=== PATIENT | female | born 1960 | race African-American/Black ===

== ENCOUNTER 2020-07-08 09:21 | Outpatient (REF) | payer OTHER, SELFPAY ==
--- NOTE | ~2020-07-08 | MM_ITS ---
EXAMINATION: MM SCREENING DIGITAL BREAST TOMOSYNTHESIS, BILATERAL CLINICAL INFORMATION: Screening. Asymptomatic. The lifetime risk of breast cancer based on the Tyrer-Cuzick Model is 5%. COMPARISON: Mammography: 07/03/2019, 06/19/2018, 06/03/2017 TECHNIQUE: Digital breast tomosynthesis is performed in both the craniocaudal and mediolateral oblique views along with computer-aided detection (CAD). Synthesized 2D images are generated from the tomosynthesis. FINDINGS: There are scattered areas of fibroglandular density (ACR BI-RADS breast composition Category b). Parenchymal pattern is similar to prior studies. Oval parenchymal asymmetry central mid 9:00 right breast is stable from prior exams. Neither breast shows developing density or interval mass or architectural abnormality. No abnormal calcifications. Skin contours are smooth. MM/MM tomosynthesis screening BI IMPRESSION: No mammographic evidence of malignancy. ASSESSMENT: BI-RADS 2: Benign RECOMMENDATION: Routine annual mammography screening. This patient's information was entered into a reminder system with a target due date for their next mammogram.
== END 2020-07-08 09:22 | disposition home or self-care (01) ==
LOC: HO.MAMMO 09:21
PROVIDERS: PCP Internal Medicine; Visit Provider Internal Medicine
DX: Z12.31 Encounter for screening mammogram for malignant neoplasm of breast (principal)
CPT/HCPCS: 77063; 77067

== ENCOUNTER 2020-11-09 09:34 | Outpatient (REF) | payer OTHER, SELFPAY ==
[2020-11-09 10:06] LABS: MANUAL DIFF FLAG NO
[2020-11-09 10:29] LABS: Basophils Percent Auto 0.2 % (0-2); Hematocrit 39.2 % (37-47); Hemoglobin 12.2 g/dl (12.0-16.0); Imm Gran Abs Auto 0.01 X10*3/uL (0.00-0.03); Imm Gran Pct Auto 0.2 % (0.0-0.4); Lymphocytes Absolute Auto 2.6 X10*3/uL (1.2-4.9); Lymphocytes Percent Auto 50.1 % (20-40); Mean Corpuscular HGB Conc 31.1 g/dl (31.0-35.0); Mean Corpuscular Hemoglobin 26.2 pg (27.0-33.0); Mean Corpuscular Volume 84.1 fL (80-98); Mean Platelet Volume 9.9 fL (9.4-12.3); Monocytes Absolute Auto 0.4 X10*3/uL (0.1-1.2); Monocytes Percent Auto 8.4 % (2-11); Neutrophils Absolute Auto 2.1 X10*3/uL (2.0-8.3); Neutrophils Percent Auto 41.1 % (45-73); Platelet Count 275 X10*3/uL (160-400); Red Blood Count 4.66 X10*6/uL (4.20-5.50); Red Cell Distribution Width 13.8 % (11.0-16.0); White Blood Count 5.1 X10*3/uL (4.8-10.8)
[2020-11-09 10:51] LABS: Alanine Aminotransferase 43 U/L (0-31); Albumin Level 4.6 g/dL (3.5-5.0); Alkaline Phosphatase 129 U/L (39-117); Anion Gap 12 (12-20); Aspartate Amino Transferase 34 U/L (5-31); Bilirubin Total 0.6 mg/dL (0.0-1.0); Blood Urea Nitrogen 13 mg/dL (9-16); Calcium 10.1 mg/dL (8.4-10.2); Carbon Dioxide 27 mmol/L (22-29); Chloride 106 mmol/L (96-108); Cholesterol 238 mg/dL; Estimated Glomerular Filt Rate > 60; Glucose Random 89 mg/dL (60-115); HDL Cholesterol 80 mg/dL; LDL Cholesterol Calculated 146 mg/dl; Potassium 4.4 mmol/L (3.3-5.1); Sodium 141 mmol/L (135-145); Total Protein 7.8 g/dL (6.5-8.0); Triglycerides 63 mg/dL
[2020-11-09 11:13] LABS: Thyroid Stimulating Hormone 1.38 uIU/mL (0.32-4.0)
[2020-11-09 12:12] LABS: Vitamin D 25-OH Total 30.8 ng/mL (>30)
[2020-11-09 17:46] LABS: Folate 19.3 ng/mL (> or = 4.0); Vitamin B12 985 pg/mL (200-900)
== END 2020-11-09 09:35 | disposition home or self-care (01) ==
LOC: HO.LAB 09:34
PROVIDERS: PCP Internal Medicine; Visit Provider Internal Medicine
DX: E78.00 Pure hypercholesterolemia, unspecified (principal)
CPT/HCPCS: 36415; 80053; 80061; 82306; 82607; 82746; 84439; 84443; 85025

== ENCOUNTER 2020-11-30 10:16 | Outpatient (REF) | payer OTHER, SELFPAY ==
--- NOTE | ~2020-11-30 | US_ITS ---
EXAMINATION: US ABDOMEN COMPLETE CLINICAL INFORMATION: Other specified abnormal findings of blood chemistry. COMPARISON: None TECHNIQUE: Real-time imaging of the abdominal viscera. FINDINGS: PANCREAS: Visualized portions of pancreas are normal in appearance. ABDOMINAL AORTA: The proximal, mid, and distal segments are normal in caliber. INFERIOR VENA CAVA: Visualized portions are normal. LIVER: Normal. The liver is normal in size. The liver contour is normal. Parenchymal echogenicity is normal. No focal hepatic lesion. There is no intrahepatic biliary duct dilatation seen. GALLBLADDER: Normal. The gallbladder is physiologically distended without evidence of stones, sludge, polyps, wall thickening or pericholecystic fluid. Negative sonographic Barlow's sign. COMMON BILE DUCT: Normal in caliber measuring 0.5 cm in diameter. RIGHT KIDNEY: Normal. No hydronephrosis. No renal calculi or focal parenchymal lesions. The kidney measures 9.9 cm in maximum dimension. LEFT KIDNEY: Normal. No hydronephrosis. No renal calculi or focal parenchymal lesions. The kidney measures 8.8 cm in maximum dimension. SPLEEN: Normal. The spleen measures 8.2 cm in maximum dimension. FREE FLUID: None. US/US abdomen complete IMPRESSION: Unremarkable sonographic imaging of the abdomen.
== END 2020-11-30 10:17 | disposition home or self-care (01) ==
LOC: HO.US 10:16
PROVIDERS: Visit Provider Internal Medicine
DX: R79.89 Other specified abnormal findings of blood chemistry (principal); R94.5 Abnormal results of liver function studies
CPT/HCPCS: 76700

== ENCOUNTER 2021-07-13 12:28 | Outpatient (REF) | payer OTHER, SELFPAY ==
--- NOTE | ~2021-07-13 | MM_ITS ---
EXAMINATION: MM SCREENING DIGITAL BREAST TOMOSYNTHESIS, BILATERAL CLINICAL INFORMATION: Screening. Asymptomatic. The lifetime risk of breast cancer based on the Tyrer-Cuzick Model is 7.5%. COMPARISON: Mammography: July 08, 2020 and studies dating back to March 02, 2014 TECHNIQUE: Digital breast tomosynthesis is performed in both the craniocaudal and mediolateral oblique views along with computer-aided detection (CAD). Synthesized 2D images are generated from the tomosynthesis. FINDINGS: There are scattered areas of fibroglandular density (ACR BI-RADS breast composition Category b). There are no significant masses, abnormal calcifications, or other abnormalities. MM/MM tomosynthesis screening BI IMPRESSION: There are no significant changes from prior study. ASSESSMENT: BI-RADS 1: Negative RECOMMENDATION: Routine annual mammography screening. This patient's information was entered into a reminder system with a target due date for their next mammogram.
== END 2021-07-13 12:29 | disposition home or self-care (01) ==
LOC: HO.MAMMO 12:28
PROVIDERS: PCP Internal Medicine; Visit Provider Internal Medicine
DX: Z12.31 Encounter for screening mammogram for malignant neoplasm of breast (principal)
CPT/HCPCS: 77063; 77067

== ENCOUNTER 2022-01-17 09:51 | Outpatient (REF) | payer OTHER, SELFPAY ==
[2022-01-17 10:05] LABS: MANUAL DIFF FLAG NO
[2022-01-17 10:18] LABS: Basophils Percent Auto 0.2 % (0-2); Imm Gran Abs Auto 0.01 X10*3/uL (0.00-0.03); Imm Gran Pct Auto 0.2 % (0.0-0.4); Lymphocytes Absolute Auto 2.4 X10*3/uL (1.2-4.9); Lymphocytes Percent Auto 46.5 % (20-40); Mean Corpuscular HGB Conc 31.6 g/dl (31.0-35.0); Mean Corpuscular Volume 82.3 fL (80.0-98.0); Mean Platelet Volume 9.7 fL (9.4-12.3); Monocytes Absolute Auto 0.5 X10*3/uL (0.1-1.2); Monocytes Percent Auto 8.6 % (2-11); Neutrophils Absolute Auto 2.3 x10*3/uL (2.0-8.3); Neutrophils Percent Auto 44.5 % (45-73); Platelet Count 288 X10*3/uL (160-400); Red Blood Count 4.62 X10*6/uL (4.20-5.50); Red Cell Distribution Width 14.2 % (11.0-16.0); White Blood Count 5.3 X10*3/uL (4.8-10.8)
[2022-01-17 10:48] LABS: Alanine Aminotransferase 35 U/L (0-31); Albumin Level 4.6 g/dL (3.5-5.0); Alkaline Phosphatase 124 U/L (39-117); Anion Gap 17 (12-20); Aspartate Amino Transferase 29 U/L (5-31); Bilirubin Total 0.6 mg/dL (0.0-1.0); Blood Urea Nitrogen 19 mg/dL (9-16); Calcium 9.7 mg/dL (8.4-10.2); Carbon Dioxide 25 mmol/L (22-29); Chloride 104 mmol/L (96-108); Cholesterol 227 mg/dL; Estimated Glomerular Filt Rate > 60; Glucose Random 94 mg/dL (60-115); HDL Cholesterol 75 mg/dL; LDL Cholesterol Calculated 138 mg/dl; Potassium 4.4 mmol/L (3.3-5.1); Sodium 142 mmol/L (135-145); Total Protein 7.7 g/dL (6.5-8.0); Triglycerides 70 mg/dL
[2022-01-17 11:11] LABS: Free T4 (Free Thyroxine) 1.25 ng/dL (0.71-1.85); Thyroid Stimulating Hormone 1.12 uIU/mL (0.32-4.0); Vitamin D 25-OH Total 40.9 ng/mL (>30)
[2022-01-17 11:12] LABS: Folate 19.4 ng/mL (> or = 4.0); Vitamin B12 741 pg/mL (200-900)
== END 2022-01-17 09:52 | disposition home or self-care (01) ==
LOC: HO.LAB 09:51
PROVIDERS: PCP Internal Medicine; Visit Provider Internal Medicine
DX: E78.00 Pure hypercholesterolemia, unspecified (principal)
CPT/HCPCS: 36415; 80053; 80061; 82306; 82607; 82746; 84439; 84443; 85025

== ENCOUNTER 2022-04-06 11:59 | Emergency (ER) | payer OTHER, SELFPAY ==
--- NOTE | ~2022-04-06 | CT_ITS ---
EXAMINATION: CT ABDOMEN AND PELVIS WITHOUT CONTRAST CLINICAL INFORMATION: Left back, flank, and left lower quadrant abdominal pain COMPARISON: None TECHNIQUE: Multidetector volumetric imaging was performed from the superior aspect of the liver through the pubic symphysis. Sagittal and coronal reformatted images were obtained on the technologist's workstation. This CT examination was performed using dose optimization techniques as appropriate, variously including the following: *Automated exposure control *Adjustment of mA and/or kV according to patient size (this includes techniques or standardized protocols for targeted exams where dose is matched to indication/reason for exam; i.e. extremities or head) *Use of iterative reconstruction technique DLP: 475 mGy-cm FINDINGS: LUNG BASES: Minimal bibasilar subsegmental atelectasis. LIVER, GALLBLADDER, AND BILIARY TREE: The liver is normal in size, shape, and attenuation. No focal hepatic lesion or biliary ductal dilatation is present. The gallbladder is unremarkable with no evidence of radiopaque gallstones, gallbladder wall thickening, or obvious pericholecystic inflammatory changes. PANCREAS: Unremarkable. SPLEEN: Unremarkable. ADRENAL GLANDS: Unremarkable. KIDNEYS AND URETERS: The kidneys are normal in size, shape, and attenuation. No hydronephrosis, hydroureter, or calculi seen. No perinephric stranding. BLADDER: Unremarkable. GASTROINTESTINAL TRACT: The small and large bowel are unremarkable. The appendix is unremarkable. No free air or ascites. ABDOMINAL WALL: No significant hernia is appreciated. LYMPH NODES: No lymphadenopathy. VASCULAR: Unremarkable. PELVIC VISCERA: The patient appears to be posthysterectomy. Trace free pelvic fluid. OSSEOUS STRUCTURES: No acute fracture or suspicious osseous lesion. Mild degenerative disc disease at L5-S1. Lower lumbar facet arthrosis. CT/CT abdomen pelvis wo IV con IMPRESSION: 1. No acute intra-abdominal process identified. 2. Trace free pelvic fluid.
--- NOTE | ~2022-04-06 | CT_ITS ---
EXAMINATION: CT HEAD WITHOUT CONTRAST CLINICAL INFORMATION: New onset headache. COMPARISON: CT angiogram of the neck 11/19/2018. TECHNIQUE: Contiguous axial imaging was performed from the skull base to vertex without intravenous administration of contrast. This CT examination was performed using dose optimization techniques as appropriate, variously including the following: *Automated exposure control *Adjustment of mA and/or kV according to patient size (this includes techniques or standardized protocols for targeted exams where dose is matched to indication/reason for exam; i.e. extremities or head) *Use of iterative reconstruction technique DLP: 607 mGy-cm FINDINGS: There is no acute intracranial hemorrhage or abnormal extra-axial collection. No intracranial mass effect or midline shift. Lateral and third ventricles are normal. No hydrocephalus. Holbrook-white matter differentiation is preserved and there is no evidence of acute territorial infarct. The calvarium and skull base are intact. Mastoid air cells and middle ear cavities are well-aerated. No active paranasal sinus disease. CT/CT head/brain wo IV con IMPRESSION: Normal CT scan of the head. No evidence of acute territorial infarct or hemorrhage. No intracranial mass effect or hydrocephalus.
[2022-04-06 12:12] VITALS: BP 129/89; PULSE 79; RESP 18; TEMP 36.6; O2SAT 99; BMI 27.6
--- NOTE | 2022-04-06 12:17 | ED_ITS ---
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 Injury <PAGE Jin - Last Filed: 04/06/22 12:25> Time Seen by Provider: 04/06/22 13:39 <PAGE Jin - Last Filed: 04/06/22 12:25> History of Present Illness HPI Narrative: patient with 2 complaints 1st complaint is right-sided low back pain worse with movement with no dysuria no numbness no weakness no tingling no radiation of pain Second complaint is a gradual onset headache that is behind her eyes in front of her head that has been going on for for 5 days, there is no nausea no vomiting no vision changes no dizziness no fainting no feeling faint no stiff neck no fever <PAGE Weiss - Last Filed: 04/06/22 15:59> Related Data Home Medications: Home Medications Medication Instructions Recorded Confirmed ascorbic acid (vitamin C) 500 mg mg PO 02/08/20 02/23/22 capsule cholecalciferol (vitamin D3) 25 25 mcg PO DAILY 02/08/20 02/23/22 mcg (1,000 unit) capsule cyanocobalamin (vitamin B-12) 1,000 mcg PO DAILY 02/08/20 02/23/22 1,000 mcg capsule multivitamin 1 tab PO DAILY 02/08/20 02/23/22 multivitamin with minerals 1 tab PO BEDTIME 11/04/20 02/23/22 (Hair,Skin and Nails tablet) Previous Rx's Medication Instructions Recorded polyethylene glycol 3350 17 gram 17 g PO DAILY 30 days #30 ea 11/06/21 oral powder packet (Miralax) bisacodyl 5 mg tablet,delayed 10 mg PO ONCE 1 day #2 tabs 01/31/22 release (Dulcolax (bisacodyl)) polyethylene glycol 3350 17 238 g PO ONCE #238 grams 01/31/22 gram/dose oral powder (Miralax) fexofenadine 180 mg tablet 180 mg PO DAILY #90 tabs 02/23/22 fluticasone propionate 50 2 spray intranasal DAILY #16 grams 02/23/22 mcg/actuation nasal spray,suspension acetaminophen 500 mg tablet 1,000 mg PO QID PRN pain #30 tabs 04/06/22 cyclobenzaprine 5 mg tablet 5 mg PO TID PRN muscle spasm #10 04/06/22 tabs naproxen 500 mg tablet (Naprosyn) 500 mg PO BID PRN pain #14 tabs 04/06/22 oxycodone 5 mg tablet 5 mg PO Q6H PRN pain #10 tabs 04/06/22 <PAGE Jin - Last Filed: 04/06/22 12:25> Allergies/Adverse Reactions: Allergies Allergy/AdvReac Type Severity Reaction Status Date / Time latex Allergy Unknown unknown Verified 02/23/22 11:39 seasonal Allergy Unknown Unknown Uncoded 11/06/21 12:59 <PAGE Jin - Last Filed: 04/06/22 12:25> Review of Systems Review of Systems: positive for back pain and headache Negatives are no fever no chills no dizziness no weakness no fainting no feeling faint no vision changes no nausea or vomiting no confusion no stiff neck no sore throat no difficulty breathing or swallowing no chest pain no abdominal pain no nausea vomiting or diarrhea no dysuria no frequency no numbness weakness or tingling no radiation of the back pain, no trouble walking no skin rash <PAGE Weiss - Last Filed: 04/06/22 15:59> Yes all other systems are reviewed and are negative <PAGE Weiss - Last Filed: 04/06/22 15:59> [facility] Past Medical History Source: nursing notes reviewed <PAGE Weiss - Last Filed: 04/06/22 15:59> Medical History: Medical History (Updated 04/06/22 @ 15:53 by PAGE Weiss) Allergic rhinitis Carotid aneurysm, left Hypercholesterolemia Obstructive sleep apnea Thoracic aortic ectasia Uterine fibroid <PAGE Jin - Last Filed: 04/06/22 12:25> Surgical History: Surgical History History of shoulder surgery History of tubal ligation S/P [id number] (total abdominal hysterectomy and bilateral salpingo-oophorectomy) <PAGE Jin Last Filed: 04/06/22 12:25> Family History Family History: Family History Father Diabetes Hypertension Throat cancer Mother Diabetes Hypertension Stroke Sister History of ETOH abuse Kidney disease <PAGE Jin - Last Filed: 04/06/22 12:25> Social History Social History: Social History Housing: Apartment Alcohol intake: current Alcohol intake frequency: a few times a month Patient Tobacco Use Status: Former Tobacco user Tobacco use type: Cigarette Years Smoked: stopped 2011 Smoked in Last 30 Days: No e-Cigarette/Vaping Use: Never Used Second Hand Smoke Exposure: No Advance Directives: No Advance Directives Information Provided: Yes service: No Current occupational status: employed Cognitive needs: No Hearing needs: No Vision needs: Yes <PAGE Jin - Last Filed: 04/06/22 12:25> Physical Exam Vital Signs: Vital Signs: Last Vital Signs Temp 98.7 F 04/06/22 14:26 Pulse 71 04/06/22 14:26 Resp 20 04/06/22 14:26 BP 146/98 H 04/06/22 14:26 Pulse Ox 99 04/06/22 14:26 O2 Del Method 04/06/22 14:26 BMI result Body Mass Index 27.6 <PAGE Jin - Last Filed: 04/06/22 12:25> Vital Signs: Last Vital Signs Temp 98.7 F 04/06/22 14:26 Pulse 71 04/06/22 14:26 Resp 20 04/06/22 14:26 BP 146/98 H 04/06/22 14:26 Pulse Ox 99 04/06/22 14:26 O2 Del Method 04/06/22 14:26 BMI result Body Mass Index 27.6 <PAGE Weiss - Last Filed: 04/06/22 15:59> general appearance no acute distress Head is normocephalic atraumatic The ears are clear The eyes pupils equal round reactive light extraocular motions are intact no redness no discharge no photophobia The pharynx is clear with moist mucous membranes no redness swelling or exudate Neck is supple Chest clear to auscultation bilateral Abdomen is soft and nontender Heart no murmur The back had reproducible right lower lumbar tenderness, pain was reproduced with movement, there is no CVA tenderness, the skin was normal no rash wound or redness, no focal bony tenderness Extremities full range of motion x4 Gait and balance were normal Neuro cranial nerves 2-12 intact as tested, patient is A&O x3, patient interaction both comprehension and expression are normal, motor is 5/5 x4, sens ation intact and symmetrical <PAGE Weiss - Last Filed: 04/06/22 15:59> Course Course Course Narrative: E-12:17PM - 61yoF presenting to the ED c/o left-sided back/left flank/left lower quadrant abdominal pain for the past few days worse today. Reports that she also had urinary sediment that appeared brown in color. She denies any fevers, dysuria, hematuria, diarrhea constipation or any other symptoms complaints or concerns at this time. Plan: Labs, UA, CT scan abdomen pelvis with IV contrast ordered at this time to evaluate possible kidney stone versus UTI. Patient is stable she will be sent back to the waiting room to be evaluated in the ED. <PAGE Jin - Last Filed: 04/06/22 12:25> RME-12:17PM - 61yoF presenting to the ED c/o left-sided back/left flank/left lower quadrant abdominal pain for the past few days worse today. Reports that she also had urinary sediment that appeared brown in color. She denies any fevers, dysuria, hematuria, diarrhea constipation or any other symptoms complaints or concerns at this time. Plan: Labs, UA, CT scan abdomen pelvis with IV contrast ordered at this time to evaluate possible kidney stone versus UTI. Patient is stable she will be sent back to the waiting room to be evaluated in the ED. CT of the head was done because of her new onset headache, CT was normal and patient has no accompanying neurologic deficit and in the ER pain was very mild CT of abdomen and pelvis was done to be sure there was no kidney stone or mass and there were no acute findings on the CT abdomen and pelvis done without contrast Urinalysis did not show signs of an infection and patient has no dysuria or frequency Labs were otherwise unremarkable Plan discussed with patient is a few days off work, analgesics and muscle relax er for the back and will follow with her doctor as needed <PAGE Weiss - Last Filed: 04/06/22 15:59> Medical Decision Making Lab Data MDM Lab Attestation statement: I reviewed the patient's lab results. <PAGE Weiss - Last Filed: 04/06/22 15:59> Result Diagrams: : 04/06/22 12:20 04/06/22 12:20 <PAGE Jin - Last Filed: 04/06/22 12:25> Labs: Lab Results 04/06/22 04/06/22 04/06/22 Range/Units 12:20 12:20 12:20 WBC 7.5 (4.8-10.8) X10*3/uL RBC 4.63 (4.20-5.50) X10*6/uL Hgb 11.9 L (12.0-16.0) g/dl Hct 37.4 (37.0-47.0) % MCV 80.8 (80.0-98.0) fL MCH 25.7 L (27.0-33.0) pg MCHC 31.8 (31.0-35.0) g/dl RDW 13.9 (11.0-16.0) % Plt Count 288 (160-400) X10*3/uL MPV 9.9 (9.4-12.3) fL Immature Gran % (Auto) 0.3 (0.0-0.4) % Neut % (Auto) 55.6 (45-73) % Lymph % (Auto) 37.0 (20-40) % Reeves % (Auto) 7.0 (2-11) % Eos % (Auto) 0.0 (0-4) % Baso % (Auto) 0.1 (0-2) % Lymph # (Auto) 2.8 (1.2-4.9) X10*3/uL Reeves # (Auto) 0.5 (0.1-1.2) X10*3/uL Eos # (Auto) 0.0 (0.0-0.4) X10*3/uL Baso # (Auto) 0.0 (0.0-0.2) X10*3/uL Abs Immat Gran (auto) 0.02 (0.00-0.03) X10*3/uL Absolute Neuts (auto) 4.2 (2.0-8.3) x10*3/uL Absolute Nucleated RBC 0.000 (0.0-0.012) X10*3/uL Nucleated RBC % (auto) 0.0 (0.0-0.2) /100WBC PT 11.8 (10.0-13.1) SEC INR 1.0 (0.9-1.1) Sodium 138 (135-145) mmol/L Potassium 3.8 (3.3-5.1) mmol/L Chloride 105 (96-108) mmol/L Carbon Dioxide 22 (22-29) mmol/L Anion Gap 15 (12-20) BUN 12 (9-16) mg/dL Creatinine 0.79 (0.5-1.4) mg/dL Estim Creat Clear Calc 68.7 Estimated GFR > 60 Random Glucose 89 (60-115) mg/dL Calcium 9.9 (8.4-10.2) mg/dL Magnesium 1.9 (1.6-2.6) mg/dL Total Bilirubin 0.7 (0.0-1.0) mg/dL AST 32 H (5-31) U/L ALT 35 H (0-31) U/L Alkaline Phosphatase 129 H (39-117) U/L Total Protein 7.5 (6.5-8.0) g/dL Albumin 4.5 (3.5-5.0) g/dL Urine Color Urine Appearance Urine pH (5.0-9.0) Ur Specific Poplar (1.005-1.025) Urine Protein (Neg-Trace) mg/dL Urine Glucose (UA) (Negative) mg/dL Urine Ketones (Negative) mg/dL Urine Blood (Negative) Urine Nitrite (Negative) Ur Leukocyte Esterase (Negative) Urine RBC (0-2) /HPF Urine WBC (0-5) /HPF Ur Squamous Epith Cells (0-2) /HPF Urine Bacteria (None Seen) Hyaline Casts (0-2) /LPF 04/06/ Range/Units 15:19 WBC (4.8-10.8) X10*3/uL RBC (4.20-5.50) X10*6/uL Hgb (12.0-16.0) g/dl Hct (37.0-47.0) % MCV (80.0-98.0) fL MCH (27.0-33.0) pg MCHC (31.0-35.0) g/dl RDW (11.0-16.0) % Plt Count (160-400) X10*3/uL MPV (9.4-12.3) fL Immature Gran % (Auto) (0.0-0.4) % Neut % (Auto) (45-73) % Lymph % (Auto) (20-40) % Reeves % (Auto) (2-11) % Eos % (Auto) (0-4) % Baso % (Auto) (0-2) % Lymph # (Auto) (1.2-4.9) X10*3/uL Reeves # (Auto) (0.1-1.2) X10*3/uL Eos # (Auto) (0.0-0.4) X10*3/uL Baso # (Auto) (0.0-0.2) X10*3/uL Abs Immat Gran (auto) (0.00-0.03) X10*3/uL Absolute Neuts (auto) (2.0-8.3) x10*3/uL Absolute Nucleated RBC (0.0-0.012) X10*3/uL Nucleated RBC % (auto) (0.0-0.2) /100WBC PT (10.0-13.1) SEC INR (0.9-1.1) Sodium (135-145) mmol/L Potassium (3.3-5.1) mmol/L Chloride (96-108) mmol/L Carbon Dioxide (22-29) mmol/L Anion Gap (12-20) BUN (9-16) mg/dL Creatinine (0.5-1.4) mg/dL Estim Creat Clear Calc Estimated GFR Random Glucose (60-115) mg/dL Calcium (8.4-10.2) mg/dL Magnesium (1.6-2.6) mg/dL Total Bilirubin (0.0-1.0) mg/dL AST (5-31) U/L ALT (0-31) U/L Alkaline Phosphatase (39-117) U/L Total Protein (6.5-8.0) g/dL Albumin (3.5-5.0) g/dL Urine Color Yellow Urine Appearance Clear Urine pH 5.0 (5.0-9.0) Ur Specific Poplar 1.020 (1.005-1.025) Urine Protein Negative (Neg-Trace) mg/dL Urine Glucose (UA) Negative (Negative) mg/dL Urine Ketones 15 (Negative) mg/dL Urine Blood Trace H (Negative) Urine Nitrite Negative (Negative) Ur Leukocyte Esterase Negative (Negative) Urine RBC 0-2 (0-2) /HPF Urine WBC 0-5 (0-5) /HPF Ur Squamous Epith Cells 6-10 (0-2) /HPF Urine Bacteria 1+ (None Seen) Hyaline Casts 0-2 (0-2) /LPF <PAGE Jin - Last Filed: 04/06/22 12:25> Lab Results 04/06/22 04/06/22 04/06/22 Range/Units 12:20 12:20 12:20 WBC 7.5 (4.8-10.8) X10*3/uL RBC 4.63 (4.20-5.50) X10*6/uL Hgb 11.9 L (12.0-16.0) g/dl Hct 37.4 (37.0-47.0) % MCV 80.8 (80.0-98.0) fL MCH 25.7 L (27.0-33.0) pg MCHC 31.8 (31.0-35.0) g/dl RDW 13.9 (11.0-16.0) % Plt Count 288 (160-400) X10*3/uL MPV 9.9 (9.4-12.3) fL Immature Gran % (Auto) 0.3 (0.0-0.4) % Neut % (Auto) 55.6 (45-73) % Lymph % (Auto) 37.0 (20-40) % Reeves % (Auto) 7.0 (2-11) % Eos % (Auto) 0.0 (0-4) % Baso % (Auto) 0.1 (0-2) % Lymph # (Auto) 2.8 (1.2-4.9) X10*3/uL Reeves # (Auto) 0.5 (0.1-1.2) X10*3/uL Eos # (Auto) 0.0 (0.0-0.4) X10*3/uL Baso # (Auto) 0.0 (0.0-0.2) X10*3/uL Abs Immat Gran (auto) 0.02 (0.00-0.03) X10*3/uL Absolute Neuts (auto) 4.2 (2.0-8.3) x10*3/uL Absolute Nucleated RBC 0.000 (0.0-0.012) X10*3/uL Nucleated RBC % (auto) 0.0 (0.0-0.2) /100WBC PT 11.8 (10.0-13.1) SEC INR 1.0 (0.9-1.1) Sodium 138 (135-145) mmol/L Potassium 3.8 (3.3-5.1) mmol/L Chloride 105 (96-108) mmol/L Carbon Dioxide 22 (22-29) mmol/L Anion Gap 15 (12-20) BUN 12 (9-16) mg/dL Creatinine 0.79 (0.5-1.4) mg/dL Estim Creat Clear Calc 68.7 Estimated GFR > 60 Random Glucose 89 (60-115) mg/dL Calcium 9.9 (8.4-10.2) mg/dL Magnesium 1.9 (1.6-2.6) mg/dL Total Bilirubin 0.7 (0.0-1.0) mg/dL AST 32 H (5-31) U/L ALT 35 H (0-31) U/L Alkaline Phosphatase 129 H (39-117) U/L Total Protein 7.5 (6.5-8.0) g/dL Albumin 4.5 (3.5-5.0) g/dL Urine Color Urine Appearance Urine pH (5.0-9.0) Ur Specific Poplar (1.005-1.025) Urine Protein (Neg-Trace) mg/dL Urine Glucose (UA) (Negative) mg/dL Urine Ketones (Negative) mg/dL Urine Blood (Negative) Urine Nitrite (Negative) Ur Leukocyte Esterase (Negative) Urine RBC (0-2) /HPF Urine WBC (0-5) /HPF Ur Squamous Epith Cells (0-2) /HPF Urine Bacteria (None Seen) Hyaline Casts (0-2) /LPF 12/16/22 Range/Units 15:19 WBC (4.8-10.8) X10*3/uL RBC (4.20-5.50) X10*6/uL Hgb (12.0-16.0) g/dl Hct (37.0-47.0) % MCV (80.0-98.0) fL MCH (27.0-33.0) pg MCHC (31.0-35.0) g/dl RDW (11.0-16.0) % Plt Count (160-400) X10*3/uL MPV (9.4-12.3) fL Immature Gran % (Auto) (0.0-0.4) % Neut % (Auto) (45-73) % Lymph % (Auto) (20-40) % Reeves % (Auto) (2-11) % Eos % (Auto) (0-4) % Baso % (Auto) (0-2) % Lymph # (Auto) (1.2-4.9) X10*3/uL Reeves # (Auto) (0.1-1.2) X10*3/uL Eos # (Auto) (0.0-0.4) X10*3/uL Baso # (Auto) (0.0-0.2) X10*3/uL Abs Immat Gran (auto) (0.00-0.03) X10*3/uL Absolute Neuts (auto) (2.0-8.3) x10*3/uL Absolute Nucleated RBC (0.0-0.012) X10*3/uL Nucleated RBC % (auto) (0.0-0.2) /100WBC PT (10.0-13.1) SEC INR (0.9-1.1) Sodium (135-145) mmol/L Potassium (3.3-5.1) mmol/L Chloride (96-108) mmol/L Carbon Dioxide (22-29) mmol/L Anion Gap (12-20) BUN (9-16) mg/dL Creatinine (0.5-1.4) mg/dL Estim Creat Clear Calc Estimated GFR Random Glucose (60-115) mg/dL Calcium (8.4-10.2) mg/dL Magnesium (1.6-2.6) mg/dL Total Bilirubin (0.0-1.0) mg/dL AST (5-31) U/L ALT (0-31) U/L Alkaline Phosphatase (39-117) U/L Total Protein (6.5-8.0) g/dL Albumin (3.5-5.0) g/dL Urine Color Yellow Urine Appearance Clear Urine pH 5.0 (5.0-9.0) Ur Specific Poplar 1.020 (1.005-1.025) Urine Protein Negative (Neg-Trace) mg/dL Urine Glucose (UA) Negative (Negative) mg/dL Urine Ketones 15 (Negative) mg/dL Urine Blood Trace H (Negative) Urine Nitrite Negative (Negative) Ur Leukocyte Esterase Negative (Negative) Urine RBC 0-2 (0-2) /HPF Urine WBC 0-5 (0-5) /HPF Ur Squamous Epith Cells 6-10 (0-2) /HPF Urine Bacteria 1+ (None Seen) Hyaline Casts 0-2 (0-2) /LPF <PAGE Weiss - Last Filed: 04/06/22 15:59> Discharge Plan Discharge Clinical Impression: Back pain, Headache <PAGE Jin - Last Filed: 04/06/22 12:25> Patient Disposition: Home, Self-Care <PAGE Jin - Last Filed: 04/06/22 12:25> Additional Instructions: our workup today did not find any dangerous condition CT exam of her head was normal no evidence of any mass or bleeding or tumor So for the headache it they continue follow with primary doctor, you could use Tylenol or Motrin as needed The workup for your back pain included a CT scan to make sure there are no kidney stones or other pathology and the scan was normal no sign of anything dangerous Urine test was normal Other labs did not show any acute abnormality Your exam is consistent with a strain in her lower back so we are writing for some pain medicine and muscle relaxer as well as a work note Follow with your doctor for possible physical therapy and further evaluation if symptoms continue Return to the ER any time any worse condition or any concerns <PAGE Jin - Last Filed: 04/06/22 12:25> Prescriptions: New naproxen [Naprosyn] 500 mg tablet 500 mg PO BID PRN (Reason: pain) Qty: 14 0RF acetaminophen 500 mg tablet 1,000 mg PO QID PRN (Reason: pain) Qty: 30 0RF cyclobenzaprine 5 mg tablet 5 mg PO TID PRN (Reason: muscle spasm) Qty: 10 0RF oxycodone 5 mg tablet 5 mg PO Q6H PRN (Reason: pain) Qty: 10 0RF Rx Instructions: Partial Fill upon patient request. No Action cholecalciferol (vitamin D3) 25 mcg (1,000 unit) capsule 25 mcg PO DAILY cyanocobalamin (vitamin B-12) 1,000 mcg capsule 1,000 mcg PO DAILY multivitamin Tablet 1 tab PO DAILY ascorbic acid (vitamin C) 500 mg capsule PO multivitamin with minerals [Hair,Skin and Nails] Tablet 1 tab PO BEDTIME polyethylene glycol 3350 [Miralax] 17 gram powder in packet 17 g PO DAILY 30 Days Qty: 30 2RF fexofenadine 180 mg tablet 180 mg PO DAILY Qty: 90 3RF fluticasone propionate 50 mcg/actuation spray,suspension 2 spray intranasal DAILY Qty: 16 3RF bisacodyl [Dulcolax (bisacodyl)] 5 mg tablet,delayed release (DR/EC) 10 mg PO ONCE 1 Days Qty: 2 0RF Rx Instructions: take 2 tabs at noon the day before your colonoscopy polyethylene glycol 3350 [Miralax] 17 gram/dose powder 238 g PO ONCE Qty: 238 0RF Rx Instructions: As directed by gastroenterology department at [facility] <PAGE Jin - Last Filed: 04/06/22 12:25> Stand Alone Forms: Work/School Release <PAGE Jin - Last Filed: 04/06/22 12:25>
[2022-04-06 12:31] LABS: MANUAL DIFF FLAG NO
[2022-04-06 12:32] LABS: Basophils Percent Auto 0.1 % (0-2); Hematocrit 37.4 % (37.0-47.0); Hemoglobin 11.9 g/dl (12.0-16.0); Imm Gran Abs Auto 0.02 X10*3/uL (0.00-0.03); Imm Gran Pct Auto 0.3 % (0.0-0.4); Lymphocytes Absolute Auto 2.8 X10*3/uL (1.2-4.9); Mean Corpuscular HGB Conc 31.8 g/dl (31.0-35.0); Mean Corpuscular Hemoglobin 25.7 pg (27.0-33.0); Mean Corpuscular Volume 80.8 fL (80.0-98.0); Mean Platelet Volume 9.9 fL (9.4-12.3); Monocytes Absolute Auto 0.5 X10*3/uL (0.1-1.2); Neutrophils Absolute Auto 4.2 x10*3/uL (2.0-8.3); Neutrophils Percent Auto 55.6 % (45-73); Platelet Count 288 X10*3/uL (160-400); Red Blood Count 4.63 X10*6/uL (4.20-5.50); Red Cell Distribution Width 13.9 % (11.0-16.0); White Blood Count 7.5 X10*3/uL (4.8-10.8)
[2022-04-06 12:42] LABS: Prothrombin Time 11.8 SEC (10.0-13.1)
[2022-04-06 12:51] LABS: Alanine Aminotransferase 35 U/L (0-31); Albumin Level 4.5 g/dL (3.5-5.0); Alkaline Phosphatase 129 U/L (39-117); Anion Gap 15 (12-20); Aspartate Amino Transferase 32 U/L (5-31); Bilirubin Total 0.7 mg/dL (0.0-1.0); Blood Urea Nitrogen 12 mg/dL (9-16); Calcium 9.9 mg/dL (8.4-10.2); Carbon Dioxide 22 mmol/L (22-29); Chloride 105 mmol/L (96-108); Creatinine Clr Calc Pharmacy 68.7; Estimated Glomerular Filt Rate > 60; Glucose Random 89 mg/dL (60-115); Magnesium 1.9 mg/dL (1.6-2.6); Potassium 3.8 mmol/L (3.3-5.1); Sodium 138 mmol/L (135-145); Total Protein 7.5 g/dL (6.5-8.0)
--- NOTE | 2022-04-06 13:59 | PC.NURSE ---
Pt off floor to ct.
[2022-04-06 14:26] VITALS: BP 146/98; PULSE 71; RESP 20; TEMP 37.1; O2SAT 99
[2022-04-06 15:32] LABS: Appearance Urine Clear; Color Urine Yellow; Glucose Urine UA Negative (Negative); Leukocyte Esterase Urine Negative (Negative); Nitrite Urine Negative (Negative); UMIC TRIGGER UACC YES; Urine Blood Trace (Negative); Urine Ketones 15 mg/dL (Negative); Urine Protein Negative (Neg-Trace)
[2022-04-06 15:35] LABS: Bacteria Urine 1+ (None Seen); Hyaline Casts Urine 0-2 /LPF (0-2); RBC Urine 0-2 /HPF (0-2); WBC Urine 0-5 /HPF (0-5)
--- NOTE | 2022-04-06 15:41 | PC.NURSE ---
PA to bedside for reeval, pt cleared for dc home.
== END 2022-04-06 16:06 | disposition home or self-care (01) ==
PROVIDERS: Physician Assistant Medical; Emergency Provider Student in an Organized Health Care Education/Training Program; PCP Internal Medicine
DX: M54.50 Low back pain, unspecified (principal); R51.9 Headache, unspecified
CPT/HCPCS: 36415; 70450; 74176; 80053; 81001; 83735; 85025; 85610; 99284

== ENCOUNTER 2022-07-19 10:30 | Outpatient (REF) | payer OTHER, SELFPAY ==
--- NOTE | ~2022-07-19 | MM_ITS ---
EXAMINATION: MM SCREENING DIGITAL BREAST TOMOSYNTHESIS, BILATERAL CLINICAL INFORMATION: Screening. Asymptomatic. The lifetime risk of breast cancer based on the Tyrer-Cuzick Model is 4.3%. COMPARISON: Mammography: July 13, 2021 and studies dating back to June 03, 2017 TECHNIQUE: Digital breast tomosynthesis is performed in both the craniocaudal and mediolateral oblique views along with computer-aided detection (CAD). Synthesized 2D images are generated from the tomosynthesis. FINDINGS: There are scattered areas of fibroglandular density (ACR BI-RADS breast composition Category b). There are no significant masses, abnormal calcifications, or other abnormalities. MM/MM tomosynthesis screening BI IMPRESSION: No significant changes ASSESSMENT: BI-RADS 1: Negative RECOMMENDATION: Routine annual mammography screening. This patient's information was entered into a reminder system with a target due date for their next mammogram.
== END 2022-07-19 10:31 | disposition home or self-care (01) ==
LOC: HO.MAMMO 10:30
PROVIDERS: Visit Provider Internal Medicine
DX: Z12.31 Encounter for screening mammogram for malignant neoplasm of breast (principal)
CPT/HCPCS: 77063; 77067

== ENCOUNTER 2022-11-01 07:32 | Day surgery (SDC) | payer OTHER, SELFPAY ==
[2022-10-30 14:19] VITALS: BMI 27.6
--- NOTE | 2022-11-01 08:38 | MHC.SHP ---
Pre-Procedural Eval Section A Date of Service: 11/01/22 Section B Chief Complaint: screening Details of Present Illness: PMH: Allergic rhinitis Carotid aneurysm, left Hypercholesterolemia Obstructive sleep apnea Thoracic aortic ectasia Uterine fibroid Surgical History: History of shoulder surgery History of tubal ligation S/P ROBERTO-BSO (total abdominal hysterectomy and bilateral salpingo-oophorectomy) Present Medications: see Short Stay Collaborative assessment Allergies: Allergies Allergy/AdvReac Type Severity Reaction Status Date / Time latex Allergy Unknown unknown Verified 02/23/22 11:39 seasonal Allergy Unknown Unknown Uncoded 11/06/21 12:59 Review of Systems Review of Systems Comment: Ten point ROS negative Exam Exam Comment: Gen appear: No acute distress HEENT: no icterus Chest: No overt resp distress Abd: soft, nontender, nondistended Psych: Stable affect, answering questions appropriately Neuro: A/Ox3 noted to move all extremities spontaneously Ext: no peripheral edema Plan Diagnosis/Plan: Unchanged I have reviewed the history and physical and performed a pertinent physical examination on my patient. No changes have occurred unless specified. Time Spent With Patient Time: Total time managing care of this patient today ____ minutes.
[2022-11-01 09:25] VITALS: BP 127/86; PULSE 67; RESP 15; TEMP 36.3; O2SAT 98
--- NOTE | 2022-11-01 09:40 | ECG_ITS ---
Test Reason : t wave inversion Blood Pressure : / mmHG Vent. Rate : 063 BPM Atrial Rate : 063 BPM P-R Int : 218 ms QRS Dur : 098 ms QT Int : 424 ms P-R-T Axes : 016 -34 -50 degrees QTc Int : 433 ms Sinus rhythm with 1st degree A-V block Left axis deviation Moderate voltage criteria for LVH, may be normal variant ( R in aVL , Hamlin product ) T wave abnormality, consider anterior ischemia Abnormal ECG No previous ECGs available Referred By: Seymour Goodwin Electronically Signed By:PIPER MAGAÑA MD
[2022-11-01] MEDS: Lactated Ringers 1,000 ML 100 ML IVCONT (09:50)
--- NOTE | 2022-11-01 09:52 | HO.ANESPROP2 ---
HPI - Anesthesia Eval Consult details Narrative: for colonoscopy [facility] Active Problems Active Problems: All Active Problems (Updated 11/01/22 @ 09:03 by Alexandra Todd RN) Annual physical exam (Acute) LFTs abnormal (Acute) Well woman exam (Acute) Overweight (BMI 25.0-29.9) (Acute) Constipation (Acute) Cough (Acute) Sleep apnea (Acute) Encounter for screening for malignant neoplasm of colon (Acute) Hypercholesterolemia (Acute) Allergic rhinitis (Acute) Obstructive sleep apnea (Acute) Past Medical History Medical History Allergic rhinitis Carotid aneurysm, left Hypercholesterolemia Obstructive sleep apnea Thoracic aortic ectasia Uterine fibroid Family History Family History Father Diabetes Hypertension Throat cancer Mother Diabetes Hypertension Stroke Sister History of ETOH abuse Kidney disease Family history of problems with anesthesia: No Surgical History Surgical History History of shoulder surgery History of tubal ligation Hx of colonoscopy S/P ROBERTO-BSO (total abdominal hysterectomy and bilateral salpingo-oophorectomy) History of Problems with Anesthesia: No Social History Social History Housing: Apartment Alcohol intake: current Alcohol intake frequency: a few times a month Patient Tobacco Use Status: Former Tobacco user Quit Date: 20 yrs ago Tobacco use type: Cigarette Years Smoked: stopped 2010 e-Cigarette/Vaping Use: Never Used Second Hand Smoke Exposure: No Use of substances other than those prescribed or required for medical reasons: No Are you DNR?: No Advance Directives: No Advance Directives Information Provided: Yes service: No Current occupational status: employed Cognitive needs: No Hearing needs: No Vision needs: Yes Meds Allergies Allergy/AdvReac Type Severity Reaction Status Date / Time latex Allergy Unknown unknown Verified 11/01/22 09:04 seasonal Allergy Unknown Unknown Uncoded 11/06/21 12:59 Active Medications: Current Medications Albuterol Sulfate (Albuterol Sulfate (0.083%) 2.5 Mg/3 Ml Vial.Neb) 2.5 mg INHALE ONCE PRN PRN Reason: Shortness of Breath/Wheezing Lactated Ringer's (Lr) 1,000 mls @ 100 mls/hr IVCONT .Q10H FAISAL Sodium Biphosphate/Sodium Phosphate (Sodium Phosphate,[place]-Dibasic 133 Ml Enema) 133 ml MO ONCE FAISAL Home Medications Medication Instructions Recorded Confirmed Last Taken Type ascorbic acid (vitamin C) 500 mg mg PO 02/08/20 02/23/22 Unknown History capsule cholecalciferol (vitamin D3) 25 25 mcg PO DAILY 02/08/20 02/23/22 Unknown History mcg (1,000 unit) capsule cyanocobalamin (vitamin B-12) 1,000 mcg PO DAILY 02/08/20 02/23/22 Unknown History 1,000 mcg capsule Exam Exam Date and Time: November 01, 2022 0952 Height,Weight and Vital Signs: Height 5 ft 2 in Weight 68.492 kg Last Vital Signs Temp 97.3 F 11/01/22 09:25 Pulse 67 11/01/22 09:25 Resp 15 11/01/22 09:25 BP 127/86 11/01/22 09:25 Pulse Ox 98 11/01/22 09:25 O2 Del Method Room Air 11/01/22 09:25 Airway Mallampati Class: II TM Dist: >3cm Neck ROM: Full Heart: rrr Lungs: cta Assessment and Plan Assessment Anesthesia Assessment: Anesthesia Plan Discussed Final Anesthetic Review Family History of Problems with Anesthesia: No History of Problems with Anesthesia: No NPO: Yes ASA Class: II Final Preanesthetic Review: No Changes in Pt Med Stat, Meds/Allgs Chart Reviewed, Consent Obtained/Reviewed and Anes Risks/Benef Reviewed Patient Risk: Low Procedure Risk: Low Anesthetic Plan Anesthetic Plan: MAC: Disposition: Standard PACU
--- NOTE | 2022-11-01 10:05 | PC.NURSE ---
t wave inversion noted on rythym. anes made aware and eval'd at bedside. ekg done. medical hx reviewed with anes and pt along with ekg and ok'd to proceed. pt asymptomatic
--- NOTE | 2022-11-01 10:54 | P.OP_ITS ---
Operative Note Operative Note Date of Service: 11/01/22 Narrative: Procedure: Colonoscopy Indication: Screening Endoscopist: Lucy Rivera MD Anesthesia Provider: Jerald Bonner MD Anesthesia type: MAC Instrument: Olympus [id number]-H190L Consent: Indication, risks vs benefits, and alternatives were discussed with the patient who gave written informed consent to proceed. EKG, pulse, pulse oximetry and blood pressure were monitored throughout the procedure. Please see anesthesia flowsheet. Procedure: The patient was brought to the procedure room and placed in the left lateral decubitus position. IV medications were administered by the anesthesia provider in attendance. A digital rectal exam was performed which was normal. A distal attachment cap was affixed to the tip of the scope and the colonoscope was then inserted through the anus and advanced through the colon to the cecum at 75 cm,and terminal ileum. Mucosa was carefully examined under high definition white light as the instrument was slowly withdrawn in a retrograde panoramic fashion. Retroflexion was performed in rectum. The procedure was not difficult. There were no immediate obvious complications. The quality of the prep was BBPS: 2+3+3 = adequate Withdrawal time 12 minutes. Limitations: No limitations. Findings: Mucosa: Normal to cecum and terminal ileum. Protruding lesions: * 1 sessile polyp of size 4 mm in sigmoid colon. Cold snare polypectomy was performed. The polyp was completely removed and retrieved. * Medium internal hemorrhoids without stigmata of recent bleeding. Impression: 1. Normal colon and terminal ileum mucosa 2. Total of 1 polyp removed from sigmoid colon. 3. Internal hemorrhoids Recommendations: - Follow path results. - Repeat colonoscopy in 7-10 years if polyp is an adenoma.
[2022-11-01 11:36] VITALS: BP 120/76; PULSE 75; RESP 18; TEMP 37; O2SAT 94
[2022-11-01 11:51] VITALS: BP 124/82; PULSE 76; RESP 20; TEMP 36.7; O2SAT 99
== END 2022-11-01 12:10 | disposition home or self-care (01) ==
PROVIDERS: PCP Internal Medicine; Visit Provider Internal Medicine
PROC: 0DJD8ZZ Inspection of Lower Intestinal Tract, Via Natural or Artificial Opening Endoscopic (ICD-10-PCS; CPT 45378; principal; 2022-11-01 10:40)
DX: Z12.11 Encounter for screening for malignant neoplasm of colon (principal); K63.5 Polyp of colon; K64.8 Other hemorrhoids; J30.2 Other seasonal allergic rhinitis; Z87.891 Personal history of nicotine dependence; Z91.040 Latex allergy status; E78.00 Pure hypercholesterolemia, unspecified; I72.0 Aneurysm of carotid artery; G47.33 Obstructive sleep apnea (adult) (pediatric); Z79.899 Other long term (current) drug therapy; Z98.890 Other specified postprocedural states
CPT/HCPCS: 45385; 88305; 93005

== ENCOUNTER → 2022-11-01 07:32 | Outpatient (BNV) | payer OTHER, SELFPAY | PROVIDERS: PCP Internal Medicine; Visit Provider Internal Medicine | DX: Z12.11 Encounter for screening for malignant neoplasm of colon (principal); D12.5 Benign neoplasm of sigmoid colon; K64.8 Other hemorrhoids | CPT/HCPCS: 45385 ==

== ENCOUNTER → 2022-11-01 09:40 | Outpatient (BNV) | payer OTHER, SELFPAY | PROVIDERS: PCP Internal Medicine; Visit Provider Internal Medicine Cardiovascular Disease | DX: I44.0 Atrioventricular block, first degree (principal) | CPT/HCPCS: 93010 ==

== ENCOUNTER 2022-11-07 10:27 | Outpatient (AMB) | payer OTHER, SELFPAY ==
[2022-11-07 10:44] VITALS: BP 128/72; PULSE 75; O2SAT 99; BMI 26.9
--- NOTE | 2022-11-07 10:44 | A.OFFPC_ITS ---
Vital Signs 11/07/22 10:44 Height 5 ft 2 in Weight 147 lb BMI 26.9 BP 128/72 Blood Pressure Location Lt brachial Position Sitting Pulse 75 Pulse Source Pulse Oximeter Pulse Oximetry (%) 99 Oxygen Delivery Method Room Air Intake Visit Reasons: Annual Exam/ ear infection Allergies latex Allergy (Unknown, Verified 11/07/22 10:45) unknown seasonal Allergy (Unknown, Uncoded 11/07/22 10:45) Unknown Medication List - Last Reconciled 11/07/22 by Canelo Sidhu MD acetaminophen 1,000 mg (2 x 500 mg) PO QID PRN ascorbic acid (vitamin C) mg PO cholecalciferol (vitamin D3) 25 mcg PO DAILY cyanocobalamin (vitamin B-12) 1,000 mcg PO DAILY fexofenadine 180 mg PO DAILY fluticasone propionate 50 mcg/actuation 2 sprays intranasal DAILY Tobacco use date assessed: 11/07/22 Dental Screening Dental Screen Date: 11/07/22 Did you have a dental visit in the last 12 months?: Yes Did you have a dental problem in the last 6 months where you did not have access to dental care?: No Was dental information given to patient?: Patient has dentist HPI Annual Exam/ ear infection HPI Details 61-year-old overweight female with hypercholesterolemia last seen in February 2022 coming in for physical exam. Colonoscopy is up-to-date mammograms up to date [facility] Medical History (Updated 11/07/22 @ 11:16 by Canelo Sidhu MD) Allergic rhinitis Carotid aneurysm, left Hypercholesterolemia Obstructive sleep apnea Sleep apnea Thoracic aortic ectasia Uterine fibroid Surgical History History of shoulder surgery History of tubal ligation Hx of colonoscopy S/P ROBERTO-BSO (total abdominal hysterectomy and bilateral salpingo-oophorectomy) Family History (Updated 11/07/22 @ 10:45 by Nataliya Linton CMA) Father Diabetes Hypertension Throat cancer Mother Diabetes Hypertension Stroke Sister History of ETOH abuse Kidney disease Social History (Updated 11/07/22 @ 11:11 by Canelo Sidhu MD) Housing: Apartment Alcohol intake: current Alcohol intake frequency: a few times a month Patient Tobacco Use Status: Former Tobacco user Quit Date: 20 yrs ago Tobacco use type: Cigarette Years Smoked: stopped 2010 e-Cigarette/Vaping Use: Never Used Second Hand Smoke Exposure: No service: No Current occupational status: employed Cognitive needs: No Hearing needs: No Vision needs: Yes Questionnaire PHQ-9 Over the last 2 weeks, how often have you been bothered by any of the following problems? 1. Little interest or pleasure in doing things: not at all 2. Feeling down, depressed, or hopeless: not at all 3. Trouble falling or staying asleep, or sleeping too much: not at all 4. Feeling tired or having little energy: not at all 5. Poor appetite or overeating: not at all 6. Feeling bad about yourself - or that you are a failure or have let yourself or your family down: not at all 7. Trouble concentrating on things, such as reading the newspaper or watching television: not at all 8. Moving or speaking so slowly that other people could have noticed. Or the opposite - being so fidgety or restless that you have been moving around a lot more than usual: not at all 9. Thoughts that you would be better off or of hurting yourself in some way: not at all Total score: 0 Depression Screening Interpretation: Negative Source: Developed by Drs. Elmer Lim, Laura Otto, Tavo Basurto and colleagues, with an educational radha from [employer]. Thrive Questionnaire Date Thrive assessed: 11/07/22 I am a: Patient What is your living situation today?: I have a steady place to live Within the past 12 months, did the food you bought not last and you didn't have the money to get more?: Never true Within the past 12 months, did you worry whether your food would run out before you got money to buy more?: Never true Do you have trouble paying for medicines?: No Do you have trouble getting transportation to medical appointments?: No Do you have trouble paying your heating and electricity bill?: No Do you have trouble taking care of your child, family member or friend?: No Do you have trouble with day-to-day activities such as bathing, preparing meals, shopping, managing finances, etc.?: No Are you currently unemployed and looking for a job?: No Are you interested in more education?: No Currently or been in a relationship where the following occur: no concerns reported AUDIT C Alcohol Use Questionnaire (AUDIT-C) 1. How often do you have a drink containing alcohol?: 2-3 times a week 2. How many drinks containing alcohol do you have on a typical day when you are drinking?: 1 or 2 3. How often do you have six or more drinks on one occasion?: Never Total Score: 3 MISHEL-7 AMB Questionnaire MISHEL-7 Date MISHEL - 7 assessed: 11/07/22 Feeling nervous, anxious, or on edge: 0 = Not at all Not being able to stop or control worryin = Not at all Worrying too much about different things: 0 = Not at all Trouble relaxin = Not at all Being so restless that it is hard to sit still: 0 = Not at all Becoming easily annoyed or irritable: 0 = Not at all Feeling afraid as if something awful might happen: 0 = Not at all Total MISHEL-7 score (0-4 normal; 5-9 mild; 10-14 moderate; 15-21 severe): 0 Source: Developed by Drs. Elmer Lim, Laura Otto, Tavo Basurto and colleagues, with an educational radha from [employer]. Review of Systems Const Denies poor appetite and Denies weakness Eyes Denies no additional complaints ENT Reports Normal hearing present Card Denies chest pain, Denies syncope, Denies rapid heart rate and Denies dyspnea Resp Denies cough and Denies dyspnea GI Denies change in stool character, Reports constipation, Denies diarrhea, Denies nausea and Denies vomiting Denies urinary frequency, Denies difficulty voiding and Denies dysuria Neuro Reports Normal hearing present, Denies confusion, Denies syncope and Denies weakness Psych Denies confusion Physical exam (Primary Care) Vital Signs: Last Vital Signs Pulse 75 11/07/22 10:44 BP 128/72 11/07/22 10:44 Pulse Ox 99 11/07/22 10:44 Oxygen Delivery Method Room Air 11/07/22 10:44 BMI result Body Mass Index 26.9 Tobacco/Smoking Status: Tobacco use Status Tobacco use date assessed 11/07/22 11/07/22 10:49 Patient Tobacco Use Status Former Tobacco user 11/07/22 10:49 Tobacco use type Cigarette 11/07/22 10:49 e-Cigarette/Vaping Use Never Used 11/07/22 10:49 PHQ-9: PHQ-9 Score PHQ-9: Total score 0 11/07/22 10:49 Depression Screening Interpretation: Negative Thrive Assessment: Date of Thrive Assessment Date Thrive assessed 11/07/22 11/07/22 10:49 Currently or been in a relationship where the following occur: no concerns reported Const General: alert and awake; No confusion Orientation/consciousness: No confusion HENMT Head: Yes normocephalic Ears: external ears normal and TM's normal bilaterally Face and sinus: Yes normal facial exam Mouth: moist mucous membranes Throat: Yes tonsils normal Eyes Conjunctivae: conjunctivae normal Pupils: Equal, round and reactive pupils present and Pupil accommodation reflex normal Direct Ophthalmoscopy: normal light reflex Neck Neck: No lymphadenopathy Thyroid: Thyroid normal Chest Chest palpation & inspection: normal inspection of the chest Resp Effort & Inspection: normal respiratory effort and no audible wheezes Auscultation: clear to auscultation bilaterally, no crackles, no wheezes and lung sounds not diminished Cardio Rate: regular rate Rhythm: regular rhythm Peripheral pulses: radial pulses present and dorsalis pedis present GI Palpation (GI): no masses Auscultation: normal bowel sounds and normoactive bowel sounds Rectal Exam - Female: deferred Skin General skin exam: no rashes or lesions noted Rashes: no rashes Neuro General: deep tendon reflexes 2+ bilaterally and No confusion Cranial nerves: Yes Equal, round and reactive pupils present, Yes Midline tongue present, Yes Normal hearing present and Yes Ability to bilaterally elevate shoulders present Cognition (Neuro): normal cognition Gait exam (Neuro): Normal gait present Motor exam (neuro): 5/5 motor strength present throughout Deep tendon reflexes (DTR's): Right brachioradialis reflex intensity grade: 2+, Left brachioradialis reflex intensity grade: 2+, Right patellar reflex intensity grade: 2+ and Left patellar reflex intensity grade: 2+ Extrem General: No edema Assessment and Plan Assessment & Plan (1) Annual physical exam: Code(s): Z00.00 - Encounter for general adult medical examination without abnormal findings (2) Overweight (BMI 25.0-29.9): Code(s): E66.3 - Overweight Plan: Diet and exercise (3) Hypercholesterolemia: Comment: no meds currently Code(s): E78.00 - Pure hypercholesterolemia, unspecified Plan: Avoid fried foods, chicken skin, eggs, butter margarine, pastries and meat. Be it pork or beef they have a lot of cholesterol LDL goal of less than 130 and triglyceride of less than 150 (4) Obstructive sleep apnea: Comment: March 2018 10 cm fullface mask, cannot tolerate Code(s): G47.33 - Obstructive sleep apnea (adult) (pediatric) (5) Mild anemia: Code(s): D64.9 - Anemia, unspecified Plan: Will continue to monitor (6) Carotid aneurysm, left: Code(s): I72.0 - Aneurysm of carotid artery Plan: CTA requested Orders: Orders CT angio head neck Today I72.0 - Aneurysm of carotid artery Vitamin B12 and Folate Today E78.00 - Pure hypercholesterolemia, unspecified Comprehensive Met. Panel Today E78.00 - Pure hypercholesterolemia, unspecified Lipid Panel Today E78.00 - Pure hypercholesterolemia, unspecified Free T4 (Free Thyroxine) Today E78.00 - Pure hypercholesterolemia, unspecified Thyroid Stimulating Hormone Today E78.00 - Pure hypercholesterolemia, unspecified Vitamin D 25-OH Total Today E78.00 - Pure hypercholesterolemia, unspecified Complete Blood Count Auto Diff Today E78.00 - Pure hypercholesterolemia, unspecified Ferritin Today D64.9 - Anemia, unspecified IRON PROFILE Today D64.9 - Anemia, unspecified Reticulocyte Count Today D64.9 - Anemia, unspecified Referrals Ear/Nose/Throat Referral J30.9 - Allergic rhinitis, unspecified Sleep Medicine Referral G47.33 - Obstructive sleep apnea (adult) (pediatric) Medications: Refilled fexofenadine 180 mg PO DAILY 90 tabs 3RF fluticasone propionate 50 mcg/actuation 2 sprays intranasal DAILY 16 grams 3RF J30.9 - Allergic rhinitis, unspecified cyclobenzaprine 5 mg PO TID PRN 30 tabs 0RF muscle spasm D64.9 - Anemia, unspecified Coding Level of Care Code Est Pt Prev Care 40-64y(28717) Diagnoses Annual physical exam Z00.00 Overweight (BMI 25.0-29.9) E66.3 Hypercholesterolemia E78.00 Obstructive sleep apnea G47.33 Mild anemia D64.9 Carotid aneurysm, left I72.0
== END 2022-11-07 11:41 | disposition home or self-care (01) ==
PROVIDERS: PCP Internal Medicine; Visit Provider Internal Medicine
DX: Z00.00 Encounter for general adult medical examination without abnormal findings (principal); E66.3 Overweight; E78.00 Pure hypercholesterolemia, unspecified; I72.0 Aneurysm of carotid artery; G47.33 Obstructive sleep apnea (adult) (pediatric); D64.9 Anemia, unspecified
CPT/HCPCS: 99396

== ENCOUNTER 2022-11-19 14:25 | Outpatient (AMB) | payer OTHER, SELFPAY ==
[2022-11-19 14:38] VITALS: BP 128/76; PULSE 68; BMI 27.1
--- NOTE | 2022-11-19 14:38 | MHC.OFFVIS ---
Intake Vital Signs 11/19/22 14:38 Height 5 ft 2 in Weight 148 lb 2.41 oz BMI 27.1 BP 128/76 Blood Pressure Location Lt brachial Position Sitting Pulse 68 Intake Visit Reasons: S/p colo-dee dee Intake Note: Shara presents in office as a est.patient for a post-op f/u for colo. pt got it done 11.01.22 PT CC: pt reports having constipation , sore, tender pt denies any other GI Issues. 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 Denies any issues with anesthesia in the past.? History of sleep apnea just recently unable to use her machine as she does not have supplies needed. Patient was encouraged to call sleep medicine to help her order the supplies. Patient was seen by them before. No history infectious diseases in the past or present.? Not on any anticoagulation therapy.? No family or personal history of colon cancer or polyps.? Patient denies melena, hematochezia, unintentional weight loss or ribbon like stools.? Discussed at length the pre-procedure,? prep, diet & medications as well as what to expect prior, during and after the procedure.?? Stressed the importance of good bowel prep. ?Recommended the use of Vaseline or Calmoseptine OTC & baby wipes with bowel movements to promote comfort.? ?Patient verbalizes understanding and agrees to plan of care.? She was given the opportunity to ask questions and all questions answered.? We will see her after the procedure.? Sleep apnea Patient was encouraged to call sleep medicine for supplies. Unable to use her CPAP machine due to not having supplies. Plan Medications New bisacodyl (Dulcolax (bisacodyl)) take 2 tabs at noon the day before your colonoscopy 10 mg (2 x 5 mg) PO ONCE 1 day 2 tabs 0RF Z12.11 polyethylene glycol 3350 (Miralax) As directed by gastroenterology department at [facility] 238 grams PO ONCE 238 grams 0RF Z12.11 COLONOSCOPY Findings: Mucosa: Normal to cecum and terminal ileum. Protruding lesions: 1 sessile polyp of size 4 mm in sigmoid colon. Cold snare polypectomy was performed. The polyp was completely removed and retrieved. Medium internal hemorrhoids without stigmata of recent bleeding. Impression: 1. Normal colon and terminal ileum mucosa 2. Total of 1 polyp removed from sigmoid?colon. 3. Internal hemorrhoids Recommendations: - Follow path results. - Repeat colonoscopy in 7-10 years if polyp is an adenoma. PATHOLOGY RESULTS Diagnosis Colon, sigmoid, polyp, biopsy:? Clinically polypoid colonic mucosa noted; negative for a hyperplastic or neoplastic process. TODAY'S VISIT: Patient is here today for follow-up and to discuss colonoscopy results. Patient denies any ill effects from the prep, anesthesia or procedure itself. However patient does report in the last few days she has been little bit constipated. Patient states that she used to take MiraLax, however her in sure and did not pay for it. Patient states that she was doing well when she was taking it. Patient reports left lower quadrant pain when she is constipated. Sometimes no bowel movements for couple days. Patient denies melena, hematochezia, unintentional weight loss or ribbon like stools. Patient denies any dyspepsia, dysphagia or odynophagia. Patient colonoscopy results discussed with patient. [facility] Medical History Allergic rhinitis Carotid aneurysm, left Hypercholesterolemia Obstructive sleep apnea Sleep apnea Thoracic aortic ectasia Uterine fibroid Surgical History History of shoulder surgery History of tubal ligation Hx of colonoscopy S/P ROBERTO-BSO (total abdominal hysterectomy and bilateral salpingo-oophorectomy) Family History Father Diabetes Hypertension Throat cancer Mother Diabetes Hypertension Stroke Sister History of ETOH abuse Kidney disease Social History Housing: Apartment Alcohol intake: current Alcohol intake frequency: a few times a month Patient Tobacco Use Status: Former Tobacco user Quit Date: 20 yrs ago Tobacco use type: Cigarette Years Smoked: stopped 2010 e-Cigarette/Vaping Use: Never Used Second Hand Smoke Exposure: No service: No Current occupational status: employed Cognitive needs: No Hearing needs: No Vision needs: Yes Review of Systems Const Denies weight gain and Denies weight loss ENT Reports no additional complaints, Denies dysphagia and Denies odynophagia Card Reports no additional complaints Resp Reports no additional complaints GI Reports abdominal pain (LLQ), Denies belching, Denies melena, Reports bloating, Reports constipation, Denies dysphagia, Denies excessive flatus, Denies dyspepsia, Denies heartburn, Denies diarrhea, Denies loose stools, Denies nausea, Denies odynophagia and Denies vomiting Reports no additional complaints Musc Reports no additional complaints Neuro Reports no additional complaints Psych Reports no additional complaints Endo Reports no additional complaints Physical Exam Vital Signs: Last Vital Signs Pulse 68 11/19/22 14:38 BP 128/76 11/19/22 14:38 BMI result Body Mass Index 27.1 Const General: healthy appearing, no acute distress and well developed Nutritional Appearance: well nourished Orientation/consciousness: patient oriented x3 HEENT Head: Yes normal to inspection, Yes normocephalic and Yes atraumatic Face and sinus: Yes normal facial exam Mouth: Normal oral and palatal mucosa present Throat: Yes posterior oropharynx normal, Yes tonsils normal and Yes uvula midline Eyes General: appearance normal, both eyes and all related structures Neck Neck: Yes normal visual inspection, Yes full ROM and Yes trachea midline Thyroid: Thyroid normal Resp Effort & Inspection: normal respiratory effort, able to speak in complete sentences, no tracheal deviation and symmetric chest movement Auscultation: clear to auscultation bilaterally Cardio Rate: regular rate Heart sounds: S1 normal heart sound present and S2 normal heart sound present GI Inspection: Yes normal to inspection and No distended Palpation (GI): Soft to palpation, not firm, nontender and No hepatosplenomegaly present Auscultation: normal bowel sounds General: Yes no CVA tenderness Back/Spine/Pelvis Back: no CVA tenderness Skin General skin exam: elasticity normal, turgor normal and dry skin Neuro General: patient oriented x3 Psych Appearance: grossly normal Mental Status: mental status grossly normal Speech and movement: Normal speech and movement present Affect: normal affect Assessment & Plan Assessment & Plan (1) Constipation: Code(s): K59.00 - Constipation, unspecified Qualifiers: Constipation type: slow transit constipation Qualified Code(s): K59.01 - Slow transit constipation Plan: Patient can continue taking MiraLax. Patient was in courage to increase fluid intake and activity to promote better bowel motility. (2) Status post colonoscopy: Code(s): Z98.890 - Other specified postprocedural states Plan: Polyp showed colonic mucosa. Colonoscopy in 10 years, sooner if clinically necessary. Patient will follow-up with our office on as needed basis. She is agreeable to this plan and verbalizes understanding of instructions. She was given the opportunity to ask questions and all questions answered. Thank you for allowing me to participate in her care Medications: New polyethylene glycol 3350 (Miralax) 17 grams PO DAILY 510 grams 3RF Coding Level of Care Code Est Pt Level 3 (42939) Diagnoses Constipation K59.01 Constipation type: slow transit constipation Status post colonoscopy Z98.890 Time Spent (min) 25 Comment 15 minutes spent with patient and additional 10 minutes spent reviewing her records
== END 2022-11-19 16:22 | disposition home or self-care (01) ==
PROVIDERS: Visit Provider Nurse Practitioner Family
DX: K59.01 Slow transit constipation (principal); Z98.890 Other specified postprocedural states
CPT/HCPCS: 99213

== ENCOUNTER → 2022-11-19 14:25 | Outpatient (BNVA) | payer OTHER, SELFPAY | PROVIDERS: Visit Provider Nurse Practitioner Family ==

== ENCOUNTER 2022-12-05 10:18 | Outpatient (REF) | payer OTHER, SELFPAY ==
[2022-12-05 10:39] LABS: MANUAL DIFF FLAG NO
[2022-12-05 11:08] LABS: Basophils Percent Auto 0.2 % (0-2); Hematocrit 39.4 % (37.0-47.0); Hemoglobin 12.4 g/dl (12.0-16.0); Imm Gran Abs Auto 0.01 X10*3/uL (0.00-0.03); Imm Gran Pct Auto 0.2 % (0.0-0.4); Immature Retic Fraction 10.1 % (3.0-15.9); Lymphocytes Absolute Auto 2.5 X10*3/uL (1.2-4.9); Mean Corpuscular HGB Conc 31.5 g/dl (31.0-35.0); Mean Corpuscular Hemoglobin 26.1 pg (27.0-33.0); Mean Corpuscular Volume 82.9 fL (80.0-98.0); Monocytes Absolute Auto 0.5 X10*3/uL (0.1-1.2); Monocytes Percent Auto 8.9 % (2-11); Neutrophils Absolute Auto 2.2 x10*3/uL (2.0-8.3); Neutrophils Percent Auto 41.7 % (45-73); Platelet Count 272 X10*3/uL (160-400); Red Blood Count 4.75 X10*6/uL (4.20-5.50); Red Cell Distribution Width 13.6 % (11.0-16.0); Retic HGB Equivalent 31.2 pg (30.0-35.0); Reticulocyte Percent 1.4 % (0.5-1.8); Reticulocytes Absolute 0.067 X10*6/uL (0.026-0.095); White Blood Count 5.2 X10*3/uL (4.8-10.8)
[2022-12-05 12:18] LABS: Alanine Aminotransferase 26 U/L (0-31); Albumin Level 4.6 g/dL (3.5-5.0); Alkaline Phosphatase 128 U/L (39-117); Anion Gap 13 (12-20); Aspartate Amino Transferase 24 U/L (5-31); Bilirubin Total 0.6 mg/dL (0.0-1.0); Blood Urea Nitrogen 19 mg/dL (9-16); Calcium 10.2 mg/dL (8.4-10.2); Carbon Dioxide 27 mmol/L (22-29); Chloride 105 mmol/L (96-108); Cholesterol 207 mg/dL; Estimated Glomerular Filt Rate 58; Glucose Random 84 mg/dL (60-115); HDL Cholesterol 79 mg/dL; Iron 79 mcg/dL (30-160); LDL Cholesterol Calculated 112 mg/dl; Percent Iron Saturation 26 % (15-50); Potassium 4.6 mmol/L (3.3-5.1); Sodium 140 mmol/L (135-145); Total Iron Binding Capacity 305 mcg/dL (228-428); Total Protein 8.1 g/dL (6.5-8.0); Triglycerides 82 mg/dL; Unsaturated Iron Binding 226 ug/dL
[2022-12-05 12:19] LABS: Folate 14.6 ng/mL (> or = 4.0); Vitamin B12 912 pg/mL (200-900)
[2022-12-05 12:22] LABS: Ferritin 149 ng/mL (10-250); Free T4 (Free Thyroxine) 0.89 ng/dL (0.71-1.85); Thyroid Stimulating Hormone 1.12 uIU/mL (0.32-4.0); Vitamin D 25-OH Total 40.5 ng/mL (>30)
== END 2022-12-05 10:19 | disposition home or self-care (01) ==
LOC: HO.LAB 10:18
PROVIDERS: PCP Internal Medicine; Visit Provider Internal Medicine
DX: E78.00 Pure hypercholesterolemia, unspecified (principal); D64.9 Anemia, unspecified
CPT/HCPCS: 36415; 80053; 80061; 82306; 82607; 82728; 82746; 83540; 84439; 84443; 85025; 85045

== ENCOUNTER 2022-12-21 07:44 | Outpatient (REF) | payer OTHER, SELFPAY ==
--- NOTE | ~2022-12-21 | CT_ITS ---
EXAMINATION: CT ANGIOGRAM HEAD CT ANGIOGRAM NECK CLINICAL INFORMATION: Reason for Exam I72.0 - Aneurysm of carotid artery COMPARISON: CT head without contrast 04/06/2022, CTA head and neck 11/16/2019 TECHNIQUE: Initial noncontrast junior legal secretary imaging of the head and neck was performed. Noncontrast head CT was also performed. Test bolus sequences followed by intravenous administration 70 mL of Omnipaque 350. Helical imaging was performed in the axial plane from the aortic arch to the skull vertex. Delayed postcontrast imaging of the head was also performed. The data was processed at the soil technologist's workstation for generation of MIP sequences. Angled MIPs and volume rendered reformatted images were also generated at an offline 3D workstation. Stenoses are assessed in accordance with NASCET criteria unless otherwise indicated. DLP: 2246 mGy-cm This CT examination was performed using dose optimization techniques as appropriate, variously including the following: *Automated exposure control. *Adjustment of mA and/or kV according to patient size (this includes techniques or standardized protocols for targeted exams where dose is matched to indication/reason for exam; i.e. extremities or head). *Use of iterative reconstruction technique. FINDINGS: CT Head: There is no evidence of acute intracranial hemorrhage or edematous territorial infarction. There is no abnormal attenuation within the brain parenchyma. Holbrook-white matter differentiation is preserved. The ventricles are normal in size and configuration. No evidence for obstructive hydrocephalus. No abnormal mass effect or midline shift. No extra-axial fluid collections. No pathologic intra-axial enhancement or regional oligemia. No acute soft tissue or osseous abnormalities. The mastoid air cells and paranasal sinuses are clear. CT Neck: There is heterogeneous enhancement of the thyroid gland with suggestion of a hypoenhancing nodule in the left lobe measuring up to 2.3 cm. The remaining cervical soft tissues are within normal limits. Mild degenerative changes of the cervical spine. CT Upper Chest: There are some dependent groundglass opacities in the lung apices. The upper mediastinum is within normal limits. Neck CTA: Aortic Arch: Normal contour and caliber. Classic 3 vessel branching pattern of the aortic arch. Great Vessel Origins: No significant stenosis of the branch origins. Right Common Carotid Artery: No focal stenosis or occlusion. Cervical Right Internal Carotid Artery: Normal opacification without focal stenosis or occlusion. Left Common Carotid Artery: No focal stenosis or occlusion. Cervical Left Internal Carotid Artery: Normal opacification without focal stenosis or occlusion. Cervical Right Vertebral Artery: No focal stenosis or occlusion. Cervical Left Vertebral Artery: No focal stenosis or occlusion. Brain CTA: Intracranial Internal Carotid Arteries: No focal stenosis or occlusion. Stable size and morphology of a 5 mm laterally directed aneurysm involving the cavernous left ICA. Stable 1 mm posteriorly projecting aneurysm versus infundibula involving the right carotid terminus (series 9 image 170). Right Anterior Cerebral Artery: Normal A1 segment. Normal opacification of the distal MCKINLEY segments. Left Anterior Cerebral Artery: Normal A1 segment. Normal opacification of the distal MCKINLEY segments. Anterior Communicating Artery: Normal. Right Middle Cerebral Artery: Normal M1 segment of the MCA without focal stenosis or occlusion. Normal arborization of the distal segments. Left Middle Cerebral Artery: Normal M1 segment of the MCA without focal stenosis or occlusion. Normal arborization of the distal segments. Right Vertebral Artery: Normal V4 segment. Left Vertebral Artery: Normal V4 segment. Basilar Artery: Normal without focal stenosis or occlusion. Normal appearance of the proximal superior cerebellar arteries. Right Posterior Cerebral Artery: Normal P1 segment. Normal opacification of the distal TECH ED/WOODSHOP TEACHER segments. Left Posterior Cerebral Artery: Normal P1 segment. Normal opacification of the distal TECH ED/WOODSHOP TEACHER segments. Normal opacification of the superior sagittal, straight, transverse, and sigmoid sinuses. CT/CT angio head neck IMPRESSION: 1. No acute intracranial abnormality including hemorrhage, mass effect, hydrocephalus, or acute territorial edematous infarction. 2. Stable 5 mm aneurysm involving the cavernous left ICA and stable 1 mm aneurysm versus infundibula involving the right carotid terminus. Please note that CTA of the head is sufficient to reevaluate these aneurysms on future follow-up imaging. 3. No arterial high-grade stenosis or large vessel occlusion in the head or neck. 4. Heterogeneous enhancement of the thyroid gland with suggestion of a hypoenhancing nodule in the left lobe measuring up to 2.3 cm. Recommend further evaluation with thyroid ultrasound.
[2022-12-21] MEDS: iohexoL 350 MG/ML 100 ML INFUS..BTL IV (09:12)
== END 2022-12-21 07:45 | disposition home or self-care (01) ==
LOC: HO.CT 07:44
PROVIDERS: PCP Internal Medicine; Visit Provider Internal Medicine
DX: I72.0 Aneurysm of carotid artery (principal)
CPT/HCPCS: 70496; 70498; Q9967

== ENCOUNTER 2023-01-14 14:36 | Outpatient (REF) | payer OTHER, SELFPAY ==
--- NOTE | ~2023-01-14 | US_ITS ---
EXAMINATION: US THYROID CLINICAL INFORMATION: Nontoxic single thyroid nodule. COMPARISON: CT angiogram head/neck 12/21/2022. TECHNIQUE: Linear transducer cordova-scale and color Doppler examination with attention to the region of the thyroid. FINDINGS: SIZE: Measurements of the thyroid lobes and nodules are given in sagittal, anteroposterior and transverse dimensions respectively. Right Thyroid Lobe: 4.6 x 1.5 x 1.5 cm, volume 5.4 mL. Parenchyma: The gland echotexture is heterogeneous. Thyroid vascularity is increased. Left Thyroid Lobe: 3.9 x 1.4 x 1.5 cm, volume 4.3 mL. Parenchyma: The gland echotexture is heterogeneous. Thyroid vascularity is increased. Isthmus: 0.3 cm in maximum AP dimension. Estimated total number of nodules greater than or equal to 1 cm: 3. Professor Of Kinesiology nodules are described as follows: 1. Location: Right superior. Size: 2.6 x 1.7 x 1.1 cm, volume 2.40 mL. Nodule characteristics: Composition: Solid (2). Echogenicity: Hypoechoic (2). Shape: Taller than wide (3). Margins: Lobulated (2). Echogenic Foci: None (0). ACR TI-RADS total points: 9 ACR TI-RADS category: 5 2. Location: Right inferior. Size: 1.2 x 0.6 x 0.8 cm, volume 0.29 mL. Nodule characteristics: Composition: Solid (2). Echogenicity: Hypoechoic (2). Shape: Not taller than wide (0). Margins: Smooth (0). Echogenic Foci: None (0). ACR TI-RADS total points: 4 ACR TI-RADS category: 4 3. Location: Left mid/superior. Size: 3.5 x 1.0 x 2.6 cm, volume 4.66 mL. Nodule characteristics: Composition: Solid (2). Echogenicity: Hypoechoic (2). Shape: Not taller than wide (0). Margins: Lobulated (2). Echogenic Foci: None (0). ACR TI-RADS total points: 6 ACR TI-RADS category: 4 NODES: Multiple bilateral lymph nodes are noted the largest on the right side measuring 0.4 cm in short axis with loss of height hilum. The largest on the left side measuring 0.6 cm in short axis with loss of fatty hilum. US/US thyroid IMPRESSION: 1. Nodule in the superior portion of the right thyroid lobe measures up to 2.6 cm with a TI-RADS Category 5. Nodule is amenable to biopsy if thyroid performed. 2. Nodule in the lower pole of the right thyroid lobe measures up to 1.2 cm with a TI-RADS Category 4. Follow-up as below. 3. Nodule in the mid/superior portion of the left thyroid lobe measures up to 3.5 cm with a TI-RADS Category 4. Nodule is amenable to biopsy if not already performed. 4. Bilateral thyroid lobes demonstrate heterogeneous echotexture with increased vascularity. 5. Multiple bilateral lymph nodes are noted the largest on the right side measuring 0.4 cm in short axis with loss of height hilum. The largest on the left side measuring 0.6 cm in short axis with loss of fatty hilum. ACR TI-RADS RECOMMENDATION REFERENCE: Ultrasound-guided fine-needle aspiration, followup ultrasound, no further follow up. * TR4 (4-6 points): FNA if more than or equal to 1.5 cm in maximum dimension, followup ultrasound in 1, 2, 3 and 5 years if 1 to 1.4 cm in maximum dimension. * TR5 (more than or equal to 7 points): FNA if more than or equal to 1 cm in maximum dimension, followup ultrasound every year for 5 years if 0.5 to 0.9 cm in maximum dimension. * TR4 or TR5 nodules that are below the size threshold for followup receive no follow up.
== END 2023-01-14 14:37 | disposition home or self-care (01) ==
LOC: HO.US 14:36
PROVIDERS: PCP Internal Medicine; Visit Provider Internal Medicine
DX: E04.1 Nontoxic single thyroid nodule (principal)
CPT/HCPCS: 76536

== ENCOUNTER 2023-01-29 12:28 | Outpatient (AMB) | payer OTHER, SELFPAY ==
--- NOTE | 2023-01-29 12:57 | A.OFFVIS_ITS ---
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 Patient states I own a machine I haven't used it in two years. Allergies latex Allergy (Unknown, Verified 02/18/23 12:56) unknown seasonal Allergy (Unknown, Uncoded 02/18/23 12:56) Unknown HPI HPI Comments History of Present Illness Details 62 y/o female patient presents for new i n-person visit to manage DARY on CPAP. Pt was diagnosed with DARY in 2017 and started CPAP therapy. However, she has not have supplies since 2018 and stopped using CPAP. She reports snoring, gasping arousals, non refreshing sleep and daytime sleepiness. She gained at least 20 lb since the last sleep study. Sleep questionnaire: Have you ever been diagnosed with a sleep disorder? Yes, DARY. Have you ever had a sleep study in the past? Yes, home sleep and in lab sleep. Have you ever been treated for a sleep disorder? Yes, CPAP. Do you take medications for a sleep disorder? No. Do you snore? Yes. Do you wake up gasping at night? Yes. Do you have episodes of apneas? Yes. If yes, are they witnessed? Yes. Do you have episodes of nocturnal chest pain or dyspnea? Yes, sometimes. Do you have difficulty initiating sleep? No. Do you have difficulty maintaining sleep? Yes, wakes up a lot. Do you wake up tired? Yes. Do you have headaches upon awakening? Yes, sometimes. Do you wake up with dry mouth or throat? Yes. Do you have GERD? Yes. Do you have nocturia? Yes. Do you have nocturnal leg cramps? Yes. Do you have symptoms of restless legs? No. Do you act out your dreams? Yes, sometimes kicking. Sleep hygiene questionnaire: What is your usual sleep routine? Usual bedtime is at 10:30 am; Usual wake up time is at 2 pm. Do you take naps? 6 pm to 10 pm Is your sleep environment cool, dark, and quiet? Yes. Do you exercise? Walking. Do you take caffeine or other stimulants? Coffee. Do you use electronics in bed? Watching TV. What is your work schedule? 11 pm to 9 am. Hypersomnolence questionnaire: Do you have daytime tiredness or fatigue? Yes. Do you easily fall asleep when inactive? Yes, sometimes. Have you ever had episodes of sudden weakness? No. Have you ever had episodes of sudden weakness associated with strong emotions? No. PFS Medical History (Updated 03/04/23 @ 12:54 by Prasanna Mercado CNP) Sleep apnea Uterine fibroid Hypercholesterolemia Allergic rhinitis Carotid aneurysm, left Thoracic aortic ectasia Obstructive sleep apnea Surgical History Hx of colonoscopy S/P ROBERTO-BSO (total abdominal hysterectomy and bilateral salpingo-oophorectomy) History of shoulder surgery History of tubal ligation Family History Father Diabetes Hypertension Throat cancer Mother Diabetes Hypertension Stroke Sister History of ETOH abuse Kidney disease Social History Housing: Apartment Alcohol intake: current Alcohol intake frequency: a few times a month Patient Tobacco Use Status: Former Tobacco user Quit Date: 20 yrs ago Tobacco use type: Cigarette Years Smoked: stopped 2010 e-Cigarette/Vaping Use: Never Used Second Hand Smoke Exposure: No service: No Current occupational status: employed Cognitive needs: No Hearing needs: No Vision needs: Yes Review of Systems Const All systems reviewed & are unremarkable except as noted in HPI and below ENT Reports Normal hearing present Neuro Reports Normal hearing present Physical Exam Vital Signs: Last Vital Signs Pulse 54 01/29/23 12:59 BP 130/82 01/29/23 12:59 Pulse Ox 100 01/29/23 12:59 Oxygen Delivery Method Room Air 01/29/23 12:59 BMI result Body Mass Index 27.2 Const General: cooperative Nutritional Appearance: overweight Orientation/consciousness: patient oriented x3 Neck Neck: Yes full ROM and Yes supple Resp Effort & Inspection: normal respiratory effort and able to speak in complete sentences Neuro General: patient oriented x3 and gait normal Cranial nerves: Yes Bilaterally intact EOM present, Yes Normal facial strength present, Yes Midline tongue present, Yes Symmetric palate elevation present, Yes Normal hearing present, Yes Ability to bilaterally rotate head present and Yes Ability to bilaterally elevate shoulders present Cognition (Neuro): normal cognition Gait exam (Neuro): Normal gait present Motor exam (neuro): 5/5 motor strength present throughout, Pronator motor function not present and no tremor noted Psych Appearance: grossly normal Mental Status: mental status grossly normal Speech and movement: Normal speech and movement present Affect: normal affect Attitude: cooperative Assessment & Plan Assessment & Plan (1) Obstructive sleep apnea: Comment: March 2018 10 cm. Code(s): G47.33 - Obstructive sleep apnea (adult) (pediatric) Plan Will consider to have a repeat sleep study. New CPAP supply order prescription given to patient. Coding Level of Care Code New Pt Level 3 (90210) Diagnoses Obstructive sleep apnea G47.33
[2023-01-29 12:59] VITALS: BP 130/82; PULSE 54; O2SAT 100; BMI 27.2
== END 2023-01-29 13:39 | disposition home or self-care (01) ==
PROVIDERS: PCP Internal Medicine; Visit Provider Nurse Practitioner Family
DX: G47.33 Obstructive sleep apnea (adult) (pediatric) (principal)
CPT/HCPCS: 99203

== ENCOUNTER → 2023-01-29 12:28 | Outpatient (BNVA) | payer OTHER, SELFPAY | PROVIDERS: PCP Internal Medicine; Visit Provider Nurse Practitioner Family ==

== ENCOUNTER 2023-02-18 12:37 | Outpatient (AMB) | payer OTHER, SELFPAY ==
--- NOTE | 2023-02-18 12:52 | A.OFFPC_ITS ---
Vital Signs 02/18/23 12:53 Height 5 ft 2 in Weight 150 lb 8 oz BMI 27.5 BP 132/70 Blood Pressure Location Lt brachial Position Sitting Pulse 56 Pulse Source Pulse Oximeter Pulse Oximetry (%) 100 Oxygen Delivery Method Room Air Intake Visit Reasons: carotid aneuryms, Media Relations Specialist Required: No Allergies latex Allergy (Unknown, Verified 02/18/23 12:56) unknown seasonal Allergy (Unknown, Uncoded 02/18/23 12:56) Unknown Tobacco use date assessed: 02/18/23 HPI carotid aneuryms, HPI Details 62-year-old overweight female with hyper cholesterolemia mild anemia left carotid aneurysm with obstructive sleep apnea coming in for follow-up. Patient was last seen in October 2022.. Sees neurology for repeat sleep study. December 2022 had ultrasound of the thyroid showing 2.6 cm right thyroid nodule another right thyroid nodule 1.2 cm, left thyroid nodule 3.[address] aNo acute intracranial abnormality including hemorrhage, mass effect, hydrocephalus, or acute territorial edematous infarction. 2. Stable 5 mm aneurysm involving the c avernous left ICA and stable 1 mm aneurysm versus infundibula involving the right carotid terminus. Please note that CTA of the head is sufficient to reevaluate these aneurysms on future follow-up imaging. 3. No arterial high-grade stenosis or l arge vessel occlusion in the head or neck. 4. Heterogeneous enhancement of the thy roid gland with suggestion of a hypoenhancing nodule in the left lobe measuring up to 2.3 cm. Recommend further evaluation with thyroid ultrasound. Patient did follow-up with Gastroenterology with normal: In ileum had a polyp advised repeated 7-10 years of colonoscopy Allergy shots now [facility] Medical History (Updated 01/15/23 @ 18:02 by Canelo Sidhu MD) Sleep apnea Uterine fibroid Hypercholesterolemia Allergic rhinitis Carotid aneurysm, left Thoracic aortic ectasia Obstructive sleep apnea Surgical History Hx of colonoscopy S/P ROBERTO-BSO (total abdominal hysterectomy and bilateral salpingo-oophorectomy) History of shoulder surgery History of tubal ligation Family History Father Diabetes Hypertension Throat cancer Mother Diabetes Hypertension Stroke Sister History of ETOH abuse Kidney disease Social History Housing: Apartment Alcohol intake: current Alcohol intake frequency: a few times a month Patient Tobacco Use Status: Former Tobacco user Quit Date: 20 yrs ago Tobacco use type: Cigarette Years Smoked: stopped 2010 e-Cigarette/Vaping Use: Never Used Second Hand Smoke Exposure: No service: No Current occupational status: employed Cognitive needs: No Hearing needs: No Vision needs: Yes Questionnaire Thrive Questionnaire Date Thrive assessed: 11/07/22 AUDIT C Alcohol Use Questionnaire (AUDIT-C) 1. How often do you have a drink containing alcohol?: 2-3 times a week 2. How many drinks containing alcohol do you have on a typical day when you are drinking?: 1 or 2 3. How often do you have six or more drinks on one occasion?: Never Total Score: 3 MISHEL-7 AMB Questionnaire MISHEL-7 Date MISHEL - 7 assessed: 11/07/22 Source: Developed by Drs. Elmer Lim, Laura Otto, Tavo Basurto and colleagues, with an educational radha from [employer]. Physical exam (Primary Care) Vital Signs: Last Vital Signs Pulse 56 02/18/23 12:53 BP 132/70 02/18/23 12:53 Pulse Ox 100 02/18/23 12:53 Oxygen Delivery Method Room Air 02/18/23 12:53 BMI result Body Mass Index 27.5 Tobacco/Smoking Status: Tobacco use Status Tobacco use date assessed 02/18/23 02/18/23 12:53 Patient Tobacco Use Status Former Tobacco user 02/18/23 12:53 Tobacco use type Cigarette 02/18/23 12:53 e-Cigarette/Vaping Use Never Used 02/18/23 12:53 Thrive Assessment: Date of Thrive Assessment Date Thrive assessed 11/07/22 02/18/23 12:53 Const General: alert; No acute distress Eyes Conjunctivae: conjunctivae normal Resp Auscultation: clear to auscultation bilaterally Cardio Rate: regular rate Rhythm: regular rhythm GI Inspection: Yes normal to inspection Extrem General: Yes normal to inspection and No edema Assessment and Plan Assessment & Plan (1) Thyroid nodule: Comment: December 2022Nodule in the superior portion of the right thyroid lobe measures up to 2.6 cm with a TI-RADS Category 5. Nodule is amenable to biopsy if thyroid performed. 2. Nodule in the lower pole of the right thyroid lobe measures up to 1.2 cm with a TI-RADS Category 4. Follow-up as below. 3. Nodule in the mid/superior portion of the left thyroid lobe measures up to 3.5 cm with a TI-RADS Category 4. Nodule is amenable to biopsy if not already performed. 4. Bilateral thyroid lobes demonstrate heterogeneous echotexture with increased vascularity. 5. Multiple bilateral lymph nodes are noted the largest on the right side measuring 0.4 cm in short axis with loss of height hilum. The largest on the left side measuring 0.6 cm in short axis with loss of fatty hilum. Code(s): E04.1 - Nontoxic single thyroid nodule Plan: Patient has been referred to Endocrinology [facility] (2) Carotid aneurysm, left: Comment: December 21 2022Stable 5 mm aneurysm involving the cavernous left ICA and stable 1 mm aneurysm versus infundibula involving the right carotid terminus. Please note that CTA of the head is sufficient to reevaluate these aneurysms on future follow-up imaging. 3. No arterial high-grade stenosis or large vessel occlusion in the head or neck. 4. Heterogeneous enhancement of the thyroid gland with suggestion of a hypoenhancing nodule in the left lobe measuring up to 2.3 cm. Recommend further evaluation with thyroid ultrasound. Code(s): I72.0 - Aneurysm of carotid artery Plan: Stable on December 2022 CTA (3) Obstructive sleep apnea: Comment: March 2018 10 cm fullface mask, cannot tolerate Code(s): G47.33 - Obstructive sleep apnea (adult) (pediatric) Plan: Patient has seen Neurology and will repeat sleep study- Patient did find the machine . will get in touch with the neurology (4) Overweight (BMI 25.0-29.9): Code(s): E66.3 - Overweight Plan: Diet and exercise Coding Level of Care Code Est Pt Level 4 (73683) Diagnoses Thyroid nodule E04.1 Carotid aneurysm, left I72.0 Obstructive sleep apnea G47.33 Overweight (BMI 25.0-29.9) E66.3
[2023-02-18 12:53] VITALS: BP 132/70; PULSE 56; O2SAT 100; BMI 27.5
== END 2023-02-18 13:48 | disposition home or self-care (01) ==
PROVIDERS: PCP Internal Medicine; Visit Provider Internal Medicine
DX: E04.1 Nontoxic single thyroid nodule (principal); I72.0 Aneurysm of carotid artery; G47.33 Obstructive sleep apnea (adult) (pediatric); E66.3 Overweight
CPT/HCPCS: 99214

== ENCOUNTER 2023-05-02 10:21 | Outpatient (AMB) | payer OTHER, SELFPAY ==
--- NOTE | 2023-05-02 10:46 | MHC.OFFVIS ---
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 No complaints. Last Pap/HPV was many years ago, the patient is status post hysterectomy for benign disease Last Mammogram was BI-RADS 1 in 07/12 Last Colonoscopy was in 11/11 [facility] Medical History Sleep apnea Uterine fibroid Hypercholesterolemia Allergic rhinitis Carotid aneurysm, left Thoracic aortic ectasia Obstructive sleep apnea Surgical History Hx of colonoscopy S/P ROBERTO-BSO (total abdominal hysterectomy and bilateral salpingo-oophorectomy) History of shoulder surgery History of tubal ligation Family History Father Diabetes Hypertension Throat cancer Mother Diabetes Hypertension Stroke Sister History of ETOH abuse Kidney disease Social History Housing: Apartment Alcohol intake: current Alcohol intake frequency: a few times a month Patient Tobacco Use Status: Former Tobacco user Quit Date: 20 yrs ago Tobacco use type: Cigarette Years Smoked: stopped 2010 e-Cigarette/Vaping Use: Never Used Second Hand Smoke Exposure: No service: No Current occupational status: employed 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 Sexually active: Yes Sexual orientation: Straight/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 Gender identity: Female Cognitive needs: No Hearing needs: No Vision needs: Yes Female Reproductive History Menstrual Menopause type: surgical Total pregnancies: 3 Full term: 1 Number of Living Children: 1 Ab spontaneous: 1 Date of last pap smear: 01/29/13 Date of Mammogram: 07/19/22 Review of Systems Const All systems reviewed & are unremarkable except as noted in HPI and below Card Reports as per HPI and Reports no additional complaints Resp Reports as per HPI and Reports no additional complaints GI Reports as per HPI and Reports no additional complaints Reports as per HPI Physical Exam Vital Signs: BMI result Body Mass Index 27.4 Const General: cooperative, healthy appearing and comfortable General: Yes bladder normal to palpation External Female Exam: No lesion Speculum Exam - Vagina: normal appearance of the vagina, normal vaginal discharge and not erythematous Speculum Exam - Cervix: Cervix absent Bimanual exam- vagina & uterus: bladder normal to palpation and uterus absent Bimanual Exam- Adnexa, other: Other (No masses detected) Assessment & Plan Assessment & Plan (1) Well woman exam: Code(s): Z01.419 - Encounter for gynecological examination (general) (routine) without abnormal findings Plan: Co testing not indicated. Counseled the patient about the recommended dietary allowance of 1200 mg of Calcium & 600 IU of vitamin D. Mammogram ordered. The patient was instructed to perform monthly self-breast exams and schedule annual exam in a year. All questions answered and the patient verbalized understanding. Orders: Orders MM tomosynthesis screening BI Today Z12.31 - Encounter for screening mammogram for malignant neoplasm of breast Coding Level of Care Code Est Pt Prev Care 40-64y(79036) Diagnoses Well woman exam Z01.419
[2023-05-02 10:47] VITALS: BP 110/62; BMI 27.4
== END 2023-05-02 11:10 | disposition home or self-care (01) ==
LOC: HO.HWS 10:21
PROVIDERS: PCP Internal Medicine; Visit Provider Obstetrics & Gynecology
DX: Z01.419 Encounter for gynecological examination (general) (routine) without abnormal findings (principal)
CPT/HCPCS: 99396

== ENCOUNTER → 2023-05-02 10:21 | Outpatient (BNVA) | payer OTHER, SELFPAY | PROVIDERS: PCP Internal Medicine; Visit Provider Obstetrics & Gynecology ==

== ENCOUNTER 2023-05-31 11:25 | Outpatient (AMB) | payer OTHER, SELFPAY ==
--- NOTE | 2023-05-31 11:43 | MHC.PC.OV ---
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 Required: No Accompanied by: Self / Same As Patient Allergies latex Allergy (Unknown, Verified 05/31/23 11:54) unknown seasonal Allergy (Unknown, Uncoded 05/31/23 11:54) Unknown Medication List - Last Reconciled 05/31/23 by Canelo Sidhu MD acetaminophen 1,000 mg (2 x 500 mg) PO QID PRN ascorbic acid (vitamin C) mg PO cholecalciferol (vitamin D3) 25 mcg PO DAILY cyanocobalamin (vitamin B-12) 1,000 mcg PO DAILY cyclobenzaprine 5 mg PO TID PRN diphenhydramine HCl (Banophen) 50 mg PO Q4-6H PRN fexofenadine 180 mg PO DAILY fluticasone propionate 50 mcg/actuation 2 sprays intranasal DAILY polyethylene glycol 3350 (Miralax) 17 grams PO DAILY Tobacco use date assessed: 05/31/23 Dental Screening Dental Screen Date: 05/31/23 Did you have a dental visit in the last 12 months?: Yes Did you have a dental problem in the last 6 months where you did not have access to dental care?: No Was dental information given to patient?: Patient has dentist HPI DARY, thyroid nodule HPI Details 62-year-old overweight female with a history of thyroid nodule left carotid aneurysm obstructive sleep apnea coming in for follow-up. Last seen in January 2023. Patient is up-to-date with colonoscopy October 2022 mammogram June 2022. Review of the notes in March had an ultrasound of the head and neck showing marked heterogeneity of the thyroid tissue without discrete nodules patient did see endocrinology and would there was plans on biopsy. Patient also has obstructive sleep apnea and has seen Neurology and advised repeat sleep study. mild raynauds [facility] Medical History Sleep apnea Uterine fibroid Hypercholesterolemia Allergic rhinitis Carotid aneurysm, left Thoracic aortic ectasia Obstructive sleep apnea Surgical History Hx of colonoscopy S/P ROBERTO-BSO (total abdominal hysterectomy and bilateral salpingo-oophorectomy) History of shoulder surgery History of tubal ligation Family History Father Diabetes Hypertension Throat cancer Mother Diabetes Hypertension Stroke Sister History of ETOH abuse Kidney disease Social History Housing: Apartment Alcohol intake: current Alcohol intake frequency: a few times a month Patient Tobacco Use Status: Former Tobacco user Quit Date: 20 yrs ago Tobacco use type: Cigarette Years Smoked: stopped 2010 e-Cigarette/Vaping Use: Never Used Second Hand Smoke Exposure: No service: No Current occupational status: employed 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 1. Little interest or pleasure in doing things: not at all 2. Feeling down, depressed, or hopeless: not at all 3. Trouble falling or staying asleep, or sleeping too much: not at all 4. Feeling tired or having little energy: not at all 5. Poor appetite or overeating: not at all 6. Feeling bad about yourself - or that you are a failure or have let yourself or your family down: not at all 7. Trouble concentrating on things, such as reading the newspaper or watching television: not at all 8. Moving or speaking so slowly that other people could have noticed. Or the opposite - being so fidgety or restless that you have been moving around a lot more than usual: not at all 9. Thoughts that you would be better off or of hurting yourself in some way: not at all Total score: 0 Depression Screening Interpretation: Negative Depression Screening Done: Yes 62984 - PHQ-9 Billing: Yes Source: Developed by Drs. Elmer Lim, Laura Otto, Tavo Basurto and colleagues, with an educational radha from [employer]. Thrive Questionnaire Date Thrive assessed: 05/31/23 I am a: Patient What is your living situation today?: I have a steady place to live Within the past 12 months, did the food you bought not last and you didn't have the money to get more?: Never true Within the past 12 months, did you worry whether your food would run out before you got money to buy more?: Never true Do you have trouble paying for medicines?: No Do you have trouble getting transportation to medical appointments?: No Do you have trouble paying your heating and electricity bill?: No Do you have trouble taking care of your child, family member or friend?: No Do you have trouble with day-to-day activities such as bathing, preparing meals, shopping, managing finances, etc.?: No Are you currently unemployed and looking for a job?: No Are you interested in more education?: No Please select the resources that you would like help with: None Currently or been in a relationship where the following occur: no concerns reported THRIVE Score: 0 AUDIT C Alcohol Use Questionnaire (AUDIT-C) 1. How often do you have a drink containing alcohol?: 2-3 times a week 2. How many drinks containing alcohol do you have on a typical day when you are drinking?: 1 or 2 3. How often do you have six or more drinks on one occasion?: Never Total Score: 3 MISHEL-7 AMB Questionnaire MISHEL-7 Date MISHEL - 7 assessed: 05/31/23 Feeling nervous, anxious, or on edge: 2 = More than half the days Not being able to stop or control worryin = Nearly every day Worrying too much about different things: 2 = More than half the days Trouble relaxin = Several days Being so restless that it is hard to sit still: 2 = More than half the days Becoming easily annoyed or irritable: 1 = Several days Feeling afraid as if something awful might happen: 2 = More than half the days Total MISHEL-7 score (0-4 normal; 5-9 mild; 10-14 moderate; 15-21 severe): 13 Source: Developed by Drs. Elmer Lim, Laura Otto, Taov Basurto and colleagues, with an educational radha from [employer] MISHEL-7 Assessment Billing MISHEL-7 Assessment Tool: MISHEL-7 Assessment 95143 Physical exam (Primary Care) Vital Signs: Last Vital Signs Pulse 75 05/31/23 11:47 BP 132/92 H 05/31/23 11:47 Pulse Ox 98 05/31/23 11:47 Oxygen Delivery Method Room Air 05/31/23 11:47 BMI result Body Mass Index 27.3 Tobacco/Smoking Status: Tobacco use Status Tobacco use date assessed 05/31/23 05/31/23 11:54 Patient Tobacco Use Status Former Tobacco user 05/31/23 11:44 Tobacco use type Cigarette 05/31/23 11:44 e-Cigarette/Vaping Use Never Used 05/31/23 11:44 PHQ-9: PHQ-9 Score PHQ-9: Total score 0 05/31/23 12:13 Depression Screening Interpretation: Negative Thrive Assessment: Date of Thrive Assessment Date Thrive assessed 05/31/23 05/31/23 11:54 Currently or been in a relationship where the following occur: no concerns reported Const General: alert; No acute distress Eyes Conjunctivae: conjunctivae normal Resp Auscultation: clear to auscultation bilaterally Cardio Rate: regular rate Rhythm: regular rhythm GI Inspection: Yes normal to inspection Extrem General: Yes normal to inspection and No edema Assessment and Plan Assessment & Plan (1) Thyroid nodule: Comment: December 2022Nodule in the superior portion of the right thyroid lobe measures up to 2.6 cm with a TI-RADS Category 5. Nodule is amenable to biopsy if thyroid performed. 2. Nodule in the lower pole of the right thyroid lobe measures up to 1.2 cm with a TI-RADS Category 4. Follow-up as below. 3. Nodule in the mid/superior portion of the left thyroid lobe measures up to 3.5 cm with a TI-RADS Category 4. Nodule is amenable to biopsy if not already performed. 4. Bilateral thyroid lobes demonstrate heterogeneous echotexture with increased vascularity. 5. Multiple bilateral lymph nodes are noted the largest on the right side measuring 0.4 cm in short axis with loss of height hilum. The largest on the left side measuring 0.6 cm in short axis with loss of fatty hilum. Code(s): E04.1 - Nontoxic single thyroid nodule Plan: Patient had a repeat ultrasound in March revealing no nodules. June 2023 (2) Carotid aneurysm, left: Comment: December 21 2022Stable 5 mm aneurysm involving the cavernous left ICA and stable 1 mm aneurysm versus infundibula involving the right carotid terminus. Please note that CTA of the head is sufficient to reevaluate these aneurysms on future follow-up imaging. 3. No arterial high-grade stenosis or large vessel occlusion in the head or neck. 4. Heterogeneous enhancement of the thyroid gland with suggestion of a hypoenhancing nodule in the left lobe measuring up to 2.3 cm. Recommend further evaluation with thyroid ultrasound. Code(s): I72.0 - Aneurysm of carotid artery Plan: Continue to follow-up and has been stable. (3) Overweight (BMI 25.0-29.9): Code(s): E66.3 - Overweight Plan: Diet and exercise (4) Hypercholesterolemia: Comment: no meds currently Code(s): E78.00 - Pure hypercholesterolemia, unspecified Plan: Avoid fried foods, chicken skin, eggs, butter margarine, pastries and meat. Be it pork or beef they have a lot of cholesterol LDL goal of less than 130 and triglyceride of less than 150 November 2022 last blood work (5) Obstructive sleep apnea: Comment: March 2018 10 cm. Code(s): G47.33 - Obstructive sleep apnea (adult) (pediatric) Plan: Patient has seen Neurology in advised plan to repeat sleep study (6) Allergic rhinitis: Code(s): J30.9 - Allergic rhinitis, unspecified (7) Blood pressure elevated without history of HTN: Code(s): R03.0 - Elevated blood-pressure reading, without diagnosis of hypertension Plan: monitor BP and record and ff up (8) Generalized anxiety disorder: Code(s): F41.1 - Generalized anxiety disorder Plan: decline referral for now and med. (9) Desensitization to allergy shot: Comment: Dr. Blanco Code(s): Z51.6 - Encounter for desensitization to allergens Medications: Refilled fexofenadine 180 mg PO DAILY 90 tabs 3RF cyclobenzaprine 5 mg PO TID PRN 60 tabs 0RF muscle spasm D64.9 - Anemia, unspecified polyethylene glycol 3350 (Miralax) 17 grams PO DAILY 510 grams 3RF Coding Level of Care Code Est Pt Level 4 (12544) Diagnoses Thyroid nodule E04.1 Carotid aneurysm, left I72.0 Overweight (BMI 25.0-29.9) E66.3 Hypercholesterolemia E78.00 Obstructive sleep apnea G47.33 Allergic rhinitis J30.9 Blood pressure elevated without history of HTN R03.0 Generalized anxiety disorder F41.1 Desensitization to allergy shot Z51.6 Additional Codes MISHEL-7 Assessment Billing - MISHEL-7 Assessment Tool: MISHEL-7 Assessment [id number] ([id number])
[2023-05-31 11:47] VITALS: BP 132/92; PULSE 75; O2SAT 98; BMI 27.3
== END 2023-05-31 12:30 | disposition home or self-care (01) ==
PROVIDERS: PCP Internal Medicine; Visit Provider Internal Medicine
DX: E04.1 Nontoxic single thyroid nodule (principal); I72.0 Aneurysm of carotid artery; E66.3 Overweight; E78.00 Pure hypercholesterolemia, unspecified; G47.33 Obstructive sleep apnea (adult) (pediatric); J30.9 Allergic rhinitis, unspecified; R03.0 Elevated blood-pressure reading, without diagnosis of hypertension; F41.1 Generalized anxiety disorder; Z51.6 Encounter for desensitization to allergens
CPT/HCPCS: 99214

== ENCOUNTER 2023-07-18 14:50 | Outpatient (AMB) | payer OTHER, SELFPAY ==
[2023-07-18 14:52] VITALS: BP 130/80; PULSE 60; O2SAT 100; BMI 27.7
--- NOTE | 2023-07-18 14:52 | MHC.OFFVIS ---
Intake Vital Signs 07/18/23 14:52 Height 5 ft 2 in Weight 151 lb 8 oz BMI 27.7 BP 130/80 Blood Pressure Location Lt brachial Position Sitting Pulse 60 Pulse Source Pulse Oximeter Pulse Oximetry (%) 100 Oxygen Delivery Method Room Air Intake Visit Reasons: follow up DARY - Confirmed Intake Note: Feeling very sleepy. Sash Maker Required: No Accompanied by: Friend Allergies latex Allergy (Unknown, Verified 07/18/23 14:56) unknown seasonal Allergy (Unknown, Uncoded 05/31/23 11:54) Unknown HPI HPI Comments History of Present Illness Details 62 y/o female patient presents for follow up of DARY on CPAP. Pt was diagnosed with DARY in 2017 and started CPAP therapy. However, she has not have supplies since 2018 and stopped using CPAP. Her home care company is [facility] [facility]. New CPAP supply order sent to [facility]. She was told that she needs to use CPAP 6 months, nightly, more than 4hrs, and then her insurance will cover for the CPAP supplies. She reports snoring, gasping arousals, non refreshing sleep and daytime sleepiness. She gained at least 20 lb since the last sleep study. [facility] Medical History Sleep apnea Uterine fibroid Hypercholesterolemia Allergic rhinitis Carotid aneurysm, left Thoracic aortic ectasia Obstructive sleep apnea Surgical History Hx of colonoscopy S/P ROBERTO-BSO (total abdominal hysterectomy and bilateral salpingo-oophorectomy) History of shoulder surgery History of tubal ligation Family History Father Diabetes Hypertension Throat cancer Mother Diabetes Hypertension Stroke Sister History of ETOH abuse Kidney disease Social History Housing: Apartment Alcohol intake: current Alcohol intake frequency: a few times a month Patient Tobacco Use Status: Former Tobacco user Quit Date: 20 yrs ago Tobacco use type: Cigarette Years Smoked: stopped 2010 e-Cigarette/Vaping Use: Never Used Second Hand Smoke Exposure: No service: No Current occupational status: employed 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 Gender identity: Female Cognitive needs: No Hearing needs: No Vision needs: Yes Review of Systems Const All systems reviewed & are unremarkable except as noted in HPI and below ENT Reports Normal hearing present Neuro Reports Normal hearing present Physical Exam Vital Signs: Last Vital Signs Pulse 60 07/18/23 14:52 BP 130/80 07/18/23 14:52 Pulse Ox 100 07/18/23 14:52 Oxygen Delivery Method Room Air 07/18/23 14:52 BMI result Body Mass Index 27.7 Const General: cooperative Nutritional Appearance: overweight Orientation/consciousness: patient oriented x3 Neck Neck: Yes full ROM and Yes supple Resp Effort & Inspection: normal respiratory effort and able to speak in complete sentences Neuro General: patient oriented x3 and gait normal Cranial nerves: Yes Bilaterally intact EOM present, Yes Normal facial strength present, Yes Midline tongue present, Yes Symmetric palate elevation present, Yes Normal hearing present, Yes Ability to bilaterally rotate head present and Yes Ability to bilaterally elevate shoulders present Cognition (Neuro): normal cognition Gait exam (Neuro): Normal gait present Motor exam (neuro): 5/5 motor strength present throughout, Pronator motor function not present and no tremor noted Psych Appearance: grossly normal Mental Status: mental status grossly normal Speech and movement: Normal speech and movement present Affect: normal affect Attitude: cooperative Assessment & Plan Assessment & Plan (1) Obstructive sleep apnea: Code(s): G47.33 - Obstructive sleep apnea (adult) (pediatric) Plan Pt is willing to buy CPAP supplies for the next 5 months. CPAP supply information given to patient. Stressed CPAP compliance, use CPAP nightly and more than 4 hrs. Coding Level of Care Code Est Pt Level 3 (97148) Diagnoses Obstructive sleep apnea G47.33
== END 2023-07-18 15:18 | disposition home or self-care (01) ==
PROVIDERS: PCP Internal Medicine; Visit Provider Nurse Practitioner Family
DX: G47.33 Obstructive sleep apnea (adult) (pediatric) (principal)
CPT/HCPCS: 99213

== ENCOUNTER → 2023-07-18 14:50 | Outpatient (BNVA) | payer OTHER, SELFPAY | PROVIDERS: PCP Internal Medicine; Visit Provider Nurse Practitioner Family ==

== ENCOUNTER 2023-08-05 14:45 | Outpatient (AMB) | payer OTHER, SELFPAY ==
--- NOTE | 2023-08-05 14:46 | MHC.PC.OV ---
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 Last complete blood work was November 2022. . [facility] Medical History Sleep apnea Uterine fibroid Hypercholesterolemia Allergic rhinitis Carotid aneurysm, left Thoracic aortic ectasia Obstructive sleep apnea Surgical History Hx of colonoscopy S/P ROBERTO-BSO (total abdominal hysterectomy and bilateral salpingo-oophorectomy) History of shoulder surgery History of tubal ligation Family History Father Diabetes Hypertension Throat cancer Mother Diabetes Hypertension Stroke Sister History of ETOH abuse Kidney disease Social History Housing: Apartment Alcohol intake: current Alcohol intake frequency: a few times a month Patient Tobacco Use Status: Former Tobacco user Quit Date: 20 yrs ago Tobacco use type: Cigarette Years Smoked: stopped 2010 e-Cigarette/Vaping Use: Never Used Second Hand Smoke Exposure: No service: No Current occupational status: employed 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 Gender identity: Female Cognitive needs: No Hearing needs: No Vision needs: Yes Questionnaire Thrive Questionnaire Date Thrive assessed: 08/05/23 I am a: Patient What is your living situation today?: I have a steady place to live Within the past 12 months, did the food you bought not last and you didn't have the money to get more?: Never true Within the past 12 months, did you worry whether your food would run out before you got money to buy more?: Never true Do you have trouble paying for medicines?: No Do you have trouble getting transportation to medical appointments?: No Do you have trouble paying your heating and electricity bill?: No Do you have trouble taking care of your child, family member or friend?: No Do you have trouble with day-to-day activities such as bathing, preparing meals, shopping, managing finances, etc.?: No Are you currently unemployed and looking for a job?: No Are you interested in more education?: No Please select the resources that you would like help with: None Currently or been in a relationship where the following occur: no concerns reported THRIVE Score: 0 AUDIT C Alcohol Use Questionnaire (AUDIT-C) 1. How often do you have a drink containing alcohol?: 2-3 times a week 2. How many drinks containing alcohol do you have on a typical day when you are drinking?: 1 or 2 3. How often do you have six or more drinks on one occasion?: Never Total Score: 3 MISHEL-7 AMB Questionnaire MISHEL-7 Date MISHEL - 7 assessed: 05/31/23 Source: Developed by Drs. Elmer Lim, Laura Otto, Tavo Basurto and colleagues, with an educational radha from [employer]. Physical exam (Primary Care) Vital Signs: Last Vital Signs Pulse 67 08/05/23 14:47 BP 120/80 08/05/23 16:16 Pulse Ox 99 08/05/23 14:47 Oxygen Delivery Method Room Air 08/05/23 14:47 BMI result Body Mass Index 27.1 Tobacco/Smoking Status: Tobacco use Status Tobacco use date assessed 08/05/23 08/05/23 14:48 Patient Tobacco Use Status Former Tobacco user 08/05/23 14:48 Tobacco use type Cigarette 08/05/23 14:48 e-Cigarette/Vaping Use Never Used 08/05/23 14:48 Thrive Assessment: Date of Thrive Assessment Date Thrive assessed 08/05/23 08/05/23 14:48 Currently or been in a relationship where the following occur: no concerns reported Const General: alert; No acute distress Eyes Conjunctivae: conjunctivae normal Resp Auscultation: clear to auscultation bilaterally Cardio Rate: regular rate Rhythm: regular rhythm GI Inspection: Yes normal to inspection Extrem General: Yes normal to inspection and No edema Assessment and Plan Assessment & Plan (1) Blood pressure elevated without history of HTN: Code(s): R03.0 - Elevated blood-pressure reading, without diagnosis of hypertension Plan: Blood pressure check is normal, continue to monitor (2) Obstructive sleep apnea: Code(s): G47.33 - Obstructive sleep apnea (adult) (pediatric) Plan: Continue to use the CPAP more than 4 hours a night and benefits from this. (3) Hypercholesterolemia: Comment: no meds currently Code(s): E78.00 - Pure hypercholesterolemia, unspecified Plan: Avoid fried foods, chicken skin, eggs, butter margarine, pastries and meat. Be it pork or beef they have a lot of cholesterol and November blood work reveals normal results. (4) Constipation: Code(s): K59.00 - Constipation, unspecified Qualifiers: Constipation type: slow transit constipation Qualified Code(s): K59.01 - Slow transit constipation Plan: Three rules for constipation 1. Diet need to have a high fiber diet less of meat 2. Increase oral fluids 3. Exercise on MiraLax p.r.n. Orders: Orders Comprehensive Met. Panel 3 Months R03.0 - Elevated blood-pressure reading, without diagnosis of hypertension Lipid Panel 3 Months E78.00 - Pure hypercholesterolemia, unspecified, R03.0 - Elevated blood-pressure reading, without diagnosis of hypertension Complete Blood Count Auto Diff 3 Months R03.0 - Elevated blood-pressure reading, without diagnosis of hypertension Thyroid Stimulating Hormone 3 Months R03.0 - Elevated blood-pressure reading, without diagnosis of hypertension Free T4 (Free Thyroxine) 3 Months R03.0 - Elevated blood-pressure reading, without diagnosis of hypertension Vitamin B12 and Folate 3 Months R03.0 - Elevated blood-pressure reading, without diagnosis of hypertension Medications: Refilled fluticasone propionate 50 mcg/actuation 2 sprays intranasal DAILY 16 grams 3RF J30.9 - Allergic rhinitis, unspecified Coding Level of Care Code Est Pt Level 4 (76497) Diagnoses Blood pressure elevated without history of HTN R03.0 Obstructive sleep apnea G47.33 Hypercholesterolemia E78.00 Slow transit constipation K59.01 Constipation type: slow transit constipation
[2023-08-05 14:47] VITALS: BP 112/82; PULSE 67; O2SAT 99; BMI 27.1
[2023-08-05 16:16] VITALS: BP 120/80
== END 2023-08-05 16:23 | disposition home or self-care (01) ==
PROVIDERS: PCP Internal Medicine; Visit Provider Internal Medicine
DX: R03.0 Elevated blood-pressure reading, without diagnosis of hypertension (principal); G47.33 Obstructive sleep apnea (adult) (pediatric); E78.00 Pure hypercholesterolemia, unspecified; K59.01 Slow transit constipation
CPT/HCPCS: 99214

== ENCOUNTER 2023-08-14 10:53 | Outpatient (REF) | payer OTHER, SELFPAY ==
--- NOTE | ~2023-08-14 | MM_ITS ---
EXAMINATION: MM SCREENING DIGITAL BREAST TOMOSYNTHESIS, BILATERAL CLINICAL INFORMATION: Screening. Asymptomatic. COMPARISON: Mammography: 07/19/2022, 07/13/2021, 07/08/2020, 07/03/2019, and dating back to 2017. TECHNIQUE: Digital breast tomosynthesis is performed in both the craniocaudal and mediolateral oblique views along with computer-aided detection (CAD). Synthesized 2D images are generated from the tomosynthesis. FINDINGS: There are scattered areas of fibroglandular density (ACR BI-RADS breast composition Category b). There are no suspicious masses, suspicious grouped calcifications, or areas of architectural distortion in either breast. Oval low-density circumscribed asymmetry approximately 8:00 mid right breast is unchanged. The parenchymal pattern is stable from prior exams. No suspicious skin or axillary abnormality. MM/MM tomosynthesis screening BI IMPRESSION: No mammographic evidence of malignancy. No significant interval change. ASSESSMENT: BI-RADS BI-RADS 2 - Benign Findings RECOMMENDATION: Routine annual mammography screening. 1 year F/U This examination should not preclude the clinical evaluation of a suspicious palpable abnormality. This patient's information was entered into a reminder system with a target due date for their next mammogram.
== END 2023-08-14 10:54 | disposition home or self-care (01) ==
LOC: HO.MAMMO 10:53
PROVIDERS: PCP Internal Medicine; Visit Provider Internal Medicine
DX: Z12.31 Encounter for screening mammogram for malignant neoplasm of breast (principal)
CPT/HCPCS: 77063; 77067

== ENCOUNTER → 2023-08-14 11:30 | Outpatient (BNV) | payer OTHER, SELFPAY | PROVIDERS: PCP Internal Medicine; Visit Provider Radiology Diagnostic Radiology | DX: Z12.31 Encounter for screening mammogram for malignant neoplasm of breast (principal) | CPT/HCPCS: 77063; 77067 ==

== ENCOUNTER 2023-10-28 11:21 | Outpatient (REF) | payer OTHER, SELFPAY ==
[2023-10-28 11:43] LABS: MANUAL DIFF FLAG NO
[2023-10-28 12:00] LABS: Basophils Percent Auto 0.3 % (0-2); Eosinophils Percent Auto 0.3 % (0-4); Hematocrit 36.8 % (37.0-47.0); Hemoglobin 11.5 g/dl (12.0-16.0); Imm Gran Abs Auto 0.01 X10*3/uL (0.00-0.03); Imm Gran Pct Auto 0.2 % (0.0-0.4); Lymphocytes Absolute Auto 2.7 X10*3/uL (1.2-4.9); Lymphocytes Percent Auto 42.5 % (20-40); Mean Corpuscular HGB Conc 31.3 g/dl (31.0-35.0); Mean Corpuscular Hemoglobin 26.4 pg (27.0-33.0); Mean Corpuscular Volume 84.4 fL (80.0-98.0); Mean Platelet Volume 9.9 fL (9.4-12.3); Monocytes Absolute Auto 0.5 X10*3/uL (0.1-1.2); Monocytes Percent Auto 8.2 % (2-11); Neutrophils Percent Auto 48.5 % (45-73); Platelet Count 259 X10*3/uL (160-400); Red Blood Count 4.36 X10*6/uL (4.20-5.50); Red Cell Distribution Width 13.5 % (11.0-16.0); White Blood Count 6.2 X10*3/uL (4.8-10.8)
[2023-10-28 12:41] LABS: Alanine Aminotransferase 28 U/L (0-31); Albumin Level 4.4 g/dL (3.5-5.0); Alkaline Phosphatase 118 U/L (39-117); Anion Gap 11 (12-20); Aspartate Amino Transferase 23 U/L (5-31); Bilirubin Total 0.6 mg/dL (0.0-1.0); Blood Urea Nitrogen 15 mg/dL (9-16); Calcium 9.9 mg/dL (8.4-10.2); Carbon Dioxide 28 mmol/L (22-29); Chloride 108 mmol/L (96-108); Cholesterol 197 mg/dL (<200); Estimated Glomerular Filt Rate > 60; Glucose Random 83 mg/dL (60-115); HDL Cholesterol 66 mg/dL (>40); LDL Cholesterol Calculated 114 mg/dL (<100); Potassium 3.9 mmol/L (3.3-5.1); Sodium 143 mmol/L (135-145); Total Protein 7.5 g/dL (6.5-8.0); Triglycerides 85 mg/dL (<150)
[2023-10-28 12:58] LABS: Free T4 (Free Thyroxine) 0.79 ng/dL (0.71-1.85)
[2023-10-28 13:09] LABS: Folate 14.4 ng/mL (> or = 4.0); Vitamin B12 741 pg/mL (200-900)
== END 2023-10-28 11:22 | disposition home or self-care (01) ==
LOC: HO.LAB 11:21
PROVIDERS: PCP Internal Medicine; Visit Provider Internal Medicine
DX: E78.00 Pure hypercholesterolemia, unspecified (principal); R03.0 Elevated blood-pressure reading, without diagnosis of hypertension
CPT/HCPCS: 36415; 80053; 80061; 82607; 82746; 84439; 84443; 85025

== ENCOUNTER 2023-11-12 10:56 | Outpatient (AMB) | payer OTHER, SELFPAY ==
[2023-11-12 11:01] VITALS: BP 122/70; PULSE 80; O2SAT 98; BMI 27.2
--- NOTE | 2023-11-12 11:01 | A.OFFPC_ITS ---
Vital Signs 11/12/23 11:01 Height 5 ft 2 in Weight 149 lb BMI 27.2 BP 122/70 Blood Pressure Location Lt brachial Position Sitting Pulse 80 Pulse Source Pulse Oximeter Pulse Oximetry (%) 98 Oxygen Delivery Method Room Air Intake Visit Reasons: pe Allergies latex Allergy (Unknown, Verified 11/12/23 11:03) unknown seasonal Allergy (Unknown, Uncoded 11/12/23 11:03) Unknown Medication List - Last Reconciled 11/12/23 by Canelo Sidhu MD acetaminophen 1,000 mg (2 x 500 mg) PO QID PRN ascorbic acid (vitamin C) mg PO cholecalciferol (vitamin D3) 25 mcg PO DAILY cyanocobalamin (vitamin B-12) 1,000 mcg PO DAILY cyclobenzaprine 5 mg PO TID PRN diphenhydramine HCl (Banophen) 50 mg PO Q4-6H PRN fexofenadine 180 mg PO DAILY fluticasone propionate 50 mcg/actuation 2 sprays intranasal DAILY multivitamin 1 tab PO DAILY polyethylene glycol 3350 (Miralax) 17 grams PO DAILY Tobacco use date assessed: 08/05/23 Dental Screening Dental Screen Date: 05/31/23 HPI pe HPI Details 62-year-old overweight female with a his tory of obstructive sleep apnea hypercholesterolemia last seen in July 2023 noted to have an elevated blood pressure patient is here for physical exam. Patient's colonoscopy is up-to-date 11/08/2022 mammogram is due. 2 weeks ago no trauma pain on the R posterio gluteal area radiating to the lateral R knee area and alsoheard pop and pain on the medial thigh also to groin- she popped it back [facility] Medical History Sleep apnea Uterine fibroid Hypercholesterolemia Allergic rhinitis Carotid aneurysm, left Thoracic aortic ectasia Obstructive sleep apnea Surgical History Hx of colonoscopy S/P ROBERTO-BSO (total abdominal hysterectomy and bilateral salpingo-oophorectomy) History of shoulder surgery History of tubal ligation Family History Father Diabetes Hypertension Throat cancer Mother Diabetes Hypertension Stroke Sister History of ETOH abuse Kidney disease Social History (Updated 11/12/23 @ 11:55 by Canelo Sidhu MD) Housing: Apartment Alcohol intake: current Alcohol intake frequency: a few times a month Comment: 3 drink 2x a month Patient Tobacco Use Status: Former Tobacco user Tobacco use type: Cigarette Years Smoked: stopped 2010 e-Cigarette/Vaping Use: Never Used Second Hand Smoke Exposure: No service: No Current occupational status: employed 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 1. Little interest or pleasure in doing things: not at all 2. Feeling down, depressed, or hopeless: not at all 3. Trouble falling or staying asleep, or sleeping too much: not at all 4. Feeling tired or having little energy: not at all 5. Poor appetite or overeating: not at all 6. Feeling bad about yourself - or that you are a failure or have let yourself or your family down: not at all 7. Trouble concentrating on things, such as reading the newspaper or watching television: not at all 8. Moving or speaking so slowly that other people could have noticed. Or the opposite - being so fidgety or restless that you have been moving around a lot more than usual: not at all 9. Thoughts that you would be better off or of hurting yourself in some way: not at all Total score: 0 Depression Screening Interpretation: Negative Depression Screening Done: Yes 53525 - PHQ-9 Billing: Yes Source: Developed by Drs. Elmer Lim, Laura Otto, Tavo Basurto and colleagues, with an educational radha from [employer]. Thrive Questionnaire Date Thrive assessed: 08/05/23 AUDIT C Alcohol Use Questionnaire (AUDIT-C) 1. How often do you have a drink containing alcohol?: 2-3 times a week 2. How many drinks containing alcohol do you have on a typical day when you are drinking?: 1 or 2 3. How often do you have six or more drinks on one occasion?: Never Total Score: 3 MISHEL-7 AMB Questionnaire MISHEL-7 Date MISHEL - 7 assessed: 05/31/23 Source: Developed by Drs. Elmer Lim, Laura Otto, Tavo Basurto and colleagues, with an educational radha from [employer]. Review of Systems Const Denies poor appetite and Denies weakness Eyes Denies no additional complaints ENT Reports Normal hearing present, Denies dizziness, Denies nasal congestion, Denies tinnitus and Denies sore throat Card Denies chest pain, Denies syncope, Denies rapid heart rate and Denies dyspnea Resp Denies cough and Denies dyspnea GI Denies change in stool character, Reports constipation, Denies diarrhea, Denies nausea and Denies vomiting Denies urinary frequency, Denies difficulty voiding and Denies dysuria Neuro Reports Normal hearing present, Denies confusion, Denies dizziness, Denies syncope and Denies weakness Psych Denies confusion Physical exam (Primary Care) Vital Signs: Last Vital Signs Pulse 80 11/12/23 11:01 BP 122/70 11/12/23 11:01 Pulse Ox 98 11/12/23 11:01 Oxygen Delivery Method Room Air 11/12/23 11:01 BMI result Body Mass Index 27.2 Tobacco/Smoking Status: Tobacco use Status Tobacco use date assessed 08/05/23 11/12/23 11:03 Patient Tobacco Use Status Former Tobacco user 11/12/23 11:03 Tobacco use type Cigarette 11/12/23 11:03 e-Cigarette/Vaping Use Never Used 11/12/23 11:03 PHQ-9: PHQ-9 Score PHQ-9: Total score 0 11/12/23 11:38 Depression Screening Interpretation: Negative Thrive Assessment: Date of Thrive Assessment Date Thrive assessed 08/05/23 11/12/23 11:03 Const General: alert and awake; No confusion Orientation/consciousness: No confusion HENMT Head: Yes normocephalic Ears: external ears normal and TM's normal bilaterally Face and sinus: Yes normal facial exam Mouth: moist mucous membranes Throat: Yes tonsils normal Eyes Conjunctivae: conjunctivae normal Pupils: Equal, round and reactive pupils present and Pupil accommodation reflex normal Direct Ophthalmoscopy: normal light reflex Neck Neck: No lymphadenopathy Thyroid: Thyroid normal Chest Chest palpation & inspection: normal inspection of the chest Resp Effort & Inspection: normal respiratory effort and no audible wheezes Auscultation: clear to auscultation bilaterally, no crackles, no wheezes and lung sounds not diminished Cardio Rate: regular rate Rhythm: regular rhythm Peripheral pulses: radial pulses present and dorsalis pedis present GI Other: guaiac negative Palpation (GI): no masses Auscultation: normal bowel sounds and normoactive bowel sounds Skin General skin exam: no rashes or lesions noted Rashes: no rashes Neuro General: deep tendon reflexes 2+ bilaterally and No confusion Cranial nerves: Yes Equal, round and reactive pupils present, Yes Midline tongue present, Yes Normal hearing present and Yes Ability to bilaterally elevate shoulders present Cognition (Neuro): normal cognition Gait exam (Neuro): Normal gait present Motor exam (neuro): 5/5 motor strength present throughout Deep tendon reflexes (DTR's): Right brachioradialis reflex intensity grade: 2+, Left brachioradialis reflex intensity grade: 2+, Right patellar reflex intensity grade: 2+ and Left patellar reflex intensity grade: 2+ Extrem General: No edema Assessment and Plan Assessment & Plan (1) Annual physical exam: Code(s): Z00.00 - Encounter for general adult medical examination without abnormal findings Plan: Patient is advised to eat healthy, keep well hydrated, keep active and have adequate sleep. (2) Obstructive sleep apnea: Code(s): G47.33 - Obstructive sleep apnea (adult) (pediatric) Plan: Continue to use the CPAP more than 4 hours a night and benefits from (3) Mild anemia: Code(s): D64.9 - Anemia, unspecified Plan: Will monitor and retest (4) Generalized anxiety disorder: Comment: decline counselling Code(s): F41.1 - Generalized anxiety disorder Plan: decline counselling for now (5) Right sided sciatica: Code(s): M54.31 - Sciatica, right side Plan: decline muscle relaxant, would like to take tylenol. decline PT Orders: Orders Complete Blood Count Auto Diff Today D64.9 - Anemia, unspecified Ferritin Today D64.9 - Anemia, unspecified Reticulocyte Count Today D64.9 - Anemia, unspecified IRON PROFILE Today D64.9 - Anemia, unspecified Coding Level of Care Code Est Pt Prev Care 40-64y(64232) Diagnoses Annual physical exam Z00.00 Obstructive sleep apnea G47.33 Mild anemia D64.9 Generalized anxiety disorder F41.1 Right sided sciatica M54.31
== END 2023-11-12 12:18 | disposition home or self-care (01) ==
PROVIDERS: PCP Internal Medicine; Visit Provider Internal Medicine
DX: Z00.00 Encounter for general adult medical examination without abnormal findings (principal); G47.33 Obstructive sleep apnea (adult) (pediatric); D64.9 Anemia, unspecified; F41.1 Generalized anxiety disorder; M54.31 Sciatica, right side
CPT/HCPCS: 99396

== ENCOUNTER 2023-11-19 11:32 | Outpatient (REF) | payer OTHER, SELFPAY ==
[2023-11-19 11:52] LABS: MANUAL DIFF FLAG NO
[2023-11-19 12:31] LABS: Basophils Percent Auto 0.2 % (0-2); Eosinophils Percent Auto 0.3 % (0-4); Hematocrit 38.1 % (37.0-47.0); Hemoglobin 12.2 g/dl (12.0-16.0); Imm Gran Abs Auto 0.01 X10*3/uL (0.00-0.03); Imm Gran Pct Auto 0.2 % (0.0-0.4); Immature Retic Fraction 13.8 % (3.0-15.9); Lymphocytes Absolute Auto 2.8 X10*3/uL (1.2-4.9); Lymphocytes Percent Auto 43.3 % (20-40); Mean Corpuscular Hemoglobin 26.8 pg (27.0-33.0); Mean Corpuscular Volume 83.7 fL (80.0-98.0); Mean Platelet Volume 9.6 fL (9.4-12.3); Monocytes Absolute Auto 0.5 X10*3/uL (0.1-1.2); Neutrophils Absolute Auto 3.1 x10*3/uL (2.0-8.3); Platelet Count 300 X10*3/uL (160-400); Red Blood Count 4.55 X10*6/uL (4.20-5.50); Red Cell Distribution Width 13.7 % (11.0-16.0); Retic HGB Equivalent 30.3 pg (30.0-35.0); Reticulocyte Percent 1.5 % (0.5-1.8); White Blood Count 6.4 X10*3/uL (4.8-10.8)
[2023-11-19 13:08] LABS: Iron 53 mcg/dL (30-160); Percent Iron Saturation 19 % (15-50); Total Iron Binding Capacity 279 mcg/dL (228-428); Unsaturated Iron Binding 226 ug/dL
[2023-11-19 13:25] LABS: Ferritin 141 ng/mL (10-250)
== END 2023-11-19 11:33 | disposition home or self-care (01) ==
LOC: HO.LAB 11:32
PROVIDERS: PCP Internal Medicine; Visit Provider Internal Medicine
DX: D64.9 Anemia, unspecified (principal)
CPT/HCPCS: 36415; 82728; 83540; 85025; 85045

== ENCOUNTER 2024-01-16 14:40 | Outpatient (AMB) | payer OTHER, SELFPAY ==
--- NOTE | 2024-01-16 15:11 | MHC.OFFVIS ---
Vital Signs 01/16/24 15:13 Height 5 ft 2 in Weight 151 lb 6 oz BMI 27.7 Intake Visit Reasons: 6 mo f/u Intake Note: Patient presents for 6 month follow up. Allergies latex Allergy (Unknown, Verified 11/12/23 11:03) unknown seasonal Allergy (Unknown, Uncoded 11/12/23 11:03) Unknown HPI Comments Details: 63-yr-old female presents for follow-up visit of sleep apnea. Pt denies any significant interval medical history changes. Pt has not rec'd supplies from her resp company. She has been buying the supplies on her own. She is still noticing sleepiness. She wonder if her PAP settings should be adjsuted. Recent labs, per pt, were reassuring. States TSH has been WNL. 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 Pt does bring her CPAP to work w/ her. She is allowed to sleep up to 5 hrs a night while working- but may be interrupted if a client needs help. When she gets home, she will do her activities, and then try to sleep again.. Compliance Report Usage 12/17/2023 - 01/15/2024 Usage days 26/30 days (87%) >= 4 hours 20 days (67%) < 4 hours 6 days (20%) Usage hours 138 hours 30 minutes Average usage (total days) 4 hours 37 minutes Average usage (days used) 5 hours 20 minutes Median usage (days used) 5 hours 1 minutes Total used hours (value since last reset - 01/15/2024) 2,427 hours AirSense 10 AutoSet For Her Serial number [id number] Mode CPAP Set pressure 10 cmH2O EPR Fulltime EPR level 3 Therapy Leaks - L/min Median: 0.0 95th percentile: 4.1 Maximum: 7.9 Events per hour AI: 1.7 HI: 0.4 AHI: 2.1 PFSH Medical History (Updated 01/16/24 @ 17:28 by ELENA Greenwood) Vitamin D deficiency Uterine fibroid Hypercholesterolemia Allergic rhinitis Carotid aneurysm, left Thoracic aortic ectasia Obstructive sleep apnea Surgical History Hx of colonoscopy S/P ROBERTO-BSO (total abdominal hysterectomy and bilateral salpingo-oophorectomy) History of shoulder surgery History of tubal ligation Family History Father Diabetes Hypertension Throat cancer Mother Diabetes Hypertension Stroke Sister History of ETOH abuse Kidney disease Social History Housing: Apartment Alcohol intake: current Alcohol intake frequency: a few times a month Comment: 3 drink 2x a month Patient Tobacco Use Status: Former Tobacco user Tobacco use type: Cigarette Years Smoked: stopped 2010 e-Cigarette/Vaping Use: Never Used Second Hand Smoke Exposure: No service: No Current occupational status: employed 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 Gender identity: Female Cognitive needs: No Hearing needs: No Vision needs: Yes Review of Systems Const All systems reviewed & are unremarkable except as noted in HPI and below Physical Exam Vital Signs: BMI result Body Mass Index 27.7 Const General: no acute distress Orientation/consciousness: patient oriented x3 HEENT Other: Mallampati stage Resp Effort & Inspection: normal respiratory effort and able to speak in complete sentences Auscultation: clear to auscultation bilaterally Cardio Rate: regular rate Rhythm: regular rhythm Neuro General: patient oriented x3 Psych Mental Status: mental status grossly normal Speech and movement: Clear speech present Attitude: cooperative Results Reviewed Results Reviewed: PAP compliance report- see HPI Assessment & Plan Assessment & Plan (1) Obstructive sleep apnea: Code(s): G47.33 - Obstructive sleep apnea (adult) (pediatric) Category: Medical (2) Fatigue: Code(s): R53.83 - Other fatigue Category: Medical Plan Encouraged pt to increase sleep hrs to at least 7-9hrs per 24 hrs. She may try melatonin prior to sleeping during the day time. Will recheck her vitamin D level. I do not believe her PAP settings need to be adjusted at this time, as her residual AHIs are <3/hr. Information shared on sleep hygiene education resources, specifically encouraged pt to review shift work sleep d/o information. Continue CPAP 10 cmH2O w/ EPR level 3 nightly > 4 hours, as pt has good reduction in AHI. Clean CPAP machine and supplies routinely. Change CPAP supplies routinely- will f/u w/ resp company on why pt has not received supplies. Pt to contact us or respiratory company with any questions or concerns. Orders: Orders Vitamin D 25-OH (D2 and D3) Today E55.9 - Vitamin D deficiency, unspecified Coding Level of Care Code Est Pt Level 4 (72223) Diagnoses Obstructive sleep apnea G47.33 Fatigue R53.83
[2024-01-16 15:13] VITALS: BMI 27.7
== END 2024-01-16 15:52 | disposition home or self-care (01) ==
PROVIDERS: PCP Internal Medicine; Visit Provider Nurse Practitioner Family
DX: G47.33 Obstructive sleep apnea (adult) (pediatric) (principal); R53.83 Other fatigue
CPT/HCPCS: 99214

== ENCOUNTER → 2024-01-16 14:40 | Outpatient (BNVA) | payer OTHER, SELFPAY | PROVIDERS: PCP Internal Medicine; Visit Provider Nurse Practitioner Family ==

== ENCOUNTER 2024-01-27 13:24 | Outpatient (REF) | payer OTHER, SELFPAY ==
--- NOTE | ~2024-01-27 | MR_ITS ---
EXAMINATION: MR BRAIN WITHOUT AND WITH CONTRAST CLINICAL INFORMATION: Sudden onset hearing loss COMPARISON: CT scan, CT angiogram of brain on 12/21/2022 TECHNIQUE: Multiplanar, multisequence MRI of the brain was obtained before and after the intravenous administration of 7 mL Gadavist. EXAMINATION: MRI brain and internal auditory meatus. INDICATION: Vertigo, asymmetric sensorineural hearing loss, evaluate acoustic neuroma. TECHNIQUE: Examination was performed in a high field strength MRI scanner. Multiplanar multisequence MR imaging of the brain was performed without IV contrast enhancement. High-resolution axial T2 weighted images, axial and coronal T1 weighted images of bilateral internal auditory meati were obtained. Post contrast axial T1 weighted images of the brain; axial and coronal T1 weighted images of bilateral internal auditory meati were obtained after IV injection of 10 mL Gadavist. FINDINGS: Ventricles, sulci and cisterns are normal. Several tiny nonenhancing T2 hyperintense focal lesions are seen in upper bilateral frontal subcortical and deep white matters. No focal brainstem or cerebellar lesions with abnormal signal can be seen. Diffusion weighted images show no abnormal regional decrease in diffusion. Contrast enhanced images show normal enhancement of major intra cerebral blood vessels. No enhancing focal cerebral, brainstem or cerebellar lesions can be seen. High-resolution images show normal symmetric bilateral seventh/eighth nerve complexes. Bilateral cochleae and semicircular canals are also normal. Post contrast images show no abnormal asymmetric enhancement or mass lesions in bilateral seventh/eighth nerve complexes or inner ear labyrinth. The pituitary gland is normal. Optic chiasm is not displaced. Cerebellar tonsils position is normal. MR/MR head/brain wo/w con IMPRESSION: 1. Bilateral upper frontal tiny T2 hyperintense lesions could be compatible with ischemic white matter disease due to microangiopathy. 2. No focal enhancing cerebral lesion or acute infarction is seen. 3. No evidence of vestibular neuritis or acoustic neuroma. Electronically signed by: Brenton Corral MD 03/10/2024 11:[address] [facility]
[2024-01-27] MEDS: gadobutroL 7.5 ML VIAL IVPUSH (14:52)
== END 2024-01-27 13:25 | disposition home or self-care (01) ==
LOC: HO.MRI 13:24
PROVIDERS: PCP Internal Medicine; Visit Provider Otolaryngology
DX: H91.22 Sudden idiopathic hearing loss, left ear (principal)
CPT/HCPCS: 70553; A9585

== ENCOUNTER 2024-03-02 13:56 | Outpatient (AMB) | payer OTHER, SELFPAY ==
[2024-03-02 14:16] VITALS: BP 118/76; PULSE 83; TEMP 36.7; O2SAT 98; BMI 26.8
--- NOTE | 2024-03-02 14:16 | MHC.PC.OV ---
Vital Signs 03/02/24 14:16 Height 5 ft 2 in Weight 146 lb 8 oz BMI 26.8 BP 118/76 Blood Pressure Location Lt brachial Position Sitting Pulse 83 Pulse Source Pulse Oximeter Temp 98.0 F Temp Source Oral Pulse Oximetry (%) 98 Oxygen Delivery Method Room Air Intake Visit Reasons: ear pain/ blocked ears Allergies latex Allergy (Unknown, Verified 03/02/24 14:16) unknown seasonal Allergy (Unknown, Uncoded 03/02/24 14:16) Unknown Tobacco use date assessed: 03/02/24 Dental Screening Dental Screen Date: 03/02/24 Did you have a dental visit in the last 12 months?: Yes Did you have a dental problem in the last 6 months where you did not have access to dental care?: No Was dental information given to patient?: Patient has dentist HPI ear pain/ blocked ears HPI Details 63-year-old overweight female with obstructive sleep apnea mild anemia generalized anxiety disorder coming in for an acute problem. Last seen in October 2023 for physical exam. Patient's last colonoscopy 2022 mammogram is up-to-date. Patient had sudden hearing loss and an MRI requested results are still pending. Patient also has been follow-up with Neurology January 15 continue to use the CPAP and patient was advised/encouraged to increase sleep hours. Patient complained of ears being blocked with maxillary and frontal pain in the face patient also complains of left shoulder spasms. Does not complain of shortness of breath basilar but has a productive cough of thick whitish sputum. No fevers. [facility] Medical History Vitamin D deficiency Uterine fibroid Hypercholesterolemia Allergic rhinitis Carotid aneurysm, left Thoracic aortic ectasia Obstructive sleep apnea Surgical History Hx of colonoscopy S/P ROBERTO-BSO (total abdominal hysterectomy and bilateral salpingo-oophorectomy) History of shoulder surgery History of tubal ligation Family History Father Diabetes Hypertension Throat cancer Mother Diabetes Hypertension Stroke Sister History of ETOH abuse Kidney disease Social History Housing: Apartment Alcohol intake: current Alcohol intake frequency: a few times a month Comment: 3 drink 2x a month Patient Tobacco Use Status: Former Tobacco user Tobacco use type: Cigarette Years Smoked: stopped 2010 e-Cigarette/Vaping Use: Never Used Second Hand Smoke Exposure: No service: No Current occupational status: employed 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 1. Little interest or pleasure in doing things: not at all 2. Feeling down, depressed, or hopeless: not at all 3. Trouble falling or staying asleep, or sleeping too much: not at all 4. Feeling tired or having little energy: not at all 5. Poor appetite or overeating: not at all 6. Feeling bad about yourself - or that you are a failure or have let yourself or your family down: not at all 7. Trouble concentrating on things, such as reading the newspaper or watching television: not at all 8. Moving or speaking so slowly that other people could have noticed. Or the opposite - being so fidgety or restless that you have been moving around a lot more than usual: not at all 9. Thoughts that you would be better off or of hurting yourself in some way: not at all Total score: 0 Depression Screening Interpretation: Negative Depression Screening Done: Yes Source: Developed by Drs. Elmer Lim, Laura Otto, Tavo Basurto and colleagues, with an educational radha from [employer]. Thrive Questionnaire Date Thrive assessed: 08/05/23 I am a: Patient What is your living situation today?: I have a steady place to live Within the past 12 months, did the food you bought not last and you didn't have the money to get more?: Never true Within the past 12 months, did you worry whether your food would run out before you got money to buy more?: Never true Do you have trouble paying for medicines?: No Do you have trouble getting transportation to medical appointments?: No Do you have trouble paying your heating and electricity bill?: No Do you have trouble taking care of your child, family member or friend?: No Do you have trouble with day-to-day activities such as bathing, preparing meals, shopping, managing finances, etc.?: No Are you currently unemployed and looking for a job?: No Are you interested in more education?: No Please select the resources that you would like help with: None THRIVE Score: 0 AUDIT C Alcohol Use Questionnaire (AUDIT-C) 1. How often do you have a drink containing alcohol?: 2-3 times a week 2. How many drinks containing alcohol do you have on a typical day when you are drinking?: 1 or 2 3. How often do you have six or more drinks on one occasion?: Never Total Score: 3 MISHEL-7 AMB Questionnaire MISHEL-7 Date MISHEL - 7 assessed: 05/31/23 Feeling nervous, anxious, or on edge: 2 = More than half the days Not being able to stop or control worryin = Nearly every day Worrying too much about different things: 2 = More than half the days Trouble relaxin = Several days Being so restless that it is hard to sit still: 2 = More than half the days Becoming easily annoyed or irritable: 1 = Several days Feeling afraid as if something awful might happen: 2 = More than half the days Total MISHEL-7 score (0-4 normal; 5-9 mild; 10-14 moderate; 15-21 severe): 13 Source: Developed by Drs. Elmer Lim, Laura Otto, Tavo Basurto and colleagues, with an educational radha from [employer]. Physical exam (Primary Care) Vital Signs: Last Vital Signs Temp 98.0 F 03/02/24 14:16 Pulse 83 03/02/24 14:16 BP 118/76 03/02/24 14:16 Pulse Ox 98 03/02/24 14:16 Oxygen Delivery Method Room Air 03/02/24 14:16 BMI result Body Mass Index 26.8 Tobacco/Smoking Status: Tobacco use Status Tobacco use date assessed 03/02/24 03/02/24 14:19 Patient Tobacco Use Status Former Tobacco user 03/02/24 14:19 Tobacco use type Cigarette 03/02/24 14:19 e-Cigarette/Vaping Use Never Used 03/02/24 14:19 PHQ-9: PHQ-9 Score PHQ-9: Total score 0 03/02/24 14:45 Depression Screening Interpretation: Negative Thrive Assessment: Date of Thrive Assessment Date Thrive assessed 08/05/23 03/02/24 14:19 Const General: alert; No acute distress Eyes Conjunctivae: conjunctivae normal Resp Auscultation: clear to auscultation bilaterally Cardio Rate: regular rate Rhythm: regular rhythm GI Inspection: Yes normal to inspection Extrem General: Yes normal to inspection and No edema Coding Level of Care Code Est Pt Level 3 (80789) Diagnoses Acute non-recurrent maxillary sinusitis J01.00 Sinusitis location: maxillary Chronicity: acute Recurrence: non-recurrent Trapezius muscle spasm M62.838 Assessment & Plan Assessment & Plan (1) Sinusitis: Code(s): J32.9 - Chronic sinusitis, unspecified Category: Medical Qualifiers: Sinusitis location: maxillary Chronicity: acute Recurrence: non-recurrent Qualified Code(s): J01.00 - Acute maxillary sinusitis, unspecified Plan: Patient IS PRESCRIBED antibiotics. Keep well hydrated with 6-8 glasses water. Call if there is persistence. (2) Trapezius muscle spasm: Code(s): M62.838 - Other muscle spasm Category: Medical Plan: Heat and physical therapy recommended. Will treat conservatively as per patient. Medications: New azithromycin (Zithromax) For 250 mg dose pack: take 500 mg today (day 1), then 250 mg for 4 days (days 2-5) PO 6 tabs 0RF J32.9 - Chronic sinusitis, unspecified
== END 2024-03-02 15:07 | disposition home or self-care (01) ==
PROVIDERS: PCP Internal Medicine; Visit Provider Internal Medicine
DX: J01.00 Acute maxillary sinusitis, unspecified (principal); M62.838 Other muscle spasm

== ENCOUNTER → 2024-03-02 13:56 | Outpatient (BNVA) | payer OTHER, SELFPAY | PROVIDERS: PCP Internal Medicine; Visit Provider Internal Medicine ==

== ENCOUNTER 2024-05-14 11:30 | Outpatient (AMB) | payer OTHER, SELFPAY ==
--- NOTE | 2024-05-14 11:32 | A.OFFPC_ITS ---
Vital Signs 05/14/24 11:37 Height 5 ft 2 in Weight 148 lb BMI 27.1 BP 122/76 Blood Pressure Location Lt brachial Position Sitting Pulse 89 Pulse Source Pulse Oximeter Pulse Oximetry (%) 96 Oxygen Delivery Method Room Air Intake Visit Reasons: 6 Month F/U Intake Note: Patient did have COVID 2 weeks ago. Still having lingering symptoms Allergies latex Allergy (Unknown, Verified 05/14/24 11:37) unknown seasonal Allergy (Unknown, Uncoded 05/14/24 11:37) Unknown Tobacco use date assessed: 05/14/24 Dental Screening Dental Screen Date: 05/14/24 Did you have a dental visit in the last 12 months?: Yes Did you have a dental problem in the last 6 months where you did not have access to dental care?: No Was dental information given to patient?: Patient has dentist HPI 6 Month F/U HPI Details The patient is a 63-year-old female presenting with [id number] headache and sinus congestion. She reports testing positive for COVID-19 two weeks prior, around April 27, but returned to work following a mild course, notably without fever or sore throat. Post-recovery, she experiences persistent headaches and occasionally sweat. Additionally, she reports ongoing sinus congestion with postnasal drip, which contributes to her headache, particularly when bending down. Her nasal symptoms have been managed with a nasal spray and unspecified oral medications. Furthermore, the patient mentions a recent decrease in clothing fit, suggestive of weight loss, and acknowledges vision issues, noting a need for glasses which she is attempting to resolve with her insurance. Her medical history includes being up to date on most vaccinations, excluding the shingles vaccine, which she plans to receive. She states her overall health, apart from the current issues, as being good, with prior bloodwork and cholesterol levels within normal ranges. [facility] Medical History Vitamin D deficiency Uterine fibroid Hypercholesterolemia Allergic rhinitis Carotid aneurysm, left Thoracic aortic ectasia Obstructive sleep apnea Surgical History Hx of colonoscopy S/P ROBERTO-BSO (total abdominal hysterectomy and bilateral salpingo-oophorectomy) History of shoulder surgery History of tubal ligation Family History Father Diabetes Hypertension Throat cancer Mother Diabetes Hypertension Stroke Sister History of ETOH abuse Kidney disease Social History Housing: Apartment Alcohol intake: current Alcohol intake frequency: a few times a month Comment: 3 drink 2x a month Patient Tobacco Use Status: Former Tobacco user Tobacco use type: Cigarette Years Smoked: stopped 2010 e-Cigarette/Vaping Use: Never Used Second Hand Smoke Exposure: No service: No Current occupational status: employed 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 1. Little interest or pleasure in doing things: not at all 2. Feeling down, depressed, or hopeless: not at all 3. Trouble falling or staying asleep, or sleeping too much: not at all 4. Feeling tired or having little energy: not at all 5. Poor appetite or overeating: not at all 6. Feeling bad about yourself - or that you are a failure or have let yourself or your family down: not at all 7. Trouble concentrating on things, such as reading the newspaper or watching television: not at all 8. Moving or speaking so slowly that other people could have noticed. Or the opposite - being so fidgety or restless that you have been moving around a lot more than usual: not at all 9. Thoughts that you would be better off or of hurting yourself in some way: not at all Total score: 0 Depression Screening Interpretation: Negative Depression Screening Done: Yes Source: Developed by Drs. Elmer Lim, Laura Otto, Tavo Basurto and colleagues, with an educational radha from [employer]. Thrive Questionnaire Date Thrive assessed: 05/14/24 I am a: Patient What is your living situation today?: I have a steady place to live Within the past 12 months, did the food you bought not last and you didn't have the money to get more?: Never true Within the past 12 months, did you worry whether your food would run out before you got money to buy more?: Never true Do you have trouble paying for medicines?: No Do you have trouble getting transportation to medical appointments?: No Do you have trouble paying your heating and electricity bill?: No Do you have trouble taking care of your child, family member or friend?: No Do you have trouble with day-to-day activities such as bathing, preparing meals, shopping, managing finances, etc.?: No Are you currently unemployed and looking for a job?: No Are you interested in more education?: No Please select the resources that you would like help with: None Currently or been in a relationship where the following occur: No concerns reported THRIVE Score: 0 AUDIT C Alcohol Use Questionnaire (AUDIT-C) 3. How often do you have six or more drinks on one occasion?: Monthly Total Score: 2 MISHEL-7 AMB Questionnaire MISHEL-7 Date MISHEL - 7 assessed: 05/14/24 Feeling nervous, anxious, or on edge: 2 = More than half the days Not being able to stop or control worryin = Nearly every day Worrying too much about different things: 2 = More than half the days Trouble relaxin = Several days Being so restless that it is hard to sit still: 2 = More than half the days Becoming easily annoyed or irritable: 1 = Several days Feeling afraid as if something awful might happen: 2 = More than half the days Total MISHEL-7 score (0-4 normal; 5-9 mild; 10-14 moderate; 15-21 severe): 13 Source: Developed by Drs. Elmer Lim, Laura Otto, Tavo Basurto and colleagues, with an educational radha from [employer]. Physical exam (Primary Care) Vital Signs: Last Vital Signs Pulse 89 05/14/24 11:37 BP 122/76 05/14/24 11:37 Pulse Ox 96 05/14/24 11:37 Oxygen Delivery Method Room Air 05/14/24 11:37 BMI result Body Mass Index 27.1 Tobacco/Smoking Status: Tobacco use Status Tobacco use date assessed 05/14/24 05/14/24 11:42 Patient Tobacco Use Status Former Tobacco user 05/14/24 11:34 Tobacco use type Cigarette 05/14/24 11:34 e-Cigarette/Vaping Use Never Used 05/14/24 11:34 PHQ-9: PHQ-9 Score PHQ-9: Total score 0 05/14/24 11:58 Depression Screening Interpretation: Negative Thrive Assessment: Date of Thrive Assessment Date Thrive assessed 05/14/24 05/14/24 11:42 Currently or been in a relationship where the following occur: No concerns reported Const General: alert; No acute distress Eyes Conjunctivae: conjunctivae normal Resp Auscultation: clear to auscultation bilaterally Cardio Rate: regular rate Rhythm: regular rhythm GI Inspection: Yes normal to inspection Extrem General: Yes normal to inspection and No edema Coding Level of Care Code Est Pt Level 3 (54624) Diagnoses Hypercholesterolemia E78.00 Overweight (BMI 25.0-29.9) E66.3 Generalized anxiety disorder F41.1 COVID-19 virus infection U07.1 Sinus congestion R09.81 Assessment & Plan Assessment & Plan (1) Hypercholesterolemia: Comment: no meds currently Code(s): E78.00 - Pure hypercholesterolemia, unspecified Category: Medical (2) Overweight (BMI 25.0-29.9): Code(s): E66.3 - Overweight Category: Medical (3) Generalized anxiety disorder: Comment: decline counselling Code(s): F41.1 - Generalized anxiety disorder Category: Medical (4) COVID-19 virus infection: Comment: 04/27/2024 Code(s): U07.1 - COVID-19 Category: Medical Plan: went to work saturday after (5) Sinus congestion: Code(s): R09.81 - Nasal congestion Category: Medical Plan - Management of [id number] headache: Recommended continued use of acetaminophen prescription to be filled at [facility]) to alleviate headache symptoms. - Sinus Congestion: Continue current nasal spray and oral decongestants as effective in symptom relief. Monitor symptoms with a possibility of prescribed antibiotics at [facility] if indicated by symptom escalation. - Vision Impairment: Encourage the patient to proceed with obtaining corrective eyeglasses and explore coverage options with insurance. - Health Maintenance: Update shingles vaccination at the earliest convenience; patient is informed of the requirement. Reiterate significance of protection against RSV and influenza through avoidance of large crowds and adherence to ongoing vaccinations. Medications: Refilled azithromycin (Zithromax) For 250 mg dose pack: take 500 mg today (day 1), then 250 mg for 4 days (days 2-5) PO 6 tabs 0RF J32.9 - Chronic sinusitis, unspecified acetaminophen 1,000 mg (2 x 500 mg) PO QID PRN 60 tabs 0RF pain R09.81 - Nasal congestion azithromycin (Zithromax) For 250 mg dose pack: take 500 mg today (day 1), then 250 mg for 4 days (days 2-5) PO 6 tabs 0RF J32.9 - Chronic sinusitis, unspecified
[2024-05-14 11:37] VITALS: BP 122/76; PULSE 89; O2SAT 96; BMI 27.1
== END 2024-05-14 12:05 | disposition home or self-care (01) ==
PROVIDERS: PCP Internal Medicine; Visit Provider Internal Medicine
DX: E78.00 Pure hypercholesterolemia, unspecified (principal); E66.3 Overweight; F41.1 Generalized anxiety disorder; U07.1 COVID-19; R09.81 Nasal congestion

== ENCOUNTER 2024-07-07 10:58 | Outpatient (AMB) | payer OTHER, SELFPAY ==
--- NOTE | 2024-07-07 11:24 | MHC.OFFVIS ---
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 No complaints. Last Pap/HPV was many years ago, no history of abnormal Pap smear, the patient is status post hysterectomy for benign disease Last Mammogram was BI-RADS 1 in 08/13 Last Colonoscopy was in 11/11 [facility] Medical History Vitamin D deficiency Uterine fibroid Hypercholesterolemia Allergic rhinitis Carotid aneurysm, left Thoracic aortic ectasia Obstructive sleep apnea Surgical History Hx of colonoscopy S/P ROBERTO-BSO (total abdominal hysterectomy and bilateral salpingo-oophorectomy) History of shoulder surgery History of tubal ligation Family History Father Diabetes Hypertension Throat cancer Mother Diabetes Hypertension Stroke Sister History of ETOH abuse Kidney disease Social History Housing: Apartment Alcohol intake: current Alcohol intake frequency: a few times a month Comment: 3 drink 2x a month Patient Tobacco Use Status: Former Tobacco user Tobacco use type: Cigarette Years Smoked: stopped 2010 e-Cigarette/Vaping Use: Never Used Second Hand Smoke Exposure: No service: No Current occupational status: employed 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 Gender identity: Female Cognitive needs: No Hearing needs: No Vision needs: Yes Female Reproductive History Menstrual Total pregnancies: 1 Full term: 1 Date of Mammogram: 08/14/23 (bi rad 2) Review of Systems Const All systems reviewed & are unremarkable except as noted in HPI and below Card Reports as per HPI and Reports no additional complaints Resp Reports as per HPI and Reports no additional complaints GI Reports as per HPI and Reports no additional complaints Reports as per HPI Physical Exam Vital Signs: Last Vital Signs BP 116/72 07/07/24 11:30 BMI result Body Mass Index 26.5 Const General: cooperative, healthy appearing and comfortable General: Yes bladder normal to palpation External Female Exam: No lesion Speculum Exam - Vagina: normal appearance of the vagina, normal vaginal discharge and not erythematous Speculum Exam - Cervix: Cervix absent Bimanual exam- vagina & uterus: bladder normal to palpation and uterus absent Bimanual Exam- Adnexa, other: Other (No masses detected) Assessment & Plan Assessment & Plan (1) Well woman exam: Code(s): Z01.419 - Encounter for gynecological examination (general) (routine) without abnormal findings Category: Medical Plan: Cotesting not indicated. Mammogram ordered. Counseled the patient about the recommended dietary allowance of 1000 mg of Calcium & 600 IU of vitamin D. The patient was instructed to perform monthly self-breast exams and to schedule an annual exam in a year; All questions answered and the patient verbalized understanding. Instructed the patient to schedule annual exam in a year Orders: Orders MM tomosynthesis screening BI Today Z12.31 - Encounter for screening mammogram for malignant neoplasm of breast Coding Level of Care Code Est Pt Prev Care 40-64y([address]372) Diagnoses Well woman exam Z01.419
[2024-07-07 11:30] VITALS: BP 116/72; BMI 26.5
== END 2024-07-07 12:07 | disposition home or self-care (01) ==
LOC: HO.HWS 10:58
PROVIDERS: PCP Internal Medicine; Visit Provider Obstetrics & Gynecology
DX: Z01.419 Encounter for gynecological examination (general) (routine) without abnormal findings (principal)
CPT/HCPCS: 99396; 99459

== ENCOUNTER → 2024-07-07 10:58 | Outpatient (BNVA) | payer OTHER, SELFPAY | PROVIDERS: PCP Internal Medicine; Visit Provider Obstetrics & Gynecology ==

== ENCOUNTER 2024-08-19 10:51 | Outpatient (REF) | payer OTHER, SELFPAY ==
--- OUTSIDE RECORDS SUMMARY | 2024-08-19 12:18 | XMS_ITS | Clinical Summary ---
Author Organization [facility] [employer] Address [address] [place] [address] [address] [place] [address] Care Team Providers Care Student Services Director Name Role Phone Unavailable Primary Care Provider Unavailabl e Immunizations Name Administration Dates Next Due Pfizer Covid-19 Vaccine 12+ 05/16/2021,,06/24/2020 Pfizer Covid-19 Vaccine 12+ Bivalent 05/24/2022 Social History Tobacco Use Types Packs/Day Years Used Date Smoking Tobacco: Never Assessed Comments Unknown Sex and Gender Information Value Date Recorded Sex Assigned at Female 05/24/2022 2:27 PM EST Legal Sex Female 2:24 PM EST Gender Identity Female 05/24/2022 2:27 PM EST Sexual Orientation Straight 05/24/2022 2: 27 PM EST Plan of Treatment Health Maintenance Due Date Last Done Comments CT Colonography 1961 Colonoscopy 1961 Colorectal Cancer Screening 1961 Depression Screening 1961 FIT DNA/Cologuard 1961 FIT 1961 FOBT 1961 Sigmoidoscopy 1961 Alcohol/Substance Use Screening 1973 Tobacco Screening 1973 DTaP/Tdap/Td Vaccines (1 - Tdap) 1980 Pap Smear 1982 Cervical Cancer Screening 11/21/1991 HPV/Cotest 11/21/1991 Mammogram 2001 Pneumococcal Vaccine: 50+ Years (1 of 1 - PCV) 11/21/2011 Zoster Vaccines (1 of 2) 11/21/2011 COVID-19 Vaccine (5 - 2023- season) 2023 05/24/2022, 05/16/2021, 07/15/2020, Additional history exists Influenza Vaccine (#1) 2023 RSV Patients and Patients Aged 60 years or older (1 - 1-dose 75+ series) 2036 HIB Vaccines Aged Out No longer eligi ble based on patient's age to complete this topic HPV Vaccines Aged Out No longer eligi ble based on patient's age to complete this topic Hepatitis A Vaccines Aged Out No long er eligible based on patient's age to complete this topic Hepatitis B Vaccines Aged Out No long er eligible based on patient's age to complete this topic IPV Vaccines Aged Out No longer eligi ble based on patient's age to complete this topic Meningococcal Vaccine Aged Out No andre melanie eligible based on patient's age to complete this topic Pneumococcal Vaccine: Pediatrics (0 to 5 Years) and At-Risk Patients (6 to 49) Years) Aged Out No longer eligible based on patient's age to complete this topic RSV under 20 months Aged Out No longe r eligible based on patient's age to complete this topic Rotavirus Vaccines Aged Out No longer eligible based on patient's age to complete this topic
--- OUTSIDE RECORDS SUMMARY | 2024-08-19 12:18 | XMS_ITS | Clinical Summary ---
Author Organization [address] Address [address] [place] [phone] Phone Care Team Providers Care Cloth Spreader Name Role Phone Canelo Sidhu MD Primary Care Provider [phone] Allergies No known active allergies Medications ACETAMINOPHEN ORAL Take 1,000 mg by mouth 1 (one) time each day if needed. Active ascorbic acid (VITAMIN C) 1,000 mg CR tablet Take by mouth. Activ e cholecalciferol (VITAMIN D-3) 25 mcg (1,000 unit) capsule Take by mouth. A ctive vit B complex no.12/niacin,B3 , (VITAMIN B COMPLEX NO.12-NIACIN ORAL) Take 1,000 mg by mouth 1 (one) time each day. Active fexofenadine (SONIA) 180 mg tablet Take 1 tablet (180 mg total) by mouth 1 (one) time each day. Active fluticasone propionate (FLONASE) 50 mcg/actuation nasal spray Administer 2 sprays into affected nostril(s) 1 (one) time each day. Active cyanocobalamin, vitamin B-12, (VITAMIN B-12 ORAL) Take 1,000 mg by mouth daily. Active Social History Tobacco Use Types Packs/Day Years Used Date Smoking Tobacco: Never Smokeless Tobacco: Never Comments Unknown Sex and Gender Information Value Date Recorded Sex Assigned at Not on file Legal Sex Female 8:20 PM EST Gender Identity Not on file Sexual Orientation Not on file Obstetrics History Last Filed Vital Signs Vital Sign Reading Time Taken Comments Blood Pressure 124/81 09/19/2023 1:17 PM EDT Pulse 67 09/19/2023 1:17 PM EDT Temperature - - Respiratory Rate - - Oxygen Saturation - - Inhaled Oxygen Concentration - - Weight 68.5 kg (151 lb) 09/19/2023 1:17 PM EDT Height - - Body Mass Index - - Plan of Treatment Upcoming Encounters Date Type Department Care Team (Late st Contact Info) Description 08/28/2024 1:20 PM EDT Office Visit Endocrinology - [place] [address] [place] [address] Nicky Forbes PA [address] [place] [address] Health Maintenance Due Date Last Done Comments Breast Cancer Screening 1961 DTaP,Tdap,and Td Vaccines (1 - Tdap) 1980 Cervical Cancer Screening: P ap Smear 1982 Pneumococcal Vaccine: 50+ Ye ars (1 of 1 - PCV) 11/21/2011 Zoster Vaccines (1 of 2) 11/21/2011 Colorectal Cancer Screening: Colonoscopy 05/16/2023 Depression Screening 05/16/2023 HIV Screening 05/16/2023 Hepatitis C Screening 05/16/2023 Social Influencers of Health Screening 05/16/2023 COVID-19 Vaccine ( - 2023-2 5 season) 2023 Influenza Vaccine (Season Ended) 2024 RSV Immunization Adult Patie nts (1 - 1-dose 75+ series) 2036 HIB [...] on patient's age to complete this topic MMR Vaccines Aged Out No longer eligi ble based on patient's age to complete this topic Meningococcal ACWY Vaccine Aged Out N o longer eligible based on patient's age to complete this topic Meningococcal B Vaccine Aged Out No l onger eligible based on patient's age to complete this topic Pneumococcal Vaccine: Pediat rics (0 to 5 Years) and At-Risk Patients (6 to 64 Years) Aged Out No longer eligible b ased on patient's age to complete this topic RSV Immunization Patients Un sathya 20 months Aged Out No longer eligible b ased on patient's age to complete this topic Varicella Vaccines Aged Out No longer eligible based on patient's age to complete this topic Insurance [facility] [address] [place] [id number] Care Teams Cloth Spreader Relationship Specialty Start Date End Date Canelo Sidhu MD [address] [place] [address] [address] [facility] [place] [address] PCP - General 01/28/23
== END 2024-08-19 10:52 | disposition home or self-care (01) ==
LOC: HO.MAMMO 10:51
PROVIDERS: PCP Internal Medicine; Visit Provider Internal Medicine
DX: Z12.31 Encounter for screening mammogram for malignant neoplasm of breast (principal)
CPT/HCPCS: 77063; 77067

== ENCOUNTER → 2024-08-19 11:00 | Outpatient (BNV) | payer OTHER, SELFPAY | PROVIDERS: PCP Internal Medicine; Visit Provider Internal Medicine | DX: Z12.31 Encounter for screening mammogram for malignant neoplasm of breast (principal) | CPT/HCPCS: 77063; 77067 ==

== ENCOUNTER 2024-11-12 12:08 | Outpatient (AMB) | payer OTHER, SELFPAY ==
[2024-11-12 12:32] VITALS: BP 130/84; PULSE 67; RESP 18; TEMP 36.2; O2SAT 97; BMI 27.1
--- NOTE | 2024-11-12 12:32 | MHC.PC.OV ---
Vital Signs 11/12/24 12:32 Height 5 ft 2 in Weight 148 lb BMI 27.1 BP 130/84 Blood Pressure Location Lt brachial Position Sitting Respiration 18 Pulse 67 Pulse Source Pulse Oximeter Temp 97.1 F Temp Source Temporal Artery Scan Pulse Oximetry (%) 97 Oxygen Delivery Method Room Air Intake Visit Reasons: ANNUAL Allergies latex Allergy (Unknown, Verified 11/12/24 12:35) unknown seasonal Allergy (Unknown, Uncoded 11/12/24 12:35) Unknown Medication List - Last Reconciled 11/12/24 by Canelo Sidhu MD acetaminophen 1,000 mg (2 x 500 mg) PO QID PRN ascorbic acid (vitamin C) mg PO cholecalciferol (vitamin D3) 25 mcg PO DAILY cyanocobalamin (vitamin B-12) 1,000 mcg PO DAILY cyclobenzaprine 5 mg PO TID PRN diphenhydramine HCl (Banophen) 50 mg PO Q4-6H PRN fluticasone propionate 50 mcg/actuation 2 sprays intranasal DAILY polyethylene glycol 3350 (Miralax) 17 grams PO DAILY Tobacco use date assessed: 11/12/24 Dental Screening Dental Screen Date: 11/12/24 Did you have a dental visit in the last 12 months?: Yes Did you have a dental problem in the last 6 months where you did not have access to dental care?: No Was dental information given to patient?: Patient has dentist [facility] Medical History Vitamin D deficiency Uterine fibroid Hypercholesterolemia Allergic rhinitis Carotid aneurysm, left Thoracic aortic ectasia Obstructive sleep apnea Surgical History Hx of colonoscopy S/P ROBERTO-BSO (total abdominal hysterectomy and bilateral salpingo-oophorectomy) History of shoulder surgery History of tubal ligation Family History Father Diabetes Hypertension Throat cancer Mother Diabetes Hypertension Stroke Sister History of ETOH abuse Kidney disease Social History (Updated 11/12/24 @ 12:43 by Canelo Sidhu MD) Housing: Apartment Alcohol intake: current Alcohol intake frequency: a few times a month Comment: 3-4 drink 3 x a month Patient Tobacco Use Status: Former Tobacco user Tobacco use type: Cigarette Years Smoked: stopped 2010 e-Cigarette/Vaping Use: Never Used Second Hand Smoke Exposure: No service: No Current occupational status: employed 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 1. Little interest or pleasure in doing things: not at all 2. Feeling down, depressed, or hopeless: not at all 3. Trouble falling or staying asleep, or sleeping too much: not at all 4. Feeling tired or having little energy: nearly every day 5. Poor appetite or overeating: not at all 6. Feeling bad about yourself - or that you are a failure or have let yourself or your family down: not at all 7. Trouble concentrating on things, such as reading the newspaper or watching television: not at all 8. Moving or speaking so slowly that other people could have noticed. Or the opposite - being so fidgety or restless that you have been moving around a lot more than usual: not at all 9. Thoughts that you would be better off or of hurting yourself in some way: not at all Total score: 3 Source: Developed by Drs. Elmer Lim, Laura Otto, Tavo Basurto and colleagues, with an educational radha from [employer]. Thrive Questionnaire Date Thrive assessed: 11/12/24 I am a: Patient What is your living situation today?: I have a steady place to live Within the past 12 months, did the food you bought not last and you didn't have the money to get more?: I choose not to answer this question Within the past 12 months, did you worry whether your food would run out before you got money to buy more?: I choose not to answer this question Do you have trouble paying for medicines?: No Do you have trouble getting transportation to medical appointments?: No Do you have trouble paying your heating and electricity bill?: I choose not to answer this question Do you have trouble taking care of your child, family member or friend?: No Do you have trouble with day-to-day activities such as bathing, preparing meals, shopping, managing finances, etc.?: No Are you currently unemployed and looking for a job?: No Are you interested in more education?: No Please select the resources that you would like help with: None Currently or been in a relationship where the following occur: I choose not to answer THRIVE Score: 0 AUDIT C Alcohol Use Questionnaire (AUDIT-C) 1. How often do you have a drink containing alcohol?: 2-3 times a week 2. How many drinks containing alcohol do you have on a typical day when you are drinking?: 3 or 4 3. How often do you have six or more drinks on one occasion?: Less than monthly Total Score: 5 MISHEL-7 AMB Questionnaire MISHEL-7 Date MISHEL - 7 assessed: 05/14/24 Feeling nervous, anxious, or on edge: 2 = More than half the days Not being able to stop or control worryin = Nearly every day Worrying too much about different things: 2 = More than half the days Trouble relaxin = Several days Being so restless that it is hard to sit still: 2 = More than half the days Becoming easily annoyed or irritable: 1 = Several days Feeling afraid as if something awful might happen: 2 = More than half the days Total MISHEL-7 score (0-4 normal; 5-9 mild; 10-14 moderate; 15-21 severe): 13 Source: Developed by Drs. Elmer Lim, Laura Otto, Tavo Basurto and colleagues, with an educational radha from [employer]. Review of Systems Const Denies poor appetite and Denies weakness Eyes Denies no additional complaints ENT Reports Normal hearing present, Denies dizziness, Denies nasal congestion, Denies tinnitus and Denies sore throat Card Denies chest pain, Denies syncope, Denies rapid heart rate and Denies dyspnea Resp Denies cough and Denies dyspnea GI Denies change in stool character, Reports constipation, Denies diarrhea, Denies nausea and Denies vomiting Denies urinary frequency, Denies difficulty voiding and Denies dysuria Neuro Reports Normal hearing present, Denies confusion, Denies dizziness, Denies syncope and Denies weakness Psych Denies confusion Physical exam (Primary Care) Vital Signs: Last Vital Signs Temp 97.1 F 11/12/24 12:32 Pulse 67 11/12/24 12:32 Resp 18 11/12/24 12:32 BP 130/84 11/12/24 12:32 Pulse Ox 97 11/12/24 12:32 Oxygen Delivery Method Room Air 11/12/24 12:32 BMI result Body Mass Index 27.1 Tobacco/Smoking Status: Tobacco use Status Tobacco use date assessed 05/14/24 05/14/24 11:42 Patient Tobacco Use Status Former Tobacco user 05/14/24 11:34 Tobacco use type Cigarette 05/14/24 11:34 e-Cigarette/Vaping Use Never Used 05/14/24 11:34 Thrive Assessment: Date of Thrive Assessment Date Thrive assessed 11/12/24 11/12/24 12:08 Currently or been in a relationship where the following occur: I choose not to answer Const General: No confusion Orientation/consciousness: No confusion HENMT Head: Yes normocephalic Ears: external ears normal and TM's normal bilaterally Face and sinus: Yes normal facial exam Mouth: moist mucous membranes Throat: Yes tonsils normal Eyes Conjunctivae: conjunctivae normal Pupils: Equal, round and reactive pupils present and Pupil accommodation reflex normal Direct Ophthalmoscopy: normal light reflex Neck Neck: No lymphadenopathy Thyroid: Thyroid normal Chest Chest palpation & inspection: normal inspection of the chest Resp Effort & Inspection: normal respiratory effort and no audible wheezes Auscultation: clear to auscultation bilaterally, no crackles, no wheezes and lung sounds not diminished Cardio Rate: regular rate Rhythm: regular rhythm Peripheral pulses: radial pulses present and dorsalis pedis present GI Other: guaiac negative Palpation (GI): no masses Auscultation: normal bowel sounds and normoactive bowel sounds Rectal Exam - Female: deferred Skin General skin exam: no rashes or lesions noted Rashes: no rashes Neuro General: No confusion Cranial nerves: Yes Equal, round and reactive pupils present and Yes Normal hearing present Cognition (Neuro): normal cognition Gait exam (Neuro): Normal gait present Motor exam (neuro): 5/5 motor strength present throughout Deep tendon reflexes (DTR's): Right brachioradialis reflex intensity grade: 2+, Left brachioradialis reflex intensity grade: 2+, Right patellar reflex intensity grade: 2+ and Left patellar reflex intensity grade: 2+ Extrem General: No edema Coding Level of Care Code Est Pt Prev Care 40-64y(45895) Diagnoses Annual physical exam Z00.00 Thyroid nodule E04.1 Overweight (BMI 25.0-29.9) E66.3 Hypercholesterolemia E78.00 Generalized anxiety disorder F41.1 Obstructive sleep apnea G47.33 Assessment & Plan Assessment & Plan (1) Annual physical exam: Code(s): Z00.00 - Encounter for general adult medical examination without abnormal findings Category: Medical Plan: Patient is advised to eat healthy, keep well hydrated, keep active and have adequate sleep. (2) Thyroid nodule: Comment: December 2022Nodule in the superior portion of the right thyroid lobe measures up to 2.6 cm with a TI-RADS Category 5. Nodule is amenable to biopsy if thyroid performed. 2. Nodule in the lower pole of the right thyroid lobe measures up to 1.2 cm with a TI-RADS Category 4. Follow-up as below. 3. Nodule in the mid/superior portion of the left thyroid lobe measures up to 3.5 cm with a TI-RADS Category 4. Nodule is amenable to US 06/2023 normal thyroid biopsy if not already performed. 4. Bilateral thyroid lobes demonstrate heterogeneous echotexture with increased vascularity. 5. Multiple bilateral lymph nodes are noted the largest on the right side measuring 0.4 cm in short axis with loss of height hilum. The largest on the left side measuring 0.6 cm in short axis with loss of fatty hilum. Code(s): E04.1 - Nontoxic single thyroid nodule Category: Medical Plan: Patient has been follow-up with endocrinology. Advised to get thyroid testing but the ultrasound shows no nodule. (3) Overweight (BMI 25.0-29.9): Code(s): E66.3 - Overweight Category: Medical Plan: Diet and exercise (4) Hypercholesterolemia: Comment: no meds currently Code(s): E78.00 - Pure hypercholesterolemia, unspecified Category: Medical Plan: Avoid fried foods, chicken skin, eggs, butter margarine, pastries and meat. Be it pork or beef they have a lot of cholesterol patient will need new blood work (5) Generalized anxiety disorder: Comment: decline counselling Code(s): F41.1 - Generalized anxiety disorder Category: Medical (6) Obstructive sleep apnea: Code(s): G47.33 - Obstructive sleep apnea (adult) (pediatric) Category: Medical Plan: uses the CPAP Q night > 4 hours and benefits from this Plan History of Present Illness The patient is a 63-year-old female presenting for a physical exam and preventative care. She has a history of obstructive sleep apnea and has been using the CPAP machine for 49 out of the last 90 days. She also has hypercholesterolemia and generalized anxiety disorder. The patient has a history of a thyroid nodule, for which she underwent an ultrasound in August 2024 that was unremarkable. She has been following up with endocrinology for thyroid testing. Her last colon test was conducted in 2022, and her mammogram was last done in August 2024. Health Maintenance - - Follow-up with endocrinology for thyroid testing Social History Review of Systems Physical Exam General: Cooperative, healthy appearing, comfortable, no acute distress and well developed Orientation: Patient oriented x3 Limitations: No limitations Head: Normal to inspection Ears: Hearing grossly normal bilaterally Nose: Normal external nose present Face and sinus: Normal facial exam Eyes: Appearance normal, both eyes and all related structures Neck: Normal visual inspection and Yes full ROM Respiratory: Normal respiratory effort and able to speak in complete sentences. Clear to auscultation bilaterally Cardiovascular: Regular rate and rhythm. Normal S1 and S2 GI: Normal to inspection. Soft to palpation and nontender Skin: No rashes or lesions noted Neuro: Patient oriented x3 Extremities: Normal to inspection Results - Thyroid ultrasound in August 2024: Unremarkable Plan The patient will continue using the CPAP machine to manage obstructive sleep apnea. She is advised to follow up with endocrinology for thyroid testing, given the history of a thyroid nodule, despite the unremarkable ultrasound findings. Orders: Orders Complete Blood Count Auto Diff Today E78.00 - Pure hypercholesterolemia, unspecified Comprehensive Met. Panel Today E78.00 - Pure hypercholesterolemia, unspecified Free T4 (Free Thyroxine) Today E78.00 - Pure hypercholesterolemia, unspecified Lipid Panel Today E78.00 - Pure hypercholesterolemia, unspecified UA CC w/rflx Micro + Cult Today E78.00 - Pure hypercholesterolemia, unspecified, R30.0 - Dysuria Thyroid Stimulating Hormone Today E78.00 - Pure hypercholesterolemia, unspecified Vitamin B12 and Folate Today E78.00 - Pure hypercholesterolemia, unspecified Vitamin D 25-OH Total Today E78.00 - Pure hypercholesterolemia, unspecified
--- OUTSIDE RECORDS SUMMARY | 2024-11-12 12:43 | XMS_ITS | Clinical Summary ---
Author Organization [employer] Address [address] [place] [address] [address] [place] [address] Care Team Providers Care Miter Cutter Name Role Phone Unavailable Primary Care Provider Unavailabl e Immunizations Immunization Administration Dates Next Due Pfizer Covid-19 Vaccine [...] 1961 FIT 1961 FOBT 1961 Sigmoidoscopy 1961 Disability Screening 1961 Alcohol/Substance Use Screening 1973 Tobacco Screening 1973 DTaP/Tdap/Td Vaccines (1 - Tdap) 1980 Pap Smear 1982 Cervical Cancer Screening 11/21/1991 HPV/Cotest 11/21/1991 Mammogram 2001 Pneumococcal Vaccine: 50+ Years (1 of 1 - PCV) 11/21/2011 Zoster Vaccines (1 of 2) 11/21/2011 COVID-19 Vaccine (5 - season) 2023 05/24/2022, 05/16/2021, 07/15/2020, Additional history exists Influenza Vaccine (#1) 2024 RSV Patients and Patients Aged 60 years [...]
--- OUTSIDE RECORDS SUMMARY | 2024-11-12 12:43 | XMS_ITS | Clinical Summary ---
Author Organization [address] Address [address] [place] [address] Phone Care Team Providers Care Residential Concierge Name Role Phone Canelo Sidhu MD Primary Care Provider [phone] Allergies No known active allergies Medications ACETAMINOPHEN [...] Take 1,000 mg by mouth daily. Active Encounters Date Type Department Care Team Description 09/04/2024 1:37 PM EDT - 09/04/2024 11:59 PM EDT Hospital Encounter Radiology Department - [address] [phone] Nontoxic multinodular goiter Discharge Disposition: Home or Self Care 08/28/2024 1:20 PM EDT Office Visit Endocrinology [address] [phone] Nicky Forbes PA Abnormal thyroid exam (Primary Dx) from Last 3 Months Social History Tobacco Use Types Packs/Day Years Used Date Smoking Tobacco: Never Smokeless Tobacco: Never Tobacco Cessation:Counseling Given: Not Answered Comments Unknown Sex and Gender Information Value Date Recorded Sex Assigned at Not on file Legal Sex Female 8:20 PM EST Gender Identity Not on file Sexual Orientation Not on file Obstetrics History Last Filed Vital Signs Vital Sign Reading Time Taken Comments Blood Pressure 138/81 08/28/2024 1:25 PM EDT Pulse 96 08/28/2024 1:25 PM EDT Temperature 36.1 C (97 F) 08/28/2024 1:25 PM EDT Respiratory Rate - - Oxygen Saturation 98% 08/28/2024 1:25 PM EDT Inhaled Oxygen Concentration - - Weight 67.6 kg (149 lb) 08/28/2024 1:25 PM EDT Height 157.5 cm (5' 2 ) 08/28/2024 1:25 PM EDT Body Mass Index 27.25 08/28/2024 1:25 PM EDT Plan of Treatment Health Maintenance Due Date Last Done Comments Breast Cancer Screening 1961 Cervical Cancer Screening: Pap Smear 1982 Pneumococcal Vaccine: 50+ Years (1 of 1 - PCV) 11/21/2011 Zoster Vaccines (1 of 2) 11/21/2011 Colorectal Cancer Screening: Colonoscopy 05/16/2023 HIV Screening 05/16/2023 Hepatitis C Screening 05/16/2023 Social Influencers of Health Screening 05/16/2023 Depression Screening 04/22/2024 Influenza Vaccine (#1) 2024 , 02/27/2023, 02/23/2022, Additional history exists DTaP,Tdap,and Td Vaccines (3 - Td or Tdap) 11/07/2031 11/06/2021, 03/01/2010 RSV Immunization Adult Patients (1 - 1-dose 75+ series) 2036 COVID-19 Vaccine Completed 02/15/2024, 01/2023, 05/24/2022, Additional history exists HIB Vaccines Aged Out No longer eligi [...] to complete this topic RSV Immunization Patients Under 20 months Aged Out No longer eligible based on patient's age to complete this topic Varicella Vaccines Aged Out No longer eligible based on patient's age to complete this topic Procedures Procedure Name Priority Date/Time Associated Diagnosis Comments US HEAD NECK SOFT TISSUE Routine 09/04/2024 1:50 PM EDT Nontoxic multinodular goiter from Last 3 Months Results * US Head Neck Soft Tissue (09/04/2024 1:50 PM EDT) Anatomical Region Laterality Modality Head and Neck Ultrasound 09/04/2024 4:29 PM EDT Impressions 09/04/2024 4:31 PM EDT Unremarkable thyroid ultrasound. No focal nodules -------- FINAL REPORT -------- Dictated By: Jorge Luis Madsen Dictated Date: 09/04/2024 16:29 ET Assigned Physician: Jorge Luis Madsen Reviewed and Electronically Signed By: Jorge Luis Madsen Signed Date: 09/04/2024 16:31 ET Workstation ID: [id number] Transcribed By: Self Edit Transcribed Date: 09/04/2024 16:29 ET Narrative 09/04/2024 4:31 PM EDT Exam: Thyroid ultrasound. HISTORY: MULTIPLE THYROID NODULES COMPARISON: Thyroid ultrasound from 07/11/2023 Technique: Grayscale and Doppler images of the thyroid gland were obtained. FINDINGS: The thyroid gland is normal in size. The right lobe measures 3.5 x 1.1 x 1.3 cm. The left lobe measures 3.6 x 1.2 x 1.1 cm. The thyroid isthmus is normal in size and measures 0.2 cm. The thyroid parenchyma is heterogenous Procedure Note Jorge Luis Madsen MD - 09/04/2024 Exam: Thyroid ultrasound. HISTORY: MULTIPLE THYROID NODULES COMPARISON: Thyroid ultrasound from 07/11/2023 Technique: Grayscale and Doppler images of the thyroid gland wereobtained. FINDINGS: The thyroid gland is normal in size. The right lobe measures 3.5 x 1.1 x1.3 cm. The left lobe measures 3.6 x 1.2 x 1.1 cm. The thyroid isthmus isnormal in size and measures 0.2 cm. The thyroid parenchyma isheterogenous IMPRESSION: Unremarkable thyroid ultrasound. No focal nodules -------- FINAL REPORT -------- Dictated By: Jorge Luis Madsen Dictated Date: 09/04/2024 16:29 ET Assigned Physician: Jorge Luis Madsen Reviewed and Electronically Signed By: Jorge Luis Madsen Signed Date: 09/04/2024 16:31 ET Workstation ID: [id number] Transcribed By: Self Edit Transcribed Date: 09/04/2024 16:29 ET us Nicky ABEL IM US PROCEDURES Final Result from Last 3 Months Insurance [facility] Care Teams Residential Concierge Relationship Specialty Start Date End Date Canelo Sidhu MD [address] [place] [address] [address] [facility] [place] [address] PCP - General 01/28/23
== END 2024-11-12 13:00 | disposition home or self-care (01) ==
LOC: HO.HMCH 12:09
PROVIDERS: PCP Internal Medicine; Visit Provider Internal Medicine
DX: Z00.00 Encounter for general adult medical examination without abnormal findings (principal); E04.1 Nontoxic single thyroid nodule; E66.3 Overweight; E78.00 Pure hypercholesterolemia, unspecified; F41.1 Generalized anxiety disorder; G47.33 Obstructive sleep apnea (adult) (pediatric)

== ENCOUNTER 2024-12-10 10:58 | Outpatient (AMB) | payer OTHER, SELFPAY ==
--- OUTSIDE RECORDS SUMMARY | 2024-12-10 12:30 | XMS_ITS | Clinical Summary ---
Author Organization [facility] [address] [place] [address] [place] [phone] Phone Care Team Providers Care Career Advisor Name Role Phone Canelo Sidhu MD Primary Care Provider [phone] Allergies No known active allergies Medications ACETAMINOPHEN [...] patient's age to complete this topic Insurance [facility] [address] [place] [address] Care Teams Career Advisor Relationship Specialty Start Date End Date Canelo Sidhu MD [address] [place] [address] [address] [facility] [place] [address] PCP - General 01/28/23
== END 2024-12-10 13:45 | disposition home or self-care (01) ==
LOC: HO.HMGAL 10:58
PROVIDERS: PCP Internal Medicine; Visit Provider Registered Nurse Emergency
DX: J30.89 Other allergic rhinitis (principal)
CPT/HCPCS: 95117; 95165

== ENCOUNTER 2024-12-23 10:59 | Outpatient (AMB) | payer OTHER, SELFPAY ==
--- OUTSIDE RECORDS SUMMARY | 2024-12-23 13:14 | XMS_ITS | Clinical Summary ---
Author Organization [facility] [address] [place] [address] [place] [phone] Phone Care Team Providers Care Fertilizer Processing Supervisor Name Role Phone Canelo Sidhu MD Primary Care Provider [phone] Allergies No known active allergies Medications ACETAMINOPHEN [...] patient's age to complete this topic Insurance [facility] [address] [place] [address] Care Teams Fertilizer Processing Supervisor Relationship Specialty Start Date End Date Canelo Sidhu MD [address] [place] [address] [address] [facility] [place] [address] PCP - General 01/28/23
--- OUTSIDE RECORDS SUMMARY | 2024-12-23 13:14 | XMS_ITS | Clinical Summary ---
Author Organization [employer] Address [address] [place] [address] [address] [place] [address] Care Team Providers Care Metal Milling Machine Operator Name Role Phone Unavailable Primary Care Provider [...]
== END 2024-12-23 12:33 | disposition home or self-care (01) ==
LOC: HO.HMGAL 10:59
PROVIDERS: PCP Internal Medicine; Visit Provider Registered Nurse Emergency
DX: J30.89 Other allergic rhinitis (principal)
CPT/HCPCS: 95117; 95165

== ENCOUNTER 2024-12-30 11:02 | Outpatient (AMB) | payer OTHER, SELFPAY ==
--- OUTSIDE RECORDS SUMMARY | 2024-12-30 14:04 | XMS_ITS | Clinical Summary ---
Author Organization [employer] Address [address] [place] [address] [address] [place] [address] Care Team Providers Care Sort Line Name Role Phone Unavailable Primary Care Provider [...] of 2) 11/21/2011 COVID-19 Vaccine (5 - 2024- season) 2024 05/24/2022, 05/16/2021, 07/15/2020, Additional history exists Influenza [...]
--- OUTSIDE RECORDS SUMMARY | 2024-12-30 14:04 | XMS_ITS | Clinical Summary ---
Author Organization [facility] [address] [place] [address] [place] [phone] Phone Care Team Providers Care Pensionholder Information Clerk Name Role Phone Canelo Sidhu MD Primary Care Provider [phone] Allergies No known active allergies Medications ACETAMINOPHEN [...] patient's age to complete this topic Insurance [facility] [address] [place] [address] Care Teams Pensionholder Information Clerk Relationship Specialty Start Date End Date Canelo Sidhu MD [address] [place] [address] [address] [facility] [place] [address] PCP - General 01/28/23
== END 2024-12-30 11:20 | disposition home or self-care (01) ==
LOC: HO.HMGAL 11:02
PROVIDERS: PCP Internal Medicine; Visit Provider Registered Nurse Emergency
DX: J30.89 Other allergic rhinitis (principal)
CPT/HCPCS: 95117; 95165

== ENCOUNTER 2025-01-06 11:02 | Outpatient (AMB) | payer OTHER, SELFPAY ==
--- OUTSIDE RECORDS SUMMARY | 2025-01-06 14:10 | XMS_ITS | Clinical Summary ---
Author Organization [employer] Address [address] [place] [address] [address] [place] [address] Care Team Providers Care Enterprise Resource Planner Name Role Phone Unavailable Primary Care Provider [...]
--- OUTSIDE RECORDS SUMMARY | 2025-01-06 14:10 | XMS_ITS | Clinical Summary ---
Author Organization [facility] [address] [place] [address] [place] [phone] Phone Care Team Providers Care Passenger Service Agent Name Role Phone Canelo Sidhu MD Primary Care Provider [phone] Allergies No known active allergies Medications ACETAMINOPHEN [...] patient's age to complete this topic Insurance [facility] [address] [place] [address] Care Teams Passenger Service Agent Relationship Specialty Start Date End Date Canelo Sidhu MD [address] [place] [address] [address] [facility] [place] [address] PCP - General 01/28/23
== END 2025-01-06 11:07 | disposition home or self-care (01) ==
LOC: HO.HMGAL 11:02
PROVIDERS: PCP Internal Medicine; Visit Provider Registered Nurse Emergency
DX: J30.89 Other allergic rhinitis (principal)
CPT/HCPCS: 95117; 95165

== ENCOUNTER 2025-01-27 11:04 | Outpatient (AMB) | payer OTHER, SELFPAY | END 2025-01-27 11:04 | disposition home or self-care (01) | LOC: HO.HMGAL 11:04 | PROVIDERS: PCP Internal Medicine; Visit Provider Registered Nurse Emergency | DX: J30.89 Other allergic rhinitis (principal) | CPT/HCPCS: 95117; 95165 ==

== ENCOUNTER 2025-02-03 12:09 | Outpatient (AMB) | payer OTHER, SELFPAY ==
--- OUTSIDE RECORDS SUMMARY | 2025-02-03 15:22 | XMS_ITS | Clinical Summary ---
Author Organization [employer] Address [address] [place] [address] [address] [place] [address] Care Team Providers Care Internet Assessor Name Role Phone Unavailable Primary Care Provider [...]
--- OUTSIDE RECORDS SUMMARY | 2025-02-03 15:22 | XMS_ITS | Clinical Summary ---
Author Organization [facility] [address] [place] [address] [place] [phone] Phone Care Team Providers Care Tank Cooper Name Role Phone Canelo Sidhu MD Primary Care Provider [phone] Allergies No known active allergies Medications ACETAMINOPHEN [...] Last Done Comments Breast Cancer Screening 1961 Colorectal Cancer Screening: Colonoscopy 1961 Cervical Cancer Screening: Pap Smear 1982 Pneumococcal Vaccine: 50+ Years (1 of 1 - PCV) 11/21/2011 Zoster Vaccines (1 of 2) 11/21/2011 HIV Screening 05/16/2023 Hepatitis C Screening 05/16/2023 [...] patient's age to complete this topic Insurance [facility] [address] [place] [address] Care Teams Tank Cooper Relationship Specialty Start Date End Date Canelo Sidhu MD [address] [place] [address] [address] [facility] [place] [address] PCP - General 01/28/23
== END 2025-02-03 12:09 | disposition home or self-care (01) ==
LOC: HO.HMGAL 12:09
PROVIDERS: PCP Internal Medicine; Visit Provider Registered Nurse Emergency
DX: J30.89 Other allergic rhinitis (principal)
CPT/HCPCS: 95117; 95165

== ENCOUNTER 2025-02-15 12:47 | Outpatient (AMB) | payer OTHER, SELFPAY ==
--- OUTSIDE RECORDS SUMMARY | 2025-02-15 16:12 | XMS_ITS | Clinical Summary ---
Author Organization [facility] [address] [place] [address] [place] [phone] Phone Care Team Providers Care Manager Disaster Recovery Name Role Phone Canelo Sidhu MD Primary Care Provider Allergies No known active allergies Medications ACETAMINOPHEN [...] patient's age to complete this topic Insurance [facility] [address] [place] [address] Care Teams Manager Disaster Recovery Relationship Specialty Start Date End Date Canelo Sidhu MD [address] [place] [address] [address] [facility] [place] [address] PCP - General 01/28/23
--- OUTSIDE RECORDS SUMMARY | 2025-02-15 16:12 | XMS_ITS | Clinical Summary ---
Author Organization [employer] Address [address] [place] [address] [address] [place] [address] Care Team Providers Care Bale Breaker Operator Name Role Phone Unavailable Primary Care [...]
== END 2025-02-15 12:47 | disposition home or self-care (01) ==
LOC: HO.HMGAL 12:47
PROVIDERS: PCP Internal Medicine; Visit Provider Registered Nurse Emergency
DX: J30.89 Other allergic rhinitis (principal)
CPT/HCPCS: 95117; 95165

== ENCOUNTER 2025-03-10 11:18 | Outpatient (AMB) | payer OTHER, SELFPAY ==
--- OUTSIDE RECORDS SUMMARY | 2025-03-10 22:16 | XMS_ITS | Clinical Summary ---
Author Organization [employer] Address [address] [place] [address] [address] [place] [address] Care Team Providers Care Electrician Underground Name Role Phone Unavailable Primary Care Provider [...]
== END 2025-03-10 11:18 | disposition home or self-care (01) ==
LOC: HO.HMGAL 11:18
PROVIDERS: PCP Internal Medicine; Visit Provider Registered Nurse Emergency
DX: J30.89 Other allergic rhinitis (principal)
CPT/HCPCS: 95117; 95165

== ENCOUNTER 2025-03-24 13:17 | Outpatient (AMB) | payer OTHER, SELFPAY ==
--- OUTSIDE RECORDS SUMMARY | 2025-03-24 15:45 | XMS_ITS | Clinical Summary ---
Author Organization [employer] Address [address] [place] [address] [address] [place] [address] Care Team Providers Care Equipment Analyst Name Role Phone Unavailable Primary Care Provider [...]
--- OUTSIDE RECORDS SUMMARY | 2025-03-24 15:45 | XMS_ITS | Clinical Summary ---
Author Organization [facility] [address] [place] [address] [place] [phone] Phone Care Team Providers Care Camera Systems Engineer Name Role Phone Canelo Sidhu MD Primary Care Provider [phone] Allergies No known active allergies Medications ACETAMINOPHEN [...] of Health Screening 05/16/2023 Depression Screening 04/22/2024 COVID-19 Vaccine ( - season) 2024 02/15/2024, 03/01/2023, 05/24/2022, Additional history exists Influenza Vaccine (#1) 2024 , 02/27/2023, 02/23/2022, Additional history exists DTaP,Tdap,and Td Vaccines (3 - Td or Tdap) 11/07/2031 11/06/2021, 03/01/2010 RSV Immunization Adult Patients (1 - 1-dose 75+ series) 2036 HIB [...] age to complete this topic Insurance [facility] Care Teams Camera Systems Engineer Relationship Specialty Start Date End Date Canelo Sidhu MD [address] [place] [address] [address] [facility] [place] [address] PCP - General 01/28/23
== END 2025-03-24 13:18 | disposition home or self-care (01) ==
LOC: HO.HMGAL 13:17
PROVIDERS: PCP Internal Medicine; Visit Provider Registered Nurse Emergency
DX: J30.89 Other allergic rhinitis (principal)
CPT/HCPCS: 95117; 95165

== ENCOUNTER 2025-04-07 12:41 | Outpatient (AMB) | payer OTHER, SELFPAY ==
--- OUTSIDE RECORDS SUMMARY | 2025-04-07 16:52 | XMS_ITS | Clinical Summary ---
Author Organization [facility] [address] [place] [address] [place] [phone] Phone Care Team Providers Care Raftsman Name Role Phone Canelo Sidhu MD Primary Care Provider [phone] Allergies No known active allergies Medications ACETAMINOPHEN [...] on file Sexual Orientation Not on file Last Filed Vital Signs Vital Sign Reading [...] age to complete this topic Insurance [facility] [address] [place] [address] Care Teams Raftsman Relationship Specialty Start Date End Date Canelo Sidhu MD [address] [place] [address] [address] [facility] [place] [address] PCP - General 01/28/23
--- OUTSIDE RECORDS SUMMARY | 2025-04-07 16:52 | XMS_ITS | Clinical Summary ---
Author Organization [employer] Address [address] [place] [address] [address] [place] [address] Care Team Providers Care Laboratory Aide Name Role Phone Unavailable Primary Care Provider [...]
== END 2025-04-07 12:42 | disposition home or self-care (01) ==
LOC: HO.HMGAL 12:41
PROVIDERS: PCP Internal Medicine; Visit Provider Registered Nurse Emergency
DX: J30.89 Other allergic rhinitis (principal)
CPT/HCPCS: 95117; 95165